=== PATIENT | female | born 1950 | race Caucasian/White ===

== ENCOUNTER 2017-09-27 03:58 | Inpatient (IN) | payer MEDICARE ==
[~2017-09-27] VITALS: Ht 166.4 cm; Wt 78.2 kg
[2017-09-27] VITALS (14 sets, daily range): BP systolic 96–164; BP diastolic 51–70; PULSE 58–81; RESP 14–24; TEMP 96.6–100.4; O2SAT 94–100
[2017-09-27] MEDS ORDERED: LORazepam 2 MG/ML VIAL IV PUSH ONE (04:15)
[2017-09-27] MEDS ORDERED: ONDANSETRON HCL 4 MG/2 ML VIAL IV PUSH ONE (04:15)
[2017-09-27] MEDS ORDERED: MORPHINE SULFATE 2 MG/ML INJ IV PUSH ONE (04:15)
--- NOTE | 2017-09-27 04:18 | PD ---
HPI . Trauma alert Chief Complaint: Trauma (Alert) Time Seen by Provider: 04:09 Travel History International Travel<30 days: No Contact w/Intl Traveler<30days: No Traveled to known affect area: No History of Present Illness HPI Kyara Sarkar approximately 70 years old with a history of spinal stenosis, status post syncope and fall with unknown mechanism of fall. Patient has abrasions to both knees, and as per EMS report, patient has weakness in upper extremities and strange feeling in both hands. Patient also had incontinence en route as well as blood pressure of 80/40 and bradycardia 54 bpm which is improved to a blood pressure of 95/50 at presentation and heart rate of 65. Patient denies having headache but does note some neck pain is on a backboard in a c-collar with strict spinal precautions, patient has full feeling and no apparent weakness of her lower extremities. Patient denies having chest pain or palpitations and does not recall any prodromal symptoms antecedent to her syncope/fall. PFSH Past Medical History Narrative Medical Spinal stenosis Social History Alcohol Use: No Tobacco Use: No Substance Use: No Allergies-Medications (Allergen,Severity, Reaction): Coded Allergies: No Known Allergies (Verified Allergy, Unknown, 09/27/17) Narrative Medication Allergies reviewed. Medication list pending Review of Systems Except as stated in HPI: all other systems reviewed are Neg General / Constitutional: No: Fever Eyes: No: Visual changes HENT: Positive: Neck Pain, No: Headaches Cardiovascular: No: Chest Pain or Discomfort Respiratory: No: Shortness of Breath Gastrointestinal: No: Abdominal Pain Genitourinary: No: Dysuria Musculoskeletal: No: Pain Skin: No Rash Neurologic: Positive: Weakness, Syncope, Paresthesia, Incontinence, Sensory Disturbance Psychiatric: No: Depression Endocrine: No: Polydipsia Hematologic/Lymphatic: No: Easy Bruising Physical Exam Narrative GENERAL: Awake and alert, oriented 3, in no obvious acute distress currently. Blood pressure 100/60, heart rate 65. Afebrile SKIN: Warm and dry. Color is normal deficit cyanosis or pallor HEAD: Atraumatic. Normocephalic. EYES: Pupils equal and round. No scleral icterus. No injection or drainage. ENT: No nasal bleeding or discharge. Mucous membranes pink and moist. NECK: Trachea midline. No JVD. Tender midline, c-collar intact. Strict spinal precautions and immobilization with c-collar and bolsters CARDIOVASCULAR: Regular rate and rhythm. S1-S2 no murmurs rubs or gallops RESPIRATORY: No accessory muscle use. Clear to auscultation. Breath sounds equal bilaterally. GASTROINTESTINAL: Abdomen soft, non-tender, nondistended. Hepatic and splenic margins not palpable. MUSCULOSKELETAL: Extremities without clubbing, cyanosis, or edema. No obvious deformities. NEUROLOGICAL: Awake and alert. Bilateral upper extremity 2/5 weakness, decreased sensation, some hyperesthesia/paresthesia noted. Bilateral lower extremities positive strength 4+/5. Incontinence noted rectally with poor tone PSYCHIATRIC: Appropriate mood and affect; insight and judgment normal. Data Data Last Documented VS Vital Signs Date Time Temp Pulse Resp B/P (MAP) Pulse Ox O2 Delivery O2 Flow Rate FiO2 09/27/17 04:24 58 16 100/51 (67) 100 Room Air 09/27/17 03:59 21 Orders Orders I-Stat Profile (09/27/17 04:02) Complete Blood Count With Diff (09/27/17 04:02) Prothrombin Time / Inr (Pt) (09/27/17 04:02) Act Partial Throm Time (Ptt) (09/27/17 04:02) Type And Screen (09/27/17 04:02) Chest, Single Ap (09/27/17 04:02) Ct Brain W/O Iv Contrast(Rout) (09/27/17 04:02) Ct Cerv Spine W/O Contrast (09/27/17 04:02) Iv Access Insert/Monitor (09/27/17 04:02) Ecg Monitoring (09/27/17 04:02) Oximetry (09/27/17 04:02) Oxygen Administration (09/27/17 04:02) Pelvis, Ap Only (Routine) (09/27/17 ) Mri C Spine W/O Contrast (09/27/17 ) Mri L Spine W/O Contrast (09/27/17 ) Mri T Spine W/O Contrast (09/27/17 ) Ondansetron Inj (Zofran Inj) (09/27/17 04:15) Morphine Inj (Morphine Inj) (09/27/17 04:15) Lorazepam Inj (Ativan Inj) (09/27/17 04:15) Dexamethasone Inj (Decadron Inj) (09/27/17 04:45) Admit Order (Ed Use Only) (09/27/17 04:37) Labs Laboratory Tests Test 09/27/17 04:03 White Blood Count 3.6 TH/MM3 Red Blood Count 3.32 MIL/MM3 Hemoglobin 11.0 GM/DL Bedside Hemoglobin 9.9 G/DL Hematocrit 31.2 % Bedside Hematocrit 29.0 % Mean Corpuscular Volume 93.9 FL Mean Corpuscular Hemoglobin 33.2 PG Mean Corpuscular Hemoglobin Concent 35.3 % Red Cell Distribution Width 12.1 % Platelet Count 204 TH/MM3 Mean Platelet Volume 6.9 FL Neutrophils (%) (Auto) 30.8 % Lymphocytes (%) (Auto) 50.2 % Monocytes (%) (Auto) 16.1 % Eosinophils (%) (Auto) 2.7 % Basophils (%) (Auto) 0.2 % Neutrophils # (Auto) 1.1 TH/MM3 Lymphocytes # (Auto) 1.8 TH/MM3 Monocytes # (Auto) 0.6 TH/MM3 Eosinophils # (Auto) 0.1 TH/MM3 Basophils # (Auto) 0.0 TH/MM3 CBC Comment DIFF FINAL Differential Comment Prothrombin Time 11.2 SEC Prothromb Time International Ratio 1.1 RATIO Activated Partial Thromboplast Time 24.7 SEC Bedside Sodium 136 MMOL/L Bedside Potassium 3.9 MMOL/L Bedside Chloride 101 MMOL/L Bedside Blood Urea Nitrogen 9 MG/DL Bedside Creatinine 0.8 MG/DL Bedside Glucose 115 MG/DL [facility] Medical Decision Making Medical Screen Exam Complete: Yes Emergency Medical Condition: Yes Medical Record Reviewed: Yes Differential Diagnosis Central cord syndrome, spinal injury, spinal shock, abrasion left knee, syncope , mechanical fall Narrative Course MRI notified and en route for stent spinal MRI. Considering patient's upper extremity neurological findings consistent with central cord injury, however will also with having incontinence and poor rectal tone, patient notes mild lower back pain, MRI of the entire spine cervical, thoracic, lumbar ordered CT cervical spine preliminary ED wet read, significant bone spurs posteriorly on the anterior aspect of the spinal canal with significant spinal stenosis and narrowing from C3 through C5 region. This would predispose towards patient's central cord mechanism as noted on presentation and exam. Neurosurgery paged, electrical tech/project manager en route Discussed with Dr Blanchard from neurosurgery, on consult, agree with management. As per Dr. Blanchard, Decadron 10 mg IV ordered, patient admitted to the ICU, case discussed with Dr. Turner technical solutions engineer. Diagnosis Primary Impression: Cervical spinal cord injury Qualified Codes: S14.109A - Unspecified injury at unspecified level of cervical spinal cord, initial encounter Additional Impressions: Central cord syndrome Qualified Codes: S14.129A - Central cord syndrome at unspecified level of cervical spinal cord, initial encounter Syncope and collapse Admitting Information Admitting Physician Requests: Admit Lavelle Salinas MD Sep 27, 2017 04:18
[2017-09-27 04:23] LABS: AUTOMATED NEUTROPHIL # 1.1 TH/MM3 (1.8-7.7); BASOPHIL % 0.2 % (0.0-2.0); EOSINOPHIL # 0.1 TH/MM3 (0-0.4); EOSINOPHIL % 2.7 % (0.0-4.0); HEMATOCRIT 31.2 % (35.0-46.0); LYMPH % 50.2 % (9.0-44.0); LYMPHOCYTE # 1.8 TH/MM3 (1.0-4.8); MEAN CELL VOLUME 93.9 FL (80.0-100.0); MEAN CORPUSCULAR HEMOGLOBIN 33.2 PG (27.0-34.0); MEAN CORPUSCULAR HGB CONC 35.3 % (32.0-36.0); MEAN PLATELET VOLUME 6.9 FL (7.0-11.0); MONO % 16.1 % (0.0-8.0); MONOCYTE # 0.6 TH/MM3 (0-0.9); NEUT % 30.8 % (16.0-70.0); PLATELET COUNT 204 TH/MM3 (150-450); RED BLOOD COUNT 3.32 MIL/MM3 (4.00-5.30); RED CELL DISTRIBUTION WIDTH 12.1 % (11.6-17.2); WHITE BLOOD COUNT 3.6 TH/MM3 (4.0-11.0)
[2017-09-27 04:35] LABS: INTERNATIONAL NORMALIZED RATIO 1.1 RATIO; PROTHROMBIN TIME - PATIENT 11.2 SEC (9.8-11.6)
[2017-09-27] MEDS ORDERED: DEXAMETHASONE SOD PHOS 20 MG/5 ML VIAL IV PUSH ONE (04:45)
--- NOTE | 2017-09-27 05:03 | RADRPT ---
EXAM DATE/TIME: 09/27/2017 04:00 [facility] COMPARISON: No previous studies available for comparison. INDICATIONS : Trauma, fall. MEDICAL HISTORY : Unobtainable. SURGICAL HISTORY : Unobtainable. ENCOUNTER: Initial ACUITY: 1 day PAIN SCORE: Non-responsive. LOCATION: Bilateral pelvis FINDINGS: A single frontal view of the pelvis demonstrates no evidence of fracture. The bony pelvic ring is in tact. Bony mineralization is normal. The soft tissues are intact. CONCLUSION: 1. No acute fracture or dislocation. Keith Gutierres MD on September 27, 2017 at 5:01 Board Certified Radiologist. This report was verified electronically.
--- NOTE | 2017-09-27 05:03 | RADRPT ---
EXAM DATE/TIME: 09/27/2017 04:00 [facility] COMPARISON: No previous studies available for comparison. INDICATIONS : Trauma, fall. MEDICAL HISTORY : Unobtainable. SURGICAL HISTORY : Unobtainable ENCOUNTER: Initial ACUITY: 1 day PAIN SCORE: Non-responsive. LOCATION: Bilateral chest FINDINGS: A single view of the chest demonstrates the lungs to be symmetrically aerated without evidence of mas s, infiltrate or effusion. The cardiomediastinal contours are unremarkable. Osseous structures are intact. CONCLUSION: 1. Negative portable chest status post trauma. Keith Gutierres MD on September 27, 2017 at 5:02 Board Certified Radiologist. This report was verified electronically.
--- NOTE | 2017-09-27 05:05 | RADRPT ---
EXAM DATE/TIME: 09/27/2017 04:13 [facility] COMPARISON: No previous studies available for comparison. INDICATIONS : Trauma alert; fall, neck injury. RADIATION DOSE: 66.34 CTDIvol (mGy) MEDICAL HISTORY : Non-responsive. SURGICAL HISTORY : Non-responsive. ENCOUNTER: Initial ACUITY: 1 day PAIN SCALE: 6/10 LOCATION: cranial TECHNIQUE: Multiple contiguous axial images were obtained of the head. Using automated exposure control and adj ustment of the mA and/or kV according to patient size, radiation dose was kept as low as reasonably a chievable to obtain optimal diagnostic quality images. DICOM format image data is available electro nically for review and comparison. FINDINGS: CEREBRUM: The ventricles are normal for age. No evidence of midline shift, mass lesion, hemorrhage or acute in farction. No extra-axial fluid collections are seen. POSTERIOR FOSSA: The cerebellum and brainstem are intact. The 4th ventricle is midline. The cerebellopontine angle i s unremarkable. EXTRACRANIAL: The visualized portion of the orbits is intact. SKULL: The calvaria is intact. No evidence of skull fracture. CONCLUSION: 1. No acute intracranial abnormality. Keith Gutierres MD on September 27, 2017 at 5:03 Board Certified Radiologist. This report was verified electronically.
--- NOTE | 2017-09-27 05:11 | RADRPT ---
EXAM DATE/TIME: 09/27/2017 04:13 [facility] COMPARISON: No previous studies available for comparison. INDICATIONS : Trauma alert; fall, neck injury. RADIATION DOSE: 21.06 CTDIvol (mGy) MEDICAL HISTORY : Non-responsive. SURGICAL HISTORY : Non-responsive. ENCOUNTER: Initial ACUITY: 1 day PAIN SCALE: 6/10 LOCATION: Bilateral neck TECHNIQUE: Volumetric scanning of the cervical spine was performed. Multiplanar reconstructions i n the sagittal, coronal and oblique axial planes were performed. Using automated exposure control a nd adjustment of the mA and/or kV according to patient size, radiation dose was kept as low as reason ably achievable to obtain optimal diagnostic quality images. DICOM format image data is available e lectronically for review and comparison. 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 Vertebral body heigh ts are maintained. Osseous structures are intact without evidence for acute bony fracture. Dens is in tact. Sagittal alignment is maintained. There is a normal C1-2 relationship. Facets are normally alig cathy. There is no significant prevertebral soft tissue hematoma. Degenerative spondylosis of the lower cervical spine most prominently at C5-6. Moderate central canal bony central canal stenosis at C4 le brendan do to prominent ossification of the posterior longitudinal ligament. No significant cervical salomón opathy or gross mass. Subcentimeter left thyroid nodule. Visualized lung apices are clear without pne umothorax. CONCLUSION: 1. No acute fracture or subluxation. 2. 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 Keith Gutierres MD on September 27, 2017 at 5:04 Board Certified Radiologist. This report was verified electronically.
[2017-09-27] MEDS ORDERED: BISACODYL 10 MG SUPP RECTAL PRN (05:30)
[2017-09-27] MEDS ORDERED: SODIUM CHLORIDE 0.9% FLUSH 10 ML FLUSH IV FLUSH PRN (05:30)
[2017-09-27] MEDS ORDERED: MISCELLANEOUS NURSING INFORMATION XX SCH (05:30)
[2017-09-27] MEDS ORDERED: RESP: ALBUTEROL 2.5 MG/IPRATROPIUM 0.5 MG NEB (PRN) INH (05:30)
[2017-09-27] MEDS ORDERED: MAGNESIUM HYDROXIDE SUSP 30 ML CUP PO PRN (05:30)
[2017-09-27] MEDS ORDERED: SODIUM CHLOR 0.9% 1000 ML INJ 1,000 ML IV SCH (05:30)
[2017-09-27] MEDS ORDERED: TEMAZEPAM 15 MG CAP PO PRN (05:30)
[2017-09-27] MEDS ORDERED: SENNOSIDES 8.6 MG TAB PO PRN (05:30)
[2017-09-27] MEDS ORDERED: CHLORHEXIDINE GLUCONATE 2 % 1 PACK (2 CLOTHS) TOP PRN (05:30)
[2017-09-27] MEDS ORDERED: ONDANSETRON HCL 4 MG/2 ML VIAL IV PUSH PRN (05:30)
[2017-09-27] MEDS ORDERED: LACTULOSE SYRUP 20 GM/30 ML CUP PO PRN (05:30)
--- NOTE | 2017-09-27 05:35 | HHI.HP ---
HPI Service Critical Care Medicine Primary Care Physician Jaylon Pope Jr, MD Admission Diagnosis Cervical Spinal Cord Injury (Central Cord Syndrome) Diagnosis: Travel History International Travel<30 Days: No Contact w/Intl Traveler <30 Da: No Traveled to Known Affected Are: No History of Present Illness 70 years old female with a history of spinal stenosis, had an episode of syncope and fall with unknown mechanism of fall. Patient has abrasions to both knees. The patient has weakness in upper extremities and strange feeling in both hands. Patient also had incontinence en route as well as blood pressure of 80/40 and bradycardia 54 bpm which is improved to a blood pressure of 95/50 at presentation and heart rate of 65. Patient denies having headache but does note some neck pain is on a backboard in a c-collar with strict spinal precautions, patient has full feeling and no apparent weakness of her lower extremities. The CT of the C-spine shows prominent ossification of the posterior longitudinal ligament at C3-5 and C7-T2 with moderate bony central canal narrowing at C4 level. MRI of C and thoracic spine pending Review of Systems Constitutional: DENIES: Diaphoretic episodes, Fatigue, Fever, Weight gain, Weight loss, Chills, Dizziness, Change in appetite, Night Sweats Endocrine: DENIES: Abnorml menstrual pattern, Heat/cold intolerance, Polydipsia , Polyuria, Polyphagia Eyes: COMPLAINS OF: Blurred vision, DENIES: Diplopia, Eye inflammation, Eye pain, Vision loss, Photosensitivity, Double Vision Ears, nose, mouth, throat: DENIES: Tinnitus, Hearing loss, Vertigo, Nasal discharge, Oral lesions, Throat pain, Hoarseness, Ear Pain, Running Nose, Epistaxis, Sinus Pain, Toothache, Odynophagia Respiratory: DENIES: Apneas, Cough, Snoring, Wheezing, Hemoptysis, Sputum production, Shortness of breath Cardiovascular: DENIES: Chest pain, Palpitations, Syncope, Dyspnea on Exertion , PND, Lower Extremity Edema, Orthopnea, Claudication Gastrointestinal: DENIES: Abdominal pain, Black stools, Bloody stools, Constipation, Diarrhea, Nausea, Vomiting, Difficulty Swallowing, Anorexia Genitourinary: DENIES: Abnormal vaginal bleeding, Dysmenorrhea, Dyspareunia, Sexual dysfunction, Urinary frequency, Urinary incontinence, Urgency, Hematuria , Dysuria, Nocturia, Vaginal discharge Musculoskeletal: DENIES: Joint pain, Muscle aches, Stiffness, Joint Swelling, Back pain, Neck pain Integumentary: DENIES: Abnormal pigmentation, Pruritus, Rash, Nail changes, Breast masses, Breast skin changes, Nipple discharge Hematologic/lymphatic: DENIES: Bruising, Lymphadenopathy Immunologic/allergic: DENIES: Eczema, Urticaria Neurologic: COMPLAINS OF: Abnormal gait, Paresthesias, Poor Balance, DENIES: Headache, Localized weakness, Seizures, Speech Problems, Tremor Psychiatric: DENIES: Anxiety, Confusion, Mood changes, Depression, Hallucinations, Agitation, Suicidal Ideation, Homicidal Ideation, Delusions Past Family Social History Allergies: Coded Allergies: No Known Allergies (Verified Allergy, Unknown, 09/27/17) Past Medical History Spinal stenosis Past Surgical History No past surgical history Family History No family history of cancer Social History Alcohol Use: No Tobacco Use: No Substance Use: No Physical Exam Vital Signs Vital Signs Date Time Temp Pulse Resp B/P (MAP) Pulse Ox O2 Delivery O2 Flow Rate FiO2 09/27/17 05:09 14 96/51 (66) 96 Room Air 09/27/17 04:24 58 16 100/51 (67) 100 Room Air 09/27/17 03:59 100 09/27/17 03:59 100 21 Physical Exam GENERAL: Well-nourished, well-developed patient. SKIN: Warm and dry. HEAD: Normocephalic. EYES: No scleral icterus. No injection or drainage. NECK: Supple, trachea midline. No JVD or lymphadenopathy. CARDIOVASCULAR: Regular rate and rhythm without murmurs, gallops, or rubs. RESPIRATORY: Breath sounds equal bilaterally. No accessory muscle use. GASTROINTESTINAL: Abdomen soft, non-tender, nondistended. MUSCULOSKELETAL: No cyanosis, or edema. BACK: Nontender without obvious deformity. NEURO EXAM: Awake and alert. Bilateral upper extremity 2/5 weakness, decreased sensation, some hyperesthesia/paresthesia noted. Bilateral lower extremities positive strength 4+/5. Laboratory Laboratory Tests Test 09/27/17 04:03 White Blood Count 3.6 Red Blood Count 3.32 Hemoglobin 11.0 Bedside Hemoglobin 9.9 Hematocrit 31.2 Bedside Hematocrit 29.0 Mean Corpuscular Volume 93.9 Mean Corpuscular Hemoglobin 33.2 Mean Corpuscular Hemoglobin Concent 35.3 Red Cell Distribution Width 12.1 Platelet Count 204 Mean Platelet Volume 6.9 Neutrophils (%) (Auto) 30.8 Lymphocytes (%) (Auto) 50.2 Monocytes (%) (Auto) 16.1 Eosinophils (%) (Auto) 2.7 Basophils (%) (Auto) 0.2 Neutrophils # (Auto) 1.1 Lymphocytes # (Auto) 1.8 Monocytes # (Auto) 0.6 Eosinophils # (Auto) 0.1 Basophils # (Auto) 0.0 CBC Comment DIFF FINAL Differential Comment Prothrombin Time 11.2 Prothromb Time International Ratio 1.1 Activated Partial Thromboplast Time 24.7 Bedside Sodium 136 Bedside Potassium 3.9 Bedside Chloride 101 Bedside Blood Urea Nitrogen 9 Bedside Creatinine 0.8 Bedside Glucose 115 Result Diagram: 09/27/17 0403 Septic Shock Reassessment Septic shock perfusion: reassessment completed Caprini VTE Risk Assessment Caprini VTE Risk Assessment: Mod/High Risk (score >= 2) Caprini Risk Assessment Model Point Value = 1 Point Value = 2 Point Value = 3 Point Value = 5 Age 41-60 Minor surgery BMI > 25 kg/m2 Swollen legs Varicose veins or History of unexplained or recurrent spontaneous Oral contraceptives or hormone replacement Sepsis (< 1 month) Serious lung disease, including pneumonia (< 1 month) Abnormal pulmonary function Acute myocardial infarction Congestive heart failure (< 1 month) History of inflammatory bowel disease Medical patient at bed rest Age 61-74 Arthroscopic surgery Major open surgery (> 45 min) Laparoscopic surgery (> 45 min) Malignancy Confined to bed (> 72 hours) Immobilizing plaster cast Central venous access Age >= 75 History of VTE Family history of VTE Factor V Leiden Prothrombin 30038L Lupus anticoagulant Anticardiolipin antibodies Elevated serum homocysteine Heparin-induced thrombocytopenia Other congenital or acquired thrombophilia Stroke (< 1 month) Elective arthroplasty Hip, pelvis, or leg fracture Acute spinal cord injury (< 1 month) Prophylaxis Regimen Total Risk Factor Score Risk Level Prophylaxis Regimen 0-1 Low Early ambulation 2 Moderate Order ONE of the following: *Sequential Compression Device (SCD) *Heparin 5000 units SQ BID 3-4 Higher Order ONE of the following medications: *Heparin 5000 units SQ TID *Enoxaparin/Lovenox 40 mg SQ daily (WT < 150 kg, CrCl > 30 mL/min) *Enoxaparin/Lovenox 30 mg SQ daily (WT < 150 kg, CrCl > 10-29 mL/min) *Enoxaparin/Lovenox 30 mg SQ BID (WT < 150 kg, CrCl > 30 mL/min) AND/OR *Sequential Compression Device (SCD) 5 or more Highest Order ONE of the following medications: *Heparin 5000 units SQ TID (Preferred with Epidurals) *Enoxaparin/Lovenox 40 mg SQ daily (WT < 150 kg, CrCl > 30 mL/min) *Enoxaparin/Lovenox 30 mg SQ daily (WT < 150 kg, CrCl > 10-29 mL/min) *Enoxaparin/Lovenox 30 mg SQ BID (WT < 150 kg, CrCl > 30 mL/min) AND *Sequential Compression Device (SCD) Assessment and Plan Assessment and Plan Spinal cord injury - Severe C-spine stenosis as a underlying condition - Hyperextension injury - Decadron per neurosurgery request - C collar - MRI pending - MAP goal above 85 - PT and OT eval and treat as tolerated - Neurosurgical evaluation pending Hypotension - Leukopenia - Blood cultures/urine cultures - Antibiotics if indicated - Aggressive IV fluid hydration Syncope - Series of troponins - Telemetry - 2-D echo - Ultrasound carotids DVT GI prophylaxis - Teds SCDs - Lovenox - Pepcid Critical Care: The total critical care time was 35 minutes. Time to perform other separately billable procedures was not included in the critical care time. Joe Turner MD Sep 27, 2017 5:35 am
[2017-09-27] MEDS ORDERED: TERBUTALINE INJ 1 MG/ML AMP SQ PRN ×2 (05:45→06:15)
[2017-09-27] MEDS ORDERED: PHENYLEPHRINE INJ 40 MG in DEXTROSE 5% IN WATE 500 ML INJ 496 ML IV PRN ×4 (05:45→15:00)
[2017-09-27] MEDS ORDERED: ENOXAPARIN SODIUM 40 MG/0.4 ML SYRINGE SQ SCH (06:00)
[2017-09-27] MEDS ORDERED: SODIUM CHLOR 0.9% 1000 ML INJ 1,000 ML IV ONE ×3 (06:00)
[2017-09-27] MEDS ORDERED: PHENYLEPHRINE HCL 10 MG/ML VIAL ONE ×2 (06:04→06:11)
--- NOTE | 2017-09-27 06:06 | RADRPT ---
EXAM DATE/TIME: 09/27/2017 05:00 [facility] COMPARISON: No previous studies available for comparison. INDICATIONS : Trauma. Fell from standing, Upper extremity numbness, loss of bowel control. MEDICAL HISTORY : Hypertension. Diabetes mellitus type 2. SURGICAL HISTORY : Hysterectomy. Discectomy, lumbar. Cholecystectomy. ENCOUNTER: Initial ACUITY: 1 day PAIN SCORE: 4/10 LOCATION: [facility] TECHNIQUE: Multiplanar, multisequence MRI examination of the cervical spine was performed. FINDINGS: VERTEBRAE: Normal vertebral body height. Homogeneous marrow signal. ALIGNMENT: Size alignment is maintained. CORD: Flattening of the cervical cord at C3-6 without significant cord signal abnormality. POST FOSSA: The cerebellar tonsils are normal in position. C2-C3: The thecal sac has a normal configuration. There is no evidence of disc herniation or spinal canal s tenosis. The neural foramina are patent bilaterally. C3-C4: Mild diffuse disc bulge. Prominent posterior longitudinal ligament calcifications with resultant sev ere central canal narrowing at to approximately 5 mm. There is flattening of the cervical cord withou t significant cord signal abnormality. Neuroforamina are patent bilaterally. C4-C5: Mild diffuse disc bulge. Prominent posterior longitudinal ligament calcifications with resultant sev ere central canal narrowing at to approximately 5 mm. There is flattening of the cervical cord with v jaja subtle increased central cord signal. Neuroforamina are patent bilaterally. Mild bilateral facet arthropathy. C5-C6: Mild diffuse disc bulge. Prominent posterior longitudinal ligament calcifications with resultant sev ere central canal narrowing at to approximately 6 mm. There is flattening of the cervical cord withou t significant cord signal abnormality. Neuroforamina are patent bilaterally. Mild bilateral facet art hropathy. C6-C7: The thecal sac has a normal configuration. There is no evidence of disc herniation or spinal canal s tenosis. The neural foramina are patent bilaterally. C7-T1: Right eccentric posterior disc osteophyte complex with less prominent opacity ossification of the pos terior longitudinal ligament. Central canal measures 9 mm. No significant neural foraminal narrowing. CONCLUSION: 1. No acute fracture or subluxation. 2. Prominent posterior longitudinal ligament calcifications with resultant severe central canal narro wing at C3-6. There is flattening of cervical cord at these levels with very subtle cord signal abnor mality at C4-5. Keith Gutierres MD on September 27, 2017 at 5:58 Board Certified Radiologist. This report was verified electronically.
--- NOTE | 2017-09-27 06:14 | RADRPT ---
EXAM DATE/TIME: 09/27/2017 05:00 [facility] COMPARISON: MRI CERVICAL SPINE W/O CONTRAST, September 27, 2017, 5:00. INDICATIONS : Trauma. Fell from standing, Upper extremity numbness, loss of bowel control. MEDICAL HISTORY : Hypertension. Diabetes mellitus type 2. SURGICAL HISTORY : Discectomy, lumbar. Cholecystectomy. Hysterectomy. ENCOUNTER: Initial ACUITY: 1 day PAIN SCORE: 4/10 LOCATION: Paraspinal TECHNIQUE: Multiplanar multisequence MRI of the thoracic spine was performed. FINDINGS: VERTEBRA: Normal vertebral body height. Homogeneous marrow signal. ALIGNMENT: Sagittal alignment is maintained. CORD: Normal position and configuration. T1-T2: Normal. T2-T3: The thecal sac has a normal diameter. No evidence of disc bulge or protrusion. T3-T4: The thecal sac has a normal diameter. No evidence of disc bulge or protrusion. T4-T5: Disc space narrowing with posterior disc osteophyte complex resulting in mild effacement of the anter ior thecal sac. No significant neural foraminal stenosis. T5-T6: Disc space narrowing. Minimal diffuse disc bulge without significant central canal or neural foramina l stenosis. T6-T7: Disc space narrowing. Left paracentral disc protrusion effacing the left anterior lateral recess. No significant neural foraminal stenosis. T7-T8: Disc space narrowing. Posterior disc osteophyte complex with mild effacement of the anterior thecal s ac. No significant neural foraminal stenosis. T8-T9: Disc space narrowing. The thecal sac has a normal diameter. No evidence of disc bulge or protrusion T9-T10: Disc space narrowing with minimal posterior disc osteophytes and bilateral facet arthropathy without significant central canal stenosis. T10-T11: The thecal sac has a normal diameter. No evidence of disc bulge or protrusion. T11-T12: The thecal sac has a normal diameter. No evidence of disc bulge or protrusion. T12-L1: The thecal sac has a normal diameter. No evidence of disc bulge or protrusion. CONCLUSION: 1. Degenerative spondylosis of the mid thoracic spine most prominently at T6-9. There is effacement o f the left anterior lateral recess at T6-7. Otherwise, no significant central canal stenosis or cord signal abnormality. 1. Keith Gutierres MD on September 27, 2017 at 6:05 Board Certified Radiologist. This report was verified electronically.
[2017-09-27] MEDS ORDERED: PHENYLEPHRINE 40 MG in D5W 500 ML IV PRN (06:15)
--- NOTE | 2017-09-27 06:22 | RADRPT ---
EXAM DATE/TIME: 09/27/2017 05:00 [facility] COMPARISON: PELVIS AP ONLY, September 27, 2017, 4:00. INDICATIONS : Trauma. Fell from standing, Upper extremity numbness, loss of bowel control. MEDICAL HISTORY : Hypertension. Diabetes mellitus type 2. SURGICAL HISTORY : Discectomy, lumbar. Hysterectomy. Cholecystectomy. ENCOUNTER: Initial ACUITY: 1 day PAIN SCORE: 5/10 LOCATION: Paraspinal TECHNIQUE: Multiplanar multisequence MRI of the lumbar spine was performed without contrast. FINDINGS: The most caudal appearing lumbar vertebra is numbered as L5. Apparent sacralization of L5. VERTEBRAE: Slightly heterogeneous degenerative signal. Mild dextroscoliosis of the lumbar spine. Sagittal alignm ent is maintained. CONUS: Normal level and configuration. T12-L1: Bilateral facet arthropathy. No significant central canal or neural foraminal stenosis. L1-L2: Mild right eccentric disc bulge without central canal or neural foraminal stenosis. L2-L3: Diffuse disc bulge, prominent ligamentum flavum hypertrophy and mild bilateral facet arthropathy. Feli tral canal narrowing to 9 mm. Caudal mild bilateral neural foraminal narrowing. L3-L4: Disc space narrowing with diffuse disc bulge and posterior disc protrusion, ligamentum flavum hypertr ophy and bilateral moderate facet arthropathy. Central canal narrowing to approximately 6 mm. Mild ca udal bilateral neural foraminal narrowing. L4-L5: Disc space narrowing with diffuse disc bulge, posterior osteophytes and central disc protrusion. Mild bilateral facet arthropathy. Central canal narrowing to approximately 9 mm. Mild left and mild to mo derate right caudal neural foraminal narrowing. L5-S1: The thecal sac has a normal diameter. No evidence of disc bulge or protrusion. The neural foramina are patent bilaterally. CONCLUSION: 1. Multilevel degenerative spondylosis of the lumbar spine most prominently at L3-4 with moderate to severe central canal narrowing to 6 mm. 2. Please see above for detailed description of each level. Keith Gutierres MD on September 27, 2017 at 6:14 Board Certified Radiologist. This report was verified electronically.
[2017-09-27] MEDS: SODIUM CHLORIDE 0.9% FLUSH 10 ML FLUSH IV FLUSH SCH ×2 (07:56→20:37)
[2017-09-27] MEDS: DOCUSATE SODIUM 50 MG/SENNA 8.6 MG TAB PO SCH ×2 (08:48→20:38)
[2017-09-27] MEDS: FAMOTIDINE 20 MG/2 ML VIAL IV PUSH SCH ×2 (08:50→20:37)
--- NOTE | 2017-09-27 09:26 | RADRPT ---
EXAM DATE/TIME: 09/27/2017 08:41 [facility] COMPARISON: No previous studies available for comparison. INDICATIONS : Syncope. MEDICAL HISTORY : Hypercholesterolemia. Gastroesophageal reflux disease. Blurred vision. Arthritis. Paresthesia. Diab etes. SURGICAL HISTORY : Cholecystectomy. Hysterectomy. Laminectomy. ENCOUNTER: Initial ACUITY: 1 day PAIN SCORE: 0/10 LOCATION: Bilateral neck PEAK SYSTOLIC VELOCITIES (cm/sec): ICA/CCA RATIO: Right: 0.8 Left: 0.8 ICA: Right: 110 Left: 127 CCA: Right: 145 Left: 155 ECA: Right: 96.3 Left: 85 VERTEBRAL: Right: 58 antegrade Left: 54 antegrade Elevated flow velocities and ICA/CCA ratios have been found to correlate with increased degrees of vessel stenosis, calculated as percentage of diameter relative to a normal segment of distal ICA/CCA FINDINGS: RIGHT CAROTID: No significant stenosis is visualized. The waveforms are within normal limits. LEFT CAROTID: No significant stenosis is visualized. The waveforms are within normal limits. VERTEBRAL ARTERIES: Antegrade flow is seen in both vertebral arteries. MISCELLANEOUS: None. CONCLUSION: No evidence of flow-limiting carotid stenosis. Quique Goodson MD on September 27, 2017 at 9:25 Board Certified Radiologist. This report was verified electronically.
[2017-09-27] MEDS ORDERED: DEXTROSE 50% IN WATER 50 ML VIAL(D50) IV PUSH PRN (10:15)
[2017-09-27] MEDS ORDERED: GLUCAGON 1 MG/ML VIAL OTHER PRN (10:15)
[2017-09-27] MEDS: NS + KCL 20 MEQ INJ 1,000 ML IV SCH ×2 (10:15→17:52)
[2017-09-27 10:28] LABS: AUTOMATED NEUTROPHIL # 7.6 TH/MM3 (1.8-7.7); BASOPHIL % 0.2 % (0.0-2.0); EOSINOPHIL % 0.1 % (0.0-4.0); HEMOGLOBIN 11.3 GM/DL (11.6-15.3); LYMPH % 7.5 % (9.0-44.0); LYMPHOCYTE # 0.6 TH/MM3 (1.0-4.8); MEAN CELL VOLUME 94.7 FL (80.0-100.0); MEAN CORPUSCULAR HEMOGLOBIN 33.4 PG (27.0-34.0); MEAN CORPUSCULAR HGB CONC 35.3 % (32.0-36.0); MEAN PLATELET VOLUME 6.9 FL (7.0-11.0); MONO % 2.6 % (0.0-8.0); MONOCYTE # 0.2 TH/MM3 (0-0.9); NEUT % 89.6 % (16.0-70.0); PLATELET COUNT 214 TH/MM3 (150-450); RED BLOOD COUNT 3.38 MIL/MM3 (4.00-5.30); RED CELL DISTRIBUTION WIDTH 12.3 % (11.6-17.2); WHITE BLOOD COUNT 8.5 TH/MM3 (4.0-11.0)
[2017-09-27 10:57] LABS: ALBUMIN 3.2 GM/DL (3.4-5.0); ALKALINE PHOSPHATASE 60 U/L (45-117); ALT (GPT) 107 U/L (10-53); AST (GOT) 91 U/L (15-37); BICARBONATE 23.3 MEQ/L (21.0-32.0); BLOOD UREA NITROGEN 9 MG/DL (7-18); CALCIUM 7.2 MG/DL (8.5-10.1); CHLORIDE 105 MEQ/L (98-107); CREATININE 0.75 MG/DL (0.50-1.00); GLOMERULAR FILTRATION RATE 77 ML/MIN (>89); GLUCOSE,RANDOM 160 MG/DL (74-106); MAGNESIUM 1.7 MG/DL (1.5-2.5); PHOSPHORUS 2.4 MG/DL (2.5-4.9); SODIUM (NA) 135 MEQ/L (136-145); TOTAL BILIRUBIN ADULT 0.3 MG/DL (0.2-1.0); TOTAL PROTEIN 6.7 GM/DL (6.4-8.2); TROPONIN I LESS THAN 0.02 NG/ML (0.02-0.05)
[2017-09-27 11:00] LABS: CALCIUM-PROTEIN CORRECTED 7.4 MG/DL (8.5-10.1)
[2017-09-27] MEDS: DEXAMETHASONE SOD PHOS 4 MG/ML VIAL IV PUSH SCH ×2 (11:26→17:52)
[2017-09-27] MEDS: HYDROmorphone HCL PF 2 MG/ML VIAL IV PRN ×3 (11:26→21:47)
--- NOTE | 2017-09-27 11:50 | MB ---
cc: Emil Chinchilla MD, Alfonsa MD DATE OF CONSULT: 09/27/2017 REASON FOR CONSULTATION: Cervical spinal cord injury HISTORY OF PRESENT ILLNESS: This is a 66 year-old female who this morning had a syncopal episode while she was in the bathroom urinating. She felt light-headed and dizzy prior to this and fell and lost consciousness. The next thing she remembers waking up with her screaming at her and slapping her face and she was unable to move her arms or legs with loss of complete sensation in the whole body. She also relates that she was having a difficult time exchanging air and the relates that she was very pale. Subsequently, her sensation started to improve more so in the legs than arms along with movement, although she still has numbness in her upper extremities and inability to move her upper extremities, but the lower extremity strength is improving. She was bradycardic and hypotensive en route which has improved since her admission, but she has also been placed on phenylephrine IV drip to provide hemodynamic support. She relates that she has had two syncopal episodes, one a couple years ago and one as a child, although does not relate having had any workup for this. She denies any chest pain or shortness of breath. She had a lumbar laminectomy by Dr. 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 She relate the history of cervical stenosis in the past, but this was treated conservatively. Trauma workup on presentation this morning as a trauma alert included a CT scan of the head which was negative for any intracranial abnormality. CT of the cervical spine reveals significant ossification of the posterior longitudinal ligament extending from the C3-C5 levels along with some C7-T2 ossification. Also, there is significant stenosis in the cervical spine from this. No fractures are noted. She subsequently has also had an MRI scan of the cervical and thoracic spine which reveals severe stenosis from C3-C7 levels with cord compression and cord contusion injury at the C4-5 level. Pelvis x-rays are negative. She has been admitted to the intensive care unit for close neurologic monitoring and hemodynamic support with IV fluids and vasopressors on board. She also initially received Decadron. PAST MEDICAL HISTORY: 1. Cervical spinal stenosis. 2. Lumbar laminectomy with chronic right foot and leg weakness. 3. Cholecystectomy. 4. Diet controlled diabetes mellitus. MEDICATIONS: None. ALLERGIES: NO KNOWN DRUG ALLERGIES. SOCIAL HISTORY: She denies any alcohol or tobacco use. She is and her is here with her. FAMILY HISTORY: Coronary artery disease and diabetes in mother and father. REVIEW OF SYSTEMS: Complains of neck pain. Complains of dizziness and light headedness, although denies any headaches. She complains of some blurred vision. Initially complains of dyspnea, but this has resolved. Denies any chest pain or palpitations. Complains of numbness in the upper extremities. Complains of inability to move the upper extremities. Relates that she has weakness in the lower extremities, but this is improving. No history of incontinence prior to this, although she has been unable to void since the syncopal episode and the fall this morning. No fevers or chills. No history of easy bleeding or bruising. No recent weight gain or weight loss. Otherwise review of systems is negative for her other systems. LABORATORY STUDIES: White blood cell count 3.6, hemoglobin 11, platelet count 204, PT 11.2, INR 1.1, PTT 24.7. Sodium 137, potassium 3.9, BUN 9, creatinine 0.8, glucose 115. Toxicology screen is negative. PHYSICAL EXAM: VITALS: Temperature 98.6, pulse at this point is 80, blood pressure 97/53 on vasopressors, respiratory rate 17, oxygen saturation is 94% on room air. HEAD: Normocephalic. No Mederos's or raccoon sign. NECK: Immobilized in a hard collar. CHEST: Clear to auscultation bilaterally. HEART: Regular rate and rhythm. Normal S1 and S2. No murmurs. ABDOMEN: Soft, nontender. No hepatosplenomegaly. EXTREMITIES: No cyanosis, edema or deformity. SKIN: Warm and dry with no rashes, pustules or abrasions noted. GENERAL CONDITION: This is an elderly obese female in no acute distress. EYES: No icterus, injection or drainage. Pupils are equal and reactive. EARS, NOSE AND THROAT: No nasal bleeding or hemotympanum. Mucous membranes are pink and moist. NEUROLOGIC: She is awake and alert. She is oriented x 3. Pupils are equal and reactive. Extraocular muscles are intact. Face is symmetric. Tongue is midline. Motor strength in the upper extremities, she is 0/5 in the deltoids, biceps she is 1/5, triceps 0/5, hand intrinsics 0/5. In the lower extremities, she has iliopsoas and quadriceps which is 3/5, right dorsiflexion and plantar flexion 3/5, left is 4-/5. The patient has light touch sensation in the lower extremity which she relates is fairly normal, although complains of numbness to light touch sensation in the upper extremities with hyperesthesias. She is incontinent and has a catheter in place. Negative Babinski. IMPRESSION: 1. 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 She has multi-level cervical stenosis in particular from C3-C6 level predominantly from osteophyte posterior longitudinal ligament along with disk osteophyte complexes with spinal cord compression and contusion. 2. Spinal shock with associated hypotension and bradycardia on vasopressor support. 3. Diabetes mellitus. PLAN: The patient will be monitored closely in the surgical intensive care unit with hemodynamic and vasopressor support for the spinal shock. We will put her on a short course of steroids for the cord contusion and swelling. Once she is hemodynamically more stable, I would recommend posterior C3-C6 cervical decompression with lateral mass fixation. The risks and benefits have been discussed with the patient and her along with the option of nonsurgical management. They want to proceed with surgery when she is stable to do so. In the meantime, we will continue with supportive care and DVT and gastrointestinal stress ulcer prophylaxis along with insulin sliding scale coverage. She will need extensive physical and occupational therapy and rehabilitation subsequently. It may take her a year to improve from her spinal cord injury, but despite aggressive measures, she may still have significant deficits and they understand that. MD VINOD Viramontes/EITAN/ , 10:06 AM , 11:25 AM
[2017-09-27] MEDS: INSULIN NovoLIN REGULAR SUPPLEMENTAL SCALE SQ SCH ×3 (12:00→20:46)
[2017-09-27 14:03] LABS: AUTOMATED NEUTROPHIL # 6.9 TH/MM3 (1.8-7.7); BASOPHIL % 0.3 % (0.0-2.0); HEMATOCRIT 32.6 % (35.0-46.0); HEMOGLOBIN 11.2 GM/DL (11.6-15.3); LYMPH % 7.2 % (9.0-44.0); LYMPHOCYTE # 0.5 TH/MM3 (1.0-4.8); MEAN CELL VOLUME 94.7 FL (80.0-100.0); MEAN CORPUSCULAR HEMOGLOBIN 32.6 PG (27.0-34.0); MEAN CORPUSCULAR HGB CONC 34.5 % (32.0-36.0); MEAN PLATELET VOLUME 6.8 FL (7.0-11.0); MONO % 1.7 % (0.0-8.0); MONOCYTE # 0.1 TH/MM3 (0-0.9); NEUT % 90.8 % (16.0-70.0); PLATELET COUNT 226 TH/MM3 (150-450); RED BLOOD COUNT 3.44 MIL/MM3 (4.00-5.30); RED CELL DISTRIBUTION WIDTH 12.5 % (11.6-17.2); WHITE BLOOD COUNT 7.6 TH/MM3 (4.0-11.0)
[2017-09-27] MEDS: PHENYLEPHRINE INJ 40 MG in DEXTROSE 5% IN WATE 500 ML INJ 496 ML IV PRN ×2 (16:40)
[2017-09-27] MEDS ORDERED: PAXI10TA8 PO (20:21)
[2017-09-28] VITALS (13 sets, daily range): BP systolic 112–150; BP diastolic 17–66; PULSE 66–81; RESP 9–18; TEMP 98.8–99.9; O2SAT 96–99
[2017-09-28] MEDS: CHLORHEXIDINE GLUCONATE 2 % 1 PACK (2 CLOTHS) TOP SCH (00:53)
[2017-09-28] MEDS: DEXAMETHASONE SOD PHOS 4 MG/ML VIAL IV PUSH SCH ×5 (00:53→23:15)
[2017-09-28] MEDS: NS + KCL 20 MEQ INJ 1,000 ML IV SCH ×3 (02:32→18:15)
[2017-09-28] MEDS: HYDROmorphone HCL PF 2 MG/ML VIAL IV PRN ×2 (02:37→23:15)
[2017-09-28 04:05] LABS: AUTOMATED NEUTROPHIL # 6.4 TH/MM3 (1.8-7.7); BASOPHIL % 0.2 % (0.0-2.0); HEMATOCRIT 31.4 % (35.0-46.0); HEMOGLOBIN 11.1 GM/DL (11.6-15.3); LYMPH % 12.7 % (9.0-44.0); MEAN CELL VOLUME 94.5 FL (80.0-100.0); MEAN CORPUSCULAR HEMOGLOBIN 33.4 PG (27.0-34.0); MEAN CORPUSCULAR HGB CONC 35.3 % (32.0-36.0); MEAN PLATELET VOLUME 6.8 FL (7.0-11.0); MONO % 5.6 % (0.0-8.0); MONOCYTE # 0.4 TH/MM3 (0-0.9); NEUT % 81.5 % (16.0-70.0); PLATELET COUNT 222 TH/MM3 (150-450); RED BLOOD COUNT 3.32 MIL/MM3 (4.00-5.30); RED CELL DISTRIBUTION WIDTH 12.2 % (11.6-17.2); WHITE BLOOD COUNT 7.8 TH/MM3 (4.0-11.0)
[2017-09-28 04:18] LABS: INTERNATIONAL NORMALIZED RATIO 1.1 RATIO; PROTHROMBIN TIME - PATIENT 10.8 SEC (9.8-11.6)
[2017-09-28 04:38] LABS: ALBUMIN 3.1 GM/DL (3.4-5.0); CALCIUM 7.2 MG/DL (8.5-10.1); CREATININE 0.57 MG/DL (0.50-1.00); MAGNESIUM 1.9 MG/DL (1.5-2.5); PHOSPHORUS 2.9 MG/DL (2.5-4.9); TOTAL BILIRUBIN ADULT 0.2 MG/DL (0.2-1.0); TOTAL PROTEIN 6.7 GM/DL (6.4-8.2)
[2017-09-28 04:43] LABS: CALCIUM-PROTEIN CORRECTED 7.4 MG/DL (8.5-10.1)
[2017-09-28] MEDS ORDERED: SUFentanil INJ 250 MCG/5 ML AMP ONE (07:31)
[2017-09-28] MEDS ORDERED: ACETAMINOPHEN 1000 MG/100 ML 100 ML IV ONE (07:31)
[2017-09-28] MEDS ORDERED: PROPOFOL 500 MG/50 ML INJ 150 ML ONE (07:32)
[2017-09-28] MEDS ORDERED: ARTIFICIAL TEARS OPTH OINT 3.5 APPLIC/3.5 GM TUBO ONE (07:32)
[2017-09-28] MEDS ORDERED: VANCOMYCIN HCL 1000 MG VIAL ONE ×3 (07:40→08:37)
[2017-09-28] MEDS ORDERED: THROMBIN (TOPICAL) 5,000 UNIT VIAL ONE ×2 (07:40→12:38)
[2017-09-28] MEDS ORDERED: GELFOAM SIZE 100 ONE (07:41)
[2017-09-28] MEDS ORDERED: BUPIVACAINE/EPINEPHRINE 0.5% PF 30 ML VIAL ONE (07:41)
[2017-09-28] MEDS: INSULIN NovoLIN REGULAR SUPPLEMENTAL SCALE SQ SCH ×4 (08:00→22:02)
[2017-09-28] MEDS ORDERED: APREPITANT 40 MG CAP ONE (08:27)
[2017-09-28] MEDS ORDERED: FAMOTIDINE 20 MG/2 ML VIAL ONE (08:28)
[2017-09-28] MEDS ORDERED: SODIUM CHLOR 0.9% 250 ML INJ 250 ML ONE (08:38)
[2017-09-28] MEDS: FAMOTIDINE 20 MG/2 ML VIAL IV PUSH SCH ×2 (09:00→21:08)
--- NOTE | 2017-09-28 09:42 | EKG ---
Date Performed: 09/27/2017 Time Performed: 06:48:24 PTAGE: 66 years EKG: Sinus rhythm . Inferior T wave changes are nonspecific Borderline ECG NO PREVIOUS TRACING DOCTOR: Alex Hendrix Interpretating Date/Time 09/28/2017 09:39:03
--- NOTE | 2017-09-28 09:59 | HHI.CCPN ---
Subjective Remarks/Hospital Course 70 years old female with a history of spinal stenosis, had an episode of syncope and fall with unknown mechanism of fall. Patient has abrasions to both knees. The patient has weakness in upper extremities and strange feeling in both hands. Patient also had incontinence en route as well as blood pressure of 80/40 and bradycardia 54 bpm which is improved to a blood pressure of 95/50 at presentation and heart rate of 65. Patient denies having headache but does note some neck pain is on a backboard in a c-collar with strict spinal precautions, patient has full feeling and no apparent weakness of her lower extremities. The CT of the C-spine shows prominent ossification of the posterior longitudinal ligament at C3-5 and C7-T2 with moderate bony central canal narrowing at C4 level. MRI of C and thoracic spine pending 09/28: Ready for OR today. Airway widely patent, breathing comfortably. Objective Vital Signs Date Time Temp Pulse Resp B/P (MAP) Pulse Ox O2 Delivery O2 Flow Rate FiO2 09/28/17 08:45 69 16 142/66 (91) 98 09/28/17 08:20 Nasal Cannula 3 09/28/17 08:20 97.9 09/27/17 03:59 21 Intake and Output 09/28/17 09/28/17 09/29/17 08:00 16:00 00:00 Intake Total 480 ml Output Total 1950 ml 400 ml Balance -1470 ml -400 ml Result Diagram: 09/28/17 0325 09/28/17 0325 Objective Remarks GENERAL: Well-nourished, well-developed patient. SKIN: Warm and dry. HEAD: Normocephalic. EYES: No scleral icterus. No injection or drainage. NECK: Supple, trachea midline. No JVD or lymphadenopathy. CARDIOVASCULAR: Regular rate and rhythm without murmurs, gallops, or rubs. RESPIRATORY: Breath sounds equal bilaterally. No accessory muscle use. GASTROINTESTINAL: Abdomen soft, non-tender, nondistended. MUSCULOSKELETAL: No cyanosis, or edema. BACK: Nontender without obvious deformity. NEURO EXAM: Awake and alert. Bilateral upper extremity 2/5 weakness, decreased sensation, some hyperesthesia/paresthesia noted. Bilateral lower extremities positive strength 4+/5. A/P Assessment and Plan Spinal cord injury - Severe C-spine stenosis as a underlying condition - Hyperextension injury - Decadron per neurosurgery request - C collar - MRI pending - MAP goal above 85 - PT and OT eval and treat as tolerated - Neurosurgical planning cervical decompression and reconstruction Hypotension - Leukopenia - Blood cultures/urine cultures - Antibiotics if indicated - Aggressive IV fluid hydration Syncope - Series of troponins - Telemetry - 2-D echo - Ultrasound carotids DVT GI prophylaxis - Teds SCDs - Lovenox - Pepcid Overall impression: Central cord syndrome following injury. Respiratory and hemodynamic function normal. Jim Barriga MD Sep 28, 2017 09:59
[2017-09-28] MEDS ORDERED: NEOSTIGMINE 5 MG/5 ML SYRINGE IV PUSH ONE (12:00)
[2017-09-28] MEDS ORDERED: PHENYLEPHRINE HCL 10 MG/ML VIAL IV ONE (12:00)
[2017-09-28] MEDS ORDERED: PROPOFOL 200 MG/20 ML AMP IV ONE (12:00)
[2017-09-28] MEDS ORDERED: ePHEDrine/NS 25 MG/5 ML SYRINGE IV ONE (12:00)
[2017-09-28] MEDS ORDERED: LACTATED RINGER'S 1000 ML INJ 2,000 ML IV ONE (12:00)
[2017-09-28] MEDS ORDERED: ROCURONIUM INJ 50 MG/5 ML SYRINGE IV PUSH ONE (12:00)
[2017-09-28] MEDS ORDERED: PHENYLEPH/NS 1000 MCG/10 ML SYR IV ONE (12:00)
[2017-09-28] MEDS ORDERED: DEXAMETHASONE SOD PHOS 4 MG/ML VIAL IV ONE (12:00)
[2017-09-28] MEDS ORDERED: GLYCOPYRROLATE 1 MG/5 ML SYRINGE IV PUSH ONE (12:00)
[2017-09-28] MEDS ORDERED: ONDANSETRON HCL 4 MG/2 ML VIAL IV ONE (12:00)
[2017-09-28] MEDS ORDERED: LIDOCAINE HCL 1% PF 5 ML SYRINGE OTHER ONE (12:00)
[2017-09-28] MEDS ORDERED: NS 500 ML (EXCEL BAG) INJ 500 ML IV ONE (12:00)
[2017-09-28] MEDS ORDERED: SUGAMMADEX SODIUM 200 MG/2 ML VIAL IV PUSH ONE (13:43)
[2017-09-28] MEDS ORDERED: DO NOT ADM ANY ANTICOAGULANT DRUGS PRN (13:51)
[2017-09-28] MEDS ORDERED: BISACODYL 10 MG SUPP RECTAL PRN (14:00)
[2017-09-28] MEDS ORDERED: RESP: ALBUTEROL 2.5 MG/3 ML NEB (PRN) NEB (14:00)
[2017-09-28] MEDS ORDERED: MENTHOL LOZENGE BUCCAL PRN (14:00)
[2017-09-28] MEDS ORDERED: LABETALOL HCL 100 MG/20 ML VIAL IV PUSH PRN (14:00)
[2017-09-28] MEDS ORDERED: SENNOSIDES 8.6 MG TAB PO PRN (14:00)
[2017-09-28] MEDS ORDERED: cloNIDine HCL 0.1 MG TAB PO PRN (14:00)
[2017-09-28] MEDS ORDERED: ALUMINUM/MAGNESIUM/SIMETH 30 ML CUP PO PRN (14:00)
[2017-09-28] MEDS ORDERED: ACETAMINOPHEN/HYDROcodone 325 MG/10 MG TAB PO PRN ×2 (14:00)
[2017-09-28] MEDS ORDERED: HYDROmorphone HCL PF 2 MG/ML VIAL IV PRN (14:00)
[2017-09-28] MEDS ORDERED: MAGNESIUM HYDROXIDE SUSP 30 ML CUP PO PRN (14:00)
[2017-09-28] MEDS ORDERED: PROMETHAZINE INJ 25 MG/ML VIAL IM PRN (14:00)
[2017-09-28] MEDS ORDERED: SODIUM CHLORIDE 0.9% FLUSH 10 ML FLUSH IV FLUSH PRN (14:00)
--- NOTE | 2017-09-28 14:02 | RADRPT ---
EXAM DATE/TIME: 09/28/2017 09:11 [facility] COMPARISON: No previous studies available for comparison. INDICATIONS : Post-op C3-C4, C4-C5, C5-C6 posterior cervical fusion. MEDICAL HISTORY : None. SURGICAL HISTORY : None. ENCOUNTER: Subsequent ACUITY: 2 days PAIN SCORE: Non-responsive. LOCATION: neck FINDINGS: There is posterior fusion from C3-C6 with multilevel laminectomy. The vertebral bodies are normal in alignment on the lateral view. CONCLUSION: 1. Postsurgical changes as above. Alex Donis MD on September 28, 2017 at 13:51 Board Certified Radiologist. This report was verified electronically.
--- NOTE | 2017-09-28 14:03 | RADRPT ---
EXAM DATE/TIME: 09/28/2017 09:11 [facility] COMPARISON: No previous studies available for comparison. INDICATIONS : C3-C4, C4-C5, C5-C6 posterior cervical fusion. Level localization. MEDICAL HISTORY : None. SURGICAL HISTORY : None. ENCOUNTER: Subsequent ACUITY: 2 days PAIN SCORE: Non-responsive. LOCATION: neck FINDINGS: FINDINGS: Single lateral view of the spine demonstrates the spine to be in anatomic alignment. A probe is in pl griselda at the C3 level. CONCLUSION: 1. Postsurgical changes as above. Alex Donis MD on September 28, 2017 at 14:02 Board Certified Radiologist. This report was verified electronically.
[2017-09-28] MEDS ORDERED: MIDAZOLAM HCL 2 MG/2 ML VIAL ONE (14:07)
--- NOTE | 2017-09-28 15:49 | PD.OP ---
Niko Iyer MD Operative Report Date of Surgery: Sep 28, 2017 Preoperative Diagnosis: Cervical central spinal cord injury with C3-6 stenosis with spinal cord compression and contusion Postoperative Diagnosis: Same Procedure: Posterior cervical C3-6 autograft fusion; C3, C4, C5 and C6 decompressive laminectomies; posterior C3-6 lateral mass fixation; microsurgical technique Anesthesia: Gen. endotracheal by Christine desai Surgeon: Emil Chinchilla M.D. Wool Sacker(s): Madeleine Olivo Operation and Findings: Following administration of general endotracheal anesthesia with the neck maintained in neutral position in a Linn J collar, patient had a Goldman catheter placed with sequential compression devices. A gram of vancomycin was administered intravenously. She was then turned on a prone position on a Tyrell table and the head secured in a horseshoe headrest and all pressure points adequately padded. Posterior cervical region was then shaved and prepped with Betadine solution and ChloraPrep. Sterile draping undertaken along with Ioban and a midline incision extending from the C3 to the C6 was then made after infiltrating the skin was 0.5% Marcaine with epinephrine solution. Intraoperative fluoroscopy used for level confirmation. Retractors were used for exposure after the fascia incised and the muscular attachments to the spinous process and lamina along with the facets detached from C3 to C6 levels bilaterally. Further dissection was undertaken using microtechnique with microscope magnification. I drilled out the lamina at the junction of the facets from C3 to C6 levels bilaterally and an en bloc laminectomy undertaken for decompression the spinal canal. The inferior portion of C2 and superior portion of the C7 lamina were also undercut to decompress the spinal canal circumferentially. The ligamentum flavum were also resected with Kerrisons. The facets on both sides decorticated with a curette. Subsequently lateral mass fixation undertaken with the [employer] screws with entry point of the midportion of the facet bilaterally from C3 to C6 levels. The screw trajectory was lateral and superiorly guided with fluoroscopy also. Screws were then connected with a marisol and locked in place with caps. The construct appeared to be secure this point in AP and lateral fossae confirmed good placement and alignment. The good decorticated facets were then packed from C3 to C6 levels with the local autograft morselized bone for posterolateral fusion. The area was then copiously irrigated with antibody solution laminectomy edges and hemostasis achieved with bone wax along with Gelfoam and thrombin. Retractors removed and the muscle and fascia using 2-0 Vicryl interrupted sutures and 3-0 Vicryl subcuticular stitch also placed in an interrupted fashion and final skin closure was with jamie. A sterile dressing was applied and the neck immobilized in a Linn J collar. He was then turned in supine position and extubated and taken to recovery room. There were no intraoperative complications and all sponge and needle count was correct at the end the procedure. Estimated blood loss about 100 cc. Patient did undergo intraoperative neurologic monitoring which remained stable throughout surgery. Emil Chinchilla MD Sep 28, 2017 15:49
[2017-09-28] MEDS ORDERED: NALOXONE HCL 0.4 MG/ML AMP ONE (15:53)
--- NOTE | 2017-09-28 17:38 | ECHRPT ---
Indication: cva/tia CONCLUSIONS Normal left ventricular size. The left ventricular systolic function is low normal with an estimated ejection fraction in the rang e of 50- 55%. [id number] mitral valve regurgitation. There is trace tricuspid valve regurgitation. The pulmonary valve is not well visualized. technically difficult study BP: / HR: Rhythm: MEASUREMENTS (Male / Female) Normal Values Technical Quality:Technically difficult study 2D ECHO LV Diastolic Diameter PLAX 3.9 cm 4.2 - 5.9 / 3.9 - 5.3 cm LV Systolic Diameter PLAX 3.1 cm IVS Diastolic Thickness 1.1 cm 0.6 - 1.0 / 0.6 - 0.9 cm LVPW Diastolic Thickness 1.2 cm 0.6 - 1.0 / 0.6 - 0.9 cm LV Relative Wall Thickness 0.6 RV Internal Dim ED PLAX 2.3 cm M-MODE Aortic Root Diameter MM 2.7 cm LA Systolic Diameter MM 3.6 cm LA Ao Ratio MM 1.3 AV Cusp Separation MM 2.0 cm DOPPLER Mitral E Point Velocity 67.1 cm/s Mitral A Point Velocity 61.2 cm/s Mitral E to A Ratio 1.1 LV E' Lateral Velocity 7.4 cm/s Mitral E to LV E' Lateral Ratio 9.1 LV E' Septal Velocity 9.2 cm/s Mitral E to LV E' Septal Ratio 7.3 FINDINGS LEFT VENTRICLE Normal left ventricular size. The left ventricular systolic function is low normal with an estimated ejection fraction in the rang e of 50- 55%. RIGHT VENTRICLE Normal right ventricular size and systolic function. LEFT ATRIUM The left atrial size is normal. RIGHT ATRIUM The right atrial size is normal. ATRIAL SEPTUM Normal atrial septal thickness without atrial level shunting by limited color doppler interrogation. AORTA The aortic root and proximal ascending aorta are normal in size on limited imaging. MITRAL VALVE Structurally normal mitral valve. [id number] mitral valve regurgitation. AORTIC VALVE Trileaflet aortic valve. No aortic valve stenosis or regurgitation. TRICUSPID VALVE Structurally normal tricuspid valve. There is trace tricuspid valve regurgitation. PULMONARY VALVE The pulmonary valve is not well visualized. VESSELS The inferior vena cava is normal in size. PERICARDIUM No pericardial effusion. Dixon Byrd MD, [facility], [facility] [place] (Electronically Signed) Final Date:28 September 2017 17:37
[2017-09-28] MEDS: SODIUM CHLORIDE 0.9% FLUSH 10 ML FLUSH IV FLUSH SCH (21:08)
[2017-09-28] MEDS: ACETAMINOPHEN 325MG/HYDROcodone 7.5MG/15ML UDC PO PRN (21:09)
[2017-09-28] MEDS: DOCUSATE SODIUM 50 MG/SENNA 8.6 MG TAB PO SCH (21:14)
[2017-09-29] VITALS (13 sets, daily range): BP systolic 109–168; BP diastolic 48–66; PULSE 57–74; RESP 9–14; TEMP 99.7–101.1; O2SAT 92–100
[2017-09-29] MEDS: CHLORHEXIDINE GLUCONATE 2 % 1 PACK (2 CLOTHS) TOP SCH (00:47)
[2017-09-29] MEDS: NS + KCL 20 MEQ INJ 1,000 ML IV SCH ×2 (02:25→08:04)
[2017-09-29] MEDS: ACETAMINOPHEN 325MG/HYDROcodone 7.5MG/15ML UDC PO PRN ×3 (03:57→17:23)
[2017-09-29 04:17] LABS: AUTOMATED NEUTROPHIL # 13.4 TH/MM3 (1.8-7.7); BASOPHIL % 0.1 % (0.0-2.0); HEMATOCRIT 29.7 % (35.0-46.0); HEMOGLOBIN 10.7 GM/DL (11.6-15.3); LYMPH % 6.5 % (9.0-44.0); MEAN CELL VOLUME 93.8 FL (80.0-100.0); MEAN CORPUSCULAR HEMOGLOBIN 33.8 PG (27.0-34.0); MONO % 5.6 % (0.0-8.0); MONOCYTE # 0.9 TH/MM3 (0-0.9); NEUT % 87.8 % (16.0-70.0); PLATELET COUNT 220 TH/MM3 (150-450); RED BLOOD COUNT 3.17 MIL/MM3 (4.00-5.30); RED CELL DISTRIBUTION WIDTH 12.1 % (11.6-17.2); WHITE BLOOD COUNT 15.3 TH/MM3 (4.0-11.0)
[2017-09-29 04:45] LABS: BICARBONATE 27.3 MEQ/L (21.0-32.0); CALCIUM 7.8 MG/DL (8.5-10.1); CREATININE 0.69 MG/DL (0.50-1.00); MAGNESIUM 2.2 MG/DL (1.5-2.5)
[2017-09-29] MEDS: DEXAMETHASONE SOD PHOS 4 MG/ML VIAL IV PUSH SCH (06:14)
[2017-09-29] MEDS: PHENYLEPHRINE INJ 40 MG in DEXTROSE 5% IN WATE 500 ML INJ 496 ML IV PRN ×2 (06:16)
[2017-09-29] MEDS: CYCLOBENZAPRINE HCL 10 MG TAB PO PRN (06:47)
[2017-09-29] MEDS: HYDROmorphone HCL PF 2 MG/ML VIAL IV PRN ×2 (06:52→13:36)
[2017-09-29 07:36] LABS: BANDS 18 % (0-6); LYMPHOCYTES 9 % (9-44); MONOCYTES 1 % (0-8); NEUTROPHIL # MANUAL DIFF 13.8 TH/MM3 (1.8-7.7); POLYS (SEG NEUTROPHILS) 72 % (16-70)
--- NOTE | 2017-09-29 07:55 | HHI.CCPN ---
Subjective Remarks/Hospital Course 70 years old female with a history of spinal stenosis, had an episode of syncope and fall with unknown mechanism of fall. Patient has abrasions to both knees. The patient has weakness in upper extremities and strange feeling in both hands. Patient also had incontinence en route as well as blood pressure of 80/40 and bradycardia 54 bpm which is improved to a blood pressure of 95/50 at presentation and heart rate of 65. Patient denies having headache but does note some neck pain is on a backboard in a c-collar with strict spinal precautions, patient has full feeling and no apparent weakness of her lower extremities. The CT of the C-spine shows prominent ossification of the posterior longitudinal ligament at C3-5 and C7-T2 with moderate bony central canal narrowing at C4 level. MRI of C and thoracic spine pending 09/28: Ready for OR today. Airway widely patent, breathing comfortably. 09/29: S/P cervical spine decompression and reconstruction. Airway widely patent. Glucose moderately elevated 160s, will resolve after steroids tapered off. Will reduce MAP support to 75 mm Hg - beneficial effect largely during first 48 hours after injury only. Objective Vital Signs Date Time Temp Pulse Resp B/P (MAP) Pulse Ox O2 Delivery O2 Flow Rate FiO2 09/29/17 06:16 62 144/55 09/29/17 04:00 99.7 10 95 09/28/17 19:00 Room Air 09/28/17 15:47 2.00 09/27/17 03:59 21 Intake and Output 09/29/17 09/29/17 09/30/17 08:00 16:00 00:00 Intake Total 480 ml Output Total 2350 ml Balance -1870 ml Result Diagram: 09/29/17 0340 09/29/17 0340 Objective Remarks GENERAL: Well-nourished, well-developed patient. SKIN: Warm and dry. HEAD: Normocephalic. EYES: No scleral icterus. No injection or drainage. NECK: Supple, trachea midline. Airway widely patent. CARDIOVASCULAR: Regular rate and rhythm without murmurs, gallops, or rubs. No JVD. RESPIRATORY: Breath sounds equal bilaterally. No accessory muscle use. GASTROINTESTINAL: Abdomen soft, non-tender, nondistended. BS active. MUSCULOSKELETAL: No cyanosis, or edema. Well perfused. NEURO EXAM: Awake and alert. Bilateral upper extremity 2-3/5 weakness, decreased sensation, some hyperesthesia/paresthesia noted. Bilateral lower extremities positive strength 4+/5. A/P Assessment and Plan Spinal cord injury - Severe C-spine stenosis as a underlying condition - Hyperextension injury - Decadron per neurosurgery request - C collar - MRI pending - MAP goal above 85 - PT and OT eval and treat as tolerated - Neurosurgical completed cervical decompression and reconstruction 09/28/ Hypotension - Leukopenia - Blood cultures/urine cultures - Antibiotics if indicated - Aggressive IV fluid hydration - Resolved Syncope - Series of troponins - Telemetry - 2-D echo - Ultrasound carotids Hyperglycemia - Start low SSI DVT GI prophylaxis - Teds SCDs - Lovenox - Pepcid Overall impression: Central cord syndrome following injury. Respiratory and hemodynamic function normal. Breathing comfortably following spine surgery. Jim Barriga MD Sep 29, 2017 07:55
[2017-09-29] MEDS ORDERED: GLUCAGON 1 MG/ML VIAL OTHER PRN (08:00)
[2017-09-29] MEDS: INSULIN ASPART SUPPLEMENTAL SCALE SQ SCH ×4 (08:00→21:00)
[2017-09-29] MEDS ORDERED: PHENYLEPHRINE INJ 40 MG in DEXTROSE 5% IN WATE 500 ML INJ 496 ML IV PRN ×2 (08:00)
[2017-09-29] MEDS ORDERED: DEXTROSE 50% IN WATER 50 ML VIAL(D50) IV PUSH PRN (08:00)
[2017-09-29] MEDS: SODIUM CHLORIDE 0.9% FLUSH 10 ML FLUSH IV FLUSH SCH ×2 (08:03→19:54)
[2017-09-29] MEDS: INSULIN NovoLIN REGULAR SUPPLEMENTAL SCALE SQ SCH (08:14)
[2017-09-29] MEDS: DOCUSATE SODIUM 50 MG/SENNA 8.6 MG TAB PO SCH ×2 (08:14→19:53)
[2017-09-29] MEDS: FAMOTIDINE 20 MG/2 ML VIAL IV PUSH SCH ×2 (08:14→19:54)
--- NOTE | 2017-09-29 09:23 | HHI.NSPN ---
(Simone Zavaleta) History Chief Complaint: Severe weakness/paralysis s/p SCI. (Simone Zavaleta) Interval History This is a 66 year-old female who this morning had a syncopal episode while she was in the bathroom urinating. She felt light-headed and dizzy prior to this and fell and lost consciousness. The next thing she remembers waking up with her screaming at her and slapping her face and she was unable to move her arms or legs with loss of complete sensation in the whole body. She also relates that she was having a difficult time exchanging air and the relates that she was very pale. Subsequently, her sensation started to improve more so in the legs than arms along with movement, although she still has numbness in her upper extremities and inability to move her upper extremities, but the lower extremity strength is improving. She was bradycardic and hypotensive en route which has improved since her admission, but she has also been placed on phenylephrine IV drip to provide hemodynamic support. She relates that she has had two syncopal episodes, one a couple years ago and one as a child, although does not relate having had any workup for this. She denies any chest pain or shortness of breath. She had a lumbar laminectomy by Dr. 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 She relate the history of cervical stenosis in the past, but this was treated conservatively. Trauma workup on presentation this morning as a trauma alert included a CT scan of the head which was negative for any intracranial abnormality. CT of the cervical spine reveals significant ossification of the posterior longitudinal ligament extending from the C3-C5 levels along with some C7-T2 ossification. Also, there is significant stenosis in the cervical spine from this. No fractures are noted. She subsequently has also had an MRI scan of the cervical and thoracic spine which reveals severe stenosis from C3-C7 levels with cord compression and cord contusion injury at the C4-5 level. Pelvis x-rays are negative. She has been admitted to the intensive care unit for close neurologic monitoring and hemodynamic support with IV fluids and vasopressors on board. She also initially received Decadron. 09/29/17: Pt underwent a posterior cervical C3-6 autograft fusion; C3, C4, C5 and C6 decompressive laminectomies; posterior C3-6 lateral mass fixation on . She complains of neck pain but doing well. She states some pain in shoulders. She denies radiculopathy in UEs. weakness in UEs more than LEs consistent with central spinal cord injury. (Simone Zavaleta) Review of Systems General: Negative for: fever, chills, insomnia Respiratory: Negative for: shortness of breath, cough, sputum Cardiovascular: Negative for: chest pain Gastrointestinal: Negative for: nausea, vomitting, diarrhea, constipation ( Simone Zavaleta) Exam Results Vital Signs Date Time Temp Pulse Resp B/P (MAP) Pulse Ox O2 Delivery O2 Flow Rate FiO2 09/29/17 08:00 64 09/29/17 08:00 99.7 9 137/55 (82) 94 09/29/17 07:00 Room Air 09/28/17 15:47 2.00 09/27/17 03:59 21 Intake and Output 09/29/17 09/29/17 09/30/17 08:00 16:00 00:00 Intake Total 480 ml 100 ml Output Total 2350 ml Balance -1870 ml 100 ml (Simone Zavaleta) Physical Examination General: Pt awake and alert in bed in NAD with stable vital signs. Eyes: Pupils equal. Sclera anicteric. Resp: CTA bilaterally. Heart: NSR no murmurs Abd: soft positive bs Skin: Pt log rolled by nurses when I was present. Incision clean and dry with jamie in place. Muscle: Moves LUE more than RUE. RUE deltoid, biceps, triceps, and HI 0/5. LUE deltoid 1/5, Biceps and triceps 2/5, HI 1/5. Iliopsoas weakness 4/5, knee extension 4-/5, plantar and dorsiflexion 4-/5. [place] cervical collar intact. Neuro: Pt awake and alert. Follows commands well. Speech clear and appropriate. Pt reports sensation intact to light touch in UEs although appears diminished on exam. (Simone Zavaleta) Lab, Micro, Other Results Last Impressions Cervical Spine X-Ray 09/28/17 0000 Signed Impressions: Service Date/Time: September 09:11 - CONCLUSION: 1. Postsurgical changes as above. Alex Donis MD Head CT [id number]/27/17401 Signed Impressions: Service Date/Time: Wednesday, September 27, 2017 04:13 - CONCLUSION: 1. No acute intracranial abnormality. Keith Gutierres MD Chest X-Ray [id number]/27/17401 Signed Impressions: Service Date/Time: Wednesday, September 27, 2017 04:00 - CONCLUSION: 1. Negative portable chest status post trauma. Keith Gutierres MD Cervical Spine CT [id number]/27/17401 Signed Impressions: Service Date/Time: Wednesday, September 27, 2017 04:13 - CONCLUSION: 1. No acute fracture or subluxation. 2. 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 Keith Gutierres MD Thoracic Spine MRI 09/27/17 Signed Impressions: Service Date/Time: Wednesday, September 27, 2017 05:00 - CONCLUSION: 1. Degenerative spondylosis of the mid thoracic spine most prominently at T6-9. There is effacement of the left anterior lateral recess at T6-7. Otherwise, no significant central canal stenosis or cord signal abnormality. 1. Keith Gutierres MD Pelvis X-Ray 09/27/17 0000 Signed Impressions: Service Date/Time: Wednesday, September 27, 2017 04:00 - CONCLUSION: 1. No acute fracture or dislocation. Keith Gutierres MD Lumbar Spine MRI 09/27/17 0000 Signed Impressions: Service Date/Time: Wednesday, September 27, 2017 05:00 - CONCLUSION: 1. Multilevel degenerative spondylosis of the lumbar spine most prominently at L3- 4 with moderate to severe central canal narrowing to 6 mm. 2. Please see above for detailed description of each level. Keith Gutierres MD Cervical Spine MRI 09/27/17 0000 Signed Impressions: Service Date/Time: Wednesday, September 27, 2017 05:00 - CONCLUSION: 1. No acute fracture or subluxation. 2. Prominent posterior longitudinal ligament calcifications with resultant severe central canal narrowing at C3-6. There is flattening of cervical cord at these levels with very subtle cord signal abnormality at C4-5. Keith Gutierres MD Carotid Artery Ultrasound 09/27/17 0000 Signed Impressions: Service Date/Time: Wednesday, September 27, 2017 08:41 - CONCLUSION: No evidence of flow-limiting carotid stenosis. Quique Goodson MD Laboratory Tests Test 09/29/17 03:40 White Blood Count 15.3 TH/MM3 Red Blood Count 3.17 MIL/MM3 Hemoglobin 10.7 GM/DL Hematocrit 29.7 % Mean Corpuscular Volume 93.8 FL Mean Corpuscular Hemoglobin 33.8 PG Mean Corpuscular Hemoglobin Concent 36.0 % Red Cell Distribution Width 12.1 % Platelet Count 220 TH/MM3 Mean Platelet Volume 7.0 FL Neutrophils (%) (Auto) 87.8 % Lymphocytes (%) (Auto) 6.5 % Monocytes (%) (Auto) 5.6 % Eosinophils (%) (Auto) 0.0 % Basophils (%) (Auto) 0.1 % Neutrophils # (Auto) 13.4 TH/MM3 Lymphocytes # (Auto) 1.0 TH/MM3 Monocytes # (Auto) 0.9 TH/MM3 Eosinophils # (Auto) 0.0 TH/MM3 Basophils # (Auto) 0.0 TH/MM3 CBC Comment AUTO DIFF Differential Total Cells Counted 100 Neutrophils % (Manual) 72 % Band Neutrophils % 18 % Lymphocytes % 9 % Monocytes % 1 % Neutrophils # (Manual) 13.8 TH/MM3 Differential Comment FINAL DIFF MANUAL Platelet Estimate NORMAL Platelet Morphology Comment NORMAL Blood Urea Nitrogen 12 MG/DL Creatinine 0.69 MG/DL Random Glucose 163 MG/DL Calcium Level 7.8 MG/DL Magnesium Level 2.2 MG/DL Sodium Level 137 MEQ/L Potassium Level 4.6 MEQ/L Chloride Level 105 MEQ/L Carbon Dioxide Level 27.3 MEQ/L Anion Gap 5 MEQ/L Estimat Glomerular Filtration Rate 85 ML/MIN 09/29/17 09/29/17 09/30/17 15:00 23:00 07:00 Intake Total 100 ml Balance 100 ml IV Total 100 ml (Simone Zavaleta) Medical Decision Making Impression and Plan A: 1. 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 She has multi-level cervical stenosis in particular from C3-C6 level predominantly from osteophyte posterior longitudinal ligament along with disk osteophyte complexes with spinal cord compression and contusion. 2. Spinal shock with associated hypotension and bradycardia on vasopressor support. 3. Diabetes mellitus. PLAN: Continue with cervical collar Continue with Incision care jamie need to be removed 12 days post op. Continue with Decadron Continue with PT and OT. Pt will need extensive rehab. (Simone Zavaleta) Attending Statement The exam, history, and the medical decision-making described in the above note were completed with the assistance of the mid-level provider. I reviewed and agree with the findings presented. I attest that I had a [id number] encounter with the patient on the same day, and personally performed and documented my assessment and findings in the medical record. (Emil Chinchilla MD) Simone Zavaleta Sep 29, 2017 09:23 Emil Chinchilla MD Sep 29, 2017 18:49
[2017-09-29] MEDS: ACETAMINOPHEN 325 MG TAB PO PRN (18:18)
[2017-09-30] VITALS (14 sets, daily range): BP systolic 107–127; BP diastolic 53–60; PULSE 58–72; RESP 10–16; TEMP 99.5–100.4; O2SAT 94–97
[2017-09-30] MEDS: NS + KCL 20 MEQ INJ 1,000 ML IV SCH ×2 (01:32→14:27)
[2017-09-30] MEDS: ACETAMINOPHEN 325MG/HYDROcodone 7.5MG/15ML UDC PO PRN ×4 (01:36→22:14)
[2017-09-30] MEDS: CHLORHEXIDINE GLUCONATE 2 % 1 PACK (2 CLOTHS) TOP SCH (04:00)
[2017-09-30] MEDS: INSULIN ASPART SUPPLEMENTAL SCALE SQ SCH ×4 (08:00→20:53)
[2017-09-30] MEDS: HYDROmorphone HCL PF 2 MG/ML VIAL IV PRN ×4 (08:48→23:24)
[2017-09-30] MEDS: DOCUSATE SODIUM 50 MG/SENNA 8.6 MG TAB PO SCH ×2 (08:48→19:58)
[2017-09-30] MEDS: SODIUM CHLORIDE 0.9% FLUSH 10 ML FLUSH IV FLUSH SCH ×2 (08:49→19:58)
[2017-09-30] MEDS: FAMOTIDINE 20 MG/2 ML VIAL IV PUSH SCH ×2 (08:49→19:58)
--- NOTE | 2017-09-30 10:02 | HHI.NSPN ---
(Tiffanie Cruz) Note Status Status: Progress Note (Tiffanie Cruz) Interval History Interval History This is a 66 year-old female who this morning had a syncopal episode while she was in the bathroom urinating. She felt light-headed and dizzy prior to this and fell and lost consciousness. The next thing she remembers waking up with her screaming at her and slapping her face and she was unable to move her arms or legs with loss of complete sensation in the whole body. She also relates that she was having a difficult time exchanging air and the relates that she was very pale. Subsequently, her sensation started to improve more so in the legs than arms along with movement, although she still has numbness in her upper extremities and inability to move her upper extremities, but the lower extremity strength is improving. She was bradycardic and hypotensive en route which has improved since her admission, but she has also been placed on phenylephrine IV drip to provide hemodynamic support. She relates that she has had two syncopal episodes, one a couple years ago and one as a child, although does not relate having had any workup for this. She denies any chest pain or shortness of breath. She had a lumbar laminectomy by Dr. 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 She relate the history of cervical stenosis in the past, but this was treated conservatively. Trauma workup on presentation this morning as a trauma alert included a CT scan of the head which was negative for any intracranial abnormality. CT of the cervical spine reveals significant ossification of the posterior longitudinal ligament extending from the C3-C5 levels along with some C7-T2 ossification. Also, there is significant stenosis in the cervical spine from this. No fractures are noted. She subsequently has also had an MRI scan of the cervical and thoracic spine which reveals severe stenosis from C3-C7 levels with cord compression and cord contusion injury at the C4-5 level. Pelvis x-rays are negative. She has been admitted to the intensive care unit for close neurologic monitoring and hemodynamic support with IV fluids and vasopressors on board. She also initially received Decadron. 3/2/18: Pt underwent a posterior cervical C3-6 autograft fusion; C3, C4, C5 and C6 decompressive laminectomies; posterior C3-6 lateral mass fixation on . She complains of neck pain but doing well. She states some pain in shoulders. She denies radiculopathy in UEs. weakness in UEs more than LEs consistent with central spinal cord injury. 09/30/17: doing well, no acute events overnight, stable weakness in extremities. (Tiffanie Cruz) Labs, Micro, & Vital Signs Results Date Time Temp Pulse Resp B/P (MAP) Pulse Ox O2 Delivery O2 Flow Rate FiO2 09/30/17 09:46 96 Nasal Cannula 2.00 09/30/17 09:34 7 09/30/17 08:35 13 09/30/17 06:00 58 09/30/17 04:00 58 09/30/17 04:00 100.0 58 12 113/57 (75) 96 09/30/17 02:00 62 09/30/17 00:00 99.5 63 11 109/53 (71) 97 09/30/17 00:00 63 09/29/17 22:00 68 09/29/17 21:19 96 Nasal Cannula 2.00 09/29/17 20:00 59 09/29/17 20:00 100.4 59 14 112/56 (74) 100 09/29/17 19:00 98 Room Air 09/29/17 18:00 74 09/29/17 18:00 101.1 64 11 109/55 (73) 100 09/29/17 16:00 71 09/29/17 14:00 57 09/29/17 12:00 60 09/29/17 12:00 100.2 58 10 112/55 (74) 98 09/29/17 10:00 71 Constitutional Vital Signs Date Time Temp Pulse Resp B/P (MAP) Pulse Ox O2 Delivery O2 Flow Rate FiO2 09/30/17 09:46 96 Nasal Cannula 2.00 09/30/17 09:34 7 09/30/17 08:35 13 09/30/17 06:00 58 09/30/17 04:00 58 09/30/17 04:00 100.0 58 12 113/57 (75) 96 09/30/17 02:00 62 09/30/17 00:00 99.5 63 11 109/53 (71) 97 09/30/17 00:00 63 09/29/17 22:00 68 09/29/17 21:19 96 Nasal Cannula 2.00 09/29/17 20:00 59 09/29/17 20:00 100.4 59 14 112/56 (74) 100 09/29/17 19:00 98 Room Air 09/29/17 18:00 74 09/29/17 18:00 101.1 64 11 109/55 (73) 100 09/29/17 16:00 71 09/29/17 14:00 57 09/29/17 12:00 60 09/29/17 12:00 100.2 58 10 112/55 (74) 98 09/29/17 10:00 71 (Tiffanie Cruz) Review of Systems Constitutional: DENIES: Fever Neurologic: COMPLAINS OF: Localized weakness, Paresthesias (Tiffanie Cruz) Physical Exam General: Pt awake and alert in bed in NAD with stable vital signs. appears comfortable in bed. Eyes: Pupils equal. Sclera anicteric. Abd: soft positive bs Skin: Wound with clean and dry [place] in place. Muscle: Dense paraparesis in upper extremities, gross movements left upper extremity. Moves bilateral lower extremities 3-4/5 Neck: [place] cervical collar intact. Neuro: Pt awake and alert. Follows commands well. Speech clear and appropriate. (Tiffanie Cruz) Medications Current Medications Current Medications Medications (Trade) Dose Ordered Sig/Elmer Route PRN Reason Start Time Stop Time Status Last Admin Dose Admin Acetaminophen (Tylenol) 650 mg Q6H PRN PO FEVER >101F 09/27/17 05:30 09/29/17 18:18 Famotidine (Pepcid Inj) 20 mg Q12HR IV PUSH 09/27/17 09:00 09/30/17 08:49 Ondansetron HCl (Zofran Inj) 4 mg Q6H PRN IV PUSH NAUSEA OR VOMITING 09/27/17 05:30 Temazepam (Restoril) 15 mg HS PRN PO INSOMNIA 09/27/17 05:30 Albuterol/ Ipratropium (Duoneb Neb) 1 ampule Q2HR NEB PRN INH WHEEZING 09/27/17 05:30 09/29/17 21:14 Miscellaneous Information 1 [id number] XX 09/27/17 05:30 Chlorhexidine Gluconate (Chlorhexidine 2% Cloth) 3 pack Taper DAILY@04 TOP 09/28/17 04:00 09/24/18 03:59 Chlorhexidine Gluconate (Chlorhexidine 2% Cloth) 3 pack UNSCH PRN TOP HYGIENIC CARE 09/27/17 05:30 Lactulose (Lactulose Liq) 30 ml DAILY PRN PO SEVERE CONSITIPATION 09/27/17 05:30 Terbutaline Sulfate (Brethine Inj) 1 mg UNSCH PRN SQ For Extravasation 09/27/17 05:45 Potassium Chloride/Sodium Chloride 1,000 ml @ 75 mls/hr [id number] IV 09/27/17 10:15 09/30/17 01:32 Enoxaparin Sodium (Lovenox Inj) 40 mg Q24H SQ 10/01/17 09:00 Sodium Chloride (NS Flush) 2 ml UNSCH PRN IV FLUSH FLUSH AFTER USING IV ACCESS 09/28/17 14:00 Sodium Chloride (NS Flush) 2 ml BID IV FLUSH 09/28/17 21:00 09/30/17 08:49 Al Hydrox/Mg Hydrox/Simethicone (Mag-Al Plus Susp Liq) 30 ml Q6H PRN PO DYSPEPSIA 09/28/17 14:00 Promethazine HCl (Phenergan Inj) 25 mg Q4H PRN IM NAUSEA OR VOMITING 09/28/17 14:00 Cyclobenzaprine HCl (Flexeril) 10 mg Q8H PRN PO MUSCLE SPASM 09/28/17 14:00 09/29/17 06:47 Labetalol HCl (Trandate Inj) 10 mg Q1H PRN IV PUSH SYS BP GREATER THAN 170 MMHG 09/28/17 14:00 Clonidine (Catapres) 0.1 mg Q6H PRN PO SYS BP GREATER THAN 170 MMHG 09/28/17 14:00 Menthol (Muddy Akshat) 1 lozenge UNSCH PRN BUCCAL SORE THROAT 09/28/17 14:00 Zolpidem Tartrate (Ambien) 5 mg HS PRN PO INSOMNIA 09/28/17 14:00 Senna/Docusate Sodium (Mally-Colace) 1 tab BID PO 09/28/17 21:00 09/30/17 08:48 Magnesium Hydroxide (Milk Of Magnesia Liq) 30 ml Q12H PRN PO Mild constipation 09/28/17 14:00 Sennosides (Senokot) 17.2 mg Q12H PRN PO Moderate constipation 09/28/17 14:00 Bisacodyl (Dulcolax Supp) 10 mg DAILY PRN RECTAL SEVERE CONSITIPATION 09/28/17 14:00 Hydromorphone HCl (Dilaudid Pf Inj) 0.5 mg Q2H PRN IV breakthrough PAIN 6-10 09/28/17 18:00 09/30/17 08:48 Acetaminophen/ Hydrocodone Bitart (Hycet 325-7.5 Mg Liq) 15 ml Q6H PRN PO pain 5-10 09/28/17 17:15 09/30/17 07:03 Dextrose (D50w (Vial) Inj) 50 ml UNSCH PRN IV PUSH HYPOGLYCEMIA-SEE COMMENTS 09/29/17 08:00 Glucagon (Glucagon Inj) 1 mg UNSCH PRN OTHER HYPOGLYCEMIA-SEE COMMENTS 09/29/17 08:00 Insulin Aspart (NovoLOG SUPPLEMENTAL SCALE) 1 ACHS SLIDING SCALE SQ 09/29/17 08:00 09/29/17 12:43 Phenylephrine HCl 40 mg/Dextrose 500 ml @ 30 mls/hr TITRATE PRN IV Blood Pressure Management 09/29/17 08:00 (Tiffanie Cruz) Medical Decision Making MDM Remarks 66 y/o female 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 She has multi-level cervical stenosis in particular from C3-C6 level predominantly from osteophyte posterior longitudinal ligament along with disk osteophyte complexes with spinal cord compression and contusion. s/p posterior cervical C3-6 autograft fusion; C3, C4, C5 and C6 decompressive laminectomies; posterior C3-6 lateral mass fixation on 09/28/17 (Tiffanie Cruz) Plan Plan Remarks continue with cervical collar continue with incision care jamie need to be removed 12 days post op. continue with Decadron continue with PT and OT rehab efforts dw patient and family in room (Tiffanie Cruz) Attending Statement The exam, history, and the medical decision-making described in the above note were completed with the assistance of the mid-level provider. I reviewed and agree with the findings presented. I attest that I had a [id number] encounter with the patient on the same day, and personally performed and documented my assessment and findings in the medical record. (Ariel James MD) Tiffanie Cruz Sep 30, 2017 10:02 Ariel James MD Oct 02, 2017 12:33
--- NOTE | 2017-09-30 12:25 | RADRPT ---
EXAM DATE/TIME: 09/30/2017 11:38 [facility] COMPARISON: CHEST SINGLE AP, September 27, 2017, 4:00. INDICATIONS : Fever. MEDICAL HISTORY : None. SURGICAL HISTORY : None. ENCOUNTER: Subsequent ACUITY: 1 day PAIN SCORE: 0/10 LOCATION: Bilateral chest FINDINGS: A single view of the chest demonstrates the lungs to be symmetrically aerated without evidence of mas s, infiltrate or effusion. The cardiomediastinal contours are unremarkable. Osseous structures are intact. CONCLUSION: Normal examination. Guy Funes MD on September 30, 2017 at 12:24 Board Certified Radiologist. This report was verified electronically.
[2017-09-30 13:31] LABS: BILIRUBIN, URINE NEG (NEG); BLOOD, URINE NEG (NEG); GLUCOSE,URINE NEG (NEG); KETONE, URINE NEG (NEG); MUCUS URINE FEW /lpf (OCC); NITRITE,URINE NEG (NEG); PH, URINE 6.5 (5.0-8.5); URINE COLOR YELLOW (YELLW/STRAW); URINE LEUKOCYTE ESTERASE NEG (NEG)
[2017-09-30 15:32] LABS: AUTOMATED NEUTROPHIL # 5.2 TH/MM3 (1.8-7.7); BASOPHIL % 0.1 % (0.0-2.0); EOSINOPHIL % 0.1 % (0.0-4.0); HEMATOCRIT 26.8 % (35.0-46.0); HEMOGLOBIN 9.6 GM/DL (11.6-15.3); LYMPHOCYTE # 2.2 TH/MM3 (1.0-4.8); MEAN CELL VOLUME 94.4 FL (80.0-100.0); MEAN CORPUSCULAR HEMOGLOBIN 33.9 PG (27.0-34.0); MEAN CORPUSCULAR HGB CONC 35.9 % (32.0-36.0); MEAN PLATELET VOLUME 6.9 FL (7.0-11.0); MONO % 11.4 % (0.0-8.0); MONOCYTE # 0.9 TH/MM3 (0-0.9); NEUT % 62.4 % (16.0-70.0); PLATELET COUNT 161 TH/MM3 (150-450); RED BLOOD COUNT 2.84 MIL/MM3 (4.00-5.30); RED CELL DISTRIBUTION WIDTH 11.8 % (11.6-17.2); WHITE BLOOD COUNT 8.3 TH/MM3 (4.0-11.0)
[2017-09-30 15:56] LABS: BICARBONATE 28.5 MEQ/L (21.0-32.0); CALCIUM 7.8 MG/DL (8.5-10.1); CREATININE 0.58 MG/DL (0.50-1.00); MAGNESIUM 1.8 MG/DL (1.5-2.5)
--- NOTE | 2017-09-30 17:25 | HHI.PR ---
Subjective Remarks Per ICU documentation: This is a 70 years old female patient with a history of spinal stenosis who had an episode of syncope and fall with unknown mechanism of fall. Patient has abrasions to both knees. The patient has weakness in upper extremities and strange feeling in both hands. Patient also had incontinence in route as well as blood pressure of 80/40 and bradycardia 54 bpm which is improved to a blood pressure of 95/50 at presentation and heart rate of 65. Patient denies having headache but does note some neck pain is on a backboard in a c-collar with strict spinal precautions. The CT of the C-spine shows prominent ossification of the posterior longitudinal ligament at C3-5 and C7-T2 with moderate bony central canal narrowing at C4 level. Patient is S/P posterior cervical C3-6 autograft fusion; C3, C4, C5 and C6 decompressive laminectomies; posterior C3-6 lateral mass fixation on 09/28/[address] Chinchilla. Initially patient was admitted to ICU and ion vasopressors. Patient now more stable and we have been consult to assume care. Patient has paralysis BUE and 4 /5 strength in BLE. Offers no complaints at this time. Reports post-op pain tolerable with current medications. Objective Vitals Vital Signs Date Time Temp Pulse Resp B/P (MAP) Pulse Ox O2 Delivery O2 Flow Rate FiO2 09/30/17 16:37 11 09/30/17 16:00 99.7 60 10 127/59 (81) 95 09/30/17 16:00 60 09/30/17 14:59 10 09/30/17 14:00 66 09/30/17 12:00 100.0 60 16 122/59 (80) 96 09/30/17 12:00 60 09/30/17 10:00 60 09/30/17 09:46 96 Nasal Cannula 2.00 09/30/17 08:00 100.0 60 11 119/60 (79) 96 09/30/17 08:00 60 09/30/17 07:00 96 Room Air 09/30/17 06:00 58 09/30/17 04:00 58 09/30/17 04:00 100.0 58 12 113/57 (75) 96 09/30/17 02:00 62 09/30/17 00:00 99.5 63 11 109/53 (71) 97 09/30/17 00:00 63 09/29/17 22:00 68 09/29/17 21:19 96 Nasal Cannula 2.00 09/29/17 20:00 59 09/29/17 20:00 100.4 59 14 112/56 (74) 100 09/29/17 19:00 98 Room Air 09/29/17 18:00 74 09/29/17 18:00 101.1 64 11 109/55 (73) 100 Result Diagram: 09/30/17 1455 09/30/17 1455 Other Results Laboratory Tests Test 09/28/17 03:25 09/29/17 03:40 09/30/17 13:00 09/30/17 14:55 White Blood Count 7.8 TH/MM3 15.3 TH/MM3 8.3 TH/MM3 Red Blood Count 3.32 MIL/MM3 3.17 MIL/MM3 2.84 MIL/MM3 Hemoglobin 11.1 GM/DL 10.7 GM/DL 9.6 GM/DL Hematocrit 31.4 % 29.7 % 26.8 % Mean Corpuscular Volume 94.5 FL 93.8 FL 94.4 FL Mean Corpuscular Hemoglobin 33.4 PG 33.8 PG 33.9 PG Mean Corpuscular Hemoglobin Concent 35.3 % 36.0 % 35.9 % Red Cell Distribution Width 12.2 % 12.1 % 11.8 % Platelet Count 222 TH/MM3 220 TH/MM3 161 TH/MM3 Mean Platelet Volume 6.8 FL 7.0 FL 6.9 FL Neutrophils (%) (Auto) 81.5 % 87.8 % 62.4 % Lymphocytes (%) (Auto) 12.7 % 6.5 % 26.0 % Monocytes (%) (Auto) 5.6 % 5.6 % 11.4 % Eosinophils (%) (Auto) 0.0 % 0.0 % 0.1 % Basophils (%) (Auto) 0.2 % 0.1 % 0.1 % Neutrophils # (Auto) 6.4 TH/MM3 13.4 TH/MM3 5.2 TH/MM3 Lymphocytes # (Auto) 1.0 TH/MM3 1.0 TH/MM3 2.2 TH/MM3 Monocytes # (Auto) 0.4 TH/MM3 0.9 TH/MM3 0.9 TH/MM3 Eosinophils # (Auto) 0.0 TH/MM3 0.0 TH/MM3 0.0 TH/MM3 Basophils # (Auto) 0.0 TH/MM3 0.0 TH/MM3 0.0 TH/MM3 CBC Comment DIFF FINAL AUTO DIFF DIFF FINAL Differential Comment FINAL DIFF MANUAL Prothrombin Time 10.8 SEC Prothromb Time International Ratio 1.1 RATIO Activated Partial Thromboplast Time 26.4 SEC Blood Urea Nitrogen 10 MG/DL 12 MG/DL 17 MG/DL Creatinine 0.57 MG/DL 0.69 MG/DL 0.58 MG/DL Random Glucose 139 MG/DL 163 MG/DL 102 MG/DL Total Protein 6.7 GM/DL Albumin 3.1 GM/DL Calcium Level 7.2 MG/DL 7.8 MG/DL 7.8 MG/DL Phosphorus Level 2.9 MG/DL Magnesium Level 1.9 MG/DL 2.2 MG/DL 1.8 MG/DL Alkaline Phosphatase 49 U/L Aspartate Amino Transf (AST/SGOT) 55 U/L Alanine Aminotransferase (ALT/SGPT) 88 U/L Total Bilirubin 0.2 MG/DL Sodium Level 134 MEQ/L 137 MEQ/L 131 MEQ/L Potassium Level 4.4 MEQ/L 4.6 MEQ/L 4.1 MEQ/L Chloride Level 103 MEQ/L 105 MEQ/L 96 MEQ/L Carbon Dioxide Level 25.0 MEQ/L 27.3 MEQ/L 28.5 MEQ/L Anion Gap 6 MEQ/L 5 MEQ/L 7 MEQ/L Estimat Glomerular Filtration Rate 106 ML/MIN 85 ML/MIN 104 ML/MIN Protein Corrected Calcium 7.4 MG/DL Differential Total Cells Counted 100 Neutrophils % (Manual) 72 % Band Neutrophils % 18 % Lymphocytes % 9 % Monocytes % 1 % Neutrophils # (Manual) 13.8 TH/MM3 Platelet Estimate NORMAL Platelet Morphology Comment NORMAL Urine Color YELLOW Urine Turbidity CLEAR Urine pH 6.5 Urine Specific [place] 1.015 Urine Protein NEG mg/dL Urine Glucose (UA) NEG mg/dL Urine Ketones NEG mg/dL Urine Occult Blood NEG Urine Nitrite NEG Urine Bilirubin NEG Urine Urobilinogen LESS THAN 2.0 MG/DL Urine Leukocyte Esterase NEG Urine RBC 1 /hpf Urine WBC 1 /hpf Urine Mucus FEW /lpf Microscopic Urinalysis Comment CATH-CULT NOT IND Imaging Last Impressions Chest X-Ray 09/30/17 0000 Signed Impressions: Service Date/Time: Saturday, September 30, 2017 11:38 - CONCLUSION: Normal examination. Guy A. Sevigny, MD Cervical Spine X-Ray 09/28/17 0000 Signed Impressions: Service Date/Time: September 09:11 - CONCLUSION: 1. Postsurgical changes as above. Alex Donis MD Head CT [id number] Signed Impressions: Service Date/Time: Wednesday, September 27, 2017 04:13 - CONCLUSION: 1. No acute intracranial abnormality. Keith Gutierres MD Cervical Spine CT [id number] Signed Impressions: Service Date/Time: Wednesday, September 27, 2017 04:13 - CONCLUSION: 1. No acute fracture or subluxation. 2. 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 Keith Gutierres MD Thoracic Spine MRI 09/27/17 0000 Signed Impressions: Service Date/Time: Wednesday, September 27, 2017 05:00 - CONCLUSION: 1. Degenerative spondylosis of the mid thoracic spine most prominently at T6-9. There is effacement of the left anterior lateral recess at T6-7. Otherwise, no significant central canal stenosis or cord signal abnormality. 1. Keith Gutierres MD Pelvis X-Ray 09/27/17 0000 Signed Impressions: Service Date/Time: Wednesday, September 27, 2017 04:00 - CONCLUSION: 1. No acute fracture or dislocation. Keith Gutierres MD Lumbar Spine MRI 09/27/17 0000 Signed Impressions: Service Date/Time: Wednesday, September 27, 2017 05:00 - CONCLUSION: 1. Multilevel degenerative spondylosis of the lumbar spine most prominently at L3- 4 with moderate to severe central canal narrowing to 6 mm. 2. Please see above for detailed description of each level. Keith Gutierres MD Cervical Spine MRI 09/27/17 0000 Signed Impressions: Service Date/Time: Wednesday, September 27, 2017 05:00 - CONCLUSION: 1. No acute fracture or subluxation. 2. Prominent posterior longitudinal ligament calcifications with resultant severe central canal narrowing at C3-6. There is flattening of cervical cord at these levels with very subtle cord signal abnormality at C4-5. Keith Gutierres MD Carotid Artery Ultrasound 09/27/17 0000 Signed Impressions: Service Date/Time: Wednesday, September 27, 2017 08:41 - CONCLUSION: No evidence of flow-limiting carotid stenosis. Quique Goodson MD Objective Remarks GENERAL: Well-nourished, well-developed patient. CARDIOVASCULAR: Regular rate and rhythm RESPIRATORY: Breath sounds equal bilaterally. No accessory muscle use. GASTROINTESTINAL: Abdomen soft, non-tender, nondistended. BS active. MUSCULOSKELETAL: No cyanosis, or edema. Well perfused. NEURO EXAM: Awake and alert. paralysis BUE and 4/5 strength in BLE A/P Problem List: (1) Cervical spinal cord injury ICD Codes: S14.109A - Unspecified injury at unspecified level of cervical spinal cord, initial encounter Status: Acute Plan: Spinal cord injury with both upper and lower extremity weakness - Severe C-spine stenosis as a underlying condition - Hyperextension injury - Decadron per neurosurgery request given (09/27) - MRI Lumbar spine (09/27) revealed Multilevel degenerative spondylosis of the lumbar spine most prominently at L3-4 with moderate to severe central canal narrowing to 6 mm. - MRI cervical spine (09/27) revealed No acute fracture or subluxation. Prominent posterior longitudinal ligament calcifications with resultant severe central canal narrowing at C3-6. There is flattening of cervical cord at these levels with very subtle cord signal abnormality at C4-5. - MRI thoracic spine (09/27) degenerative spondylosis of the mid theracic spine most prominently at T6-9. There is effacement of the left anterior lateral recess T6-7. Otherwise, no significant central canal stenosis or cord signal abnormality. - Patient is S/P posterior cervical C3-6 autograft fusion; C3, C4, C5 and C6 decompressive laminectomies; posterior C3-6 lateral mass fixation on 09/28/[address] Chinchilla. - PT and OT eval and treat as tolerated Hypotension- Resolved Spinal shock with associated hypotension and bradycardia resolved - Initially patient was admitted to ICU and given IV fluid hydration and vasopressors. Patient now more stable and we have been consult to assume care. - Blood cultures NGTD - urine cultures no growth x 48 hours Syncope - troponin < 0.02 - Telemetry - 2-D echo 09/28/17 The left ventricular systolic function is low normal with an estimated ejection fraction in the range of 50-55%. [id number] mitral valve regurgitation. There is trace tricuspid valve regurgitation. The pulmonary valve is not well visualized. technically difficult study - Ultrasound carotids (09/27) No evidence of flow-limiting carotid stenosis Hyperglycemia - Start low SSI Fever Tmax overnight 101.1 WBC 15.3 (3/2) -> 8.3 (3/) CXR 09/30 normal exam UA 09/30 no culture indicated IS Q1H while awake DVT GI prophylaxis - Teds SCDs - Lovenox - Pepcid (2) Syncope and collapse ICD Codes: R55 - Syncope and collapse Status: Acute Plan: Syncope - troponin < 0.02 - Telemetry - 2-D echo 09/28/17 The left ventricular systolic function is low normal with an estimated ejection fraction in the range of 50-55%. [id number] mitral valve regurgitation. There is trace tricuspid valve regurgitation. The pulmonary valve is not well visualized. technically difficult study - Ultrasound carotids (09/27) No evidence of flow-limiting carotid stenosis Assessment and Plan Patient examined. Assessment and plan formulated with Yi Mckeon PA-C. I agree with the above. Problem Qualifiers (1) Cervical spinal cord injury: Qualified Codes: S14.109A - Unspecified injury at unspecified level of cervical spinal cord, initial encounter Yi Mckeon Sep 30, 2017 17:25 Roberto Gonzalez DO Oct 02, 2017 12:38
[2017-09-30] MEDS: CYCLOBENZAPRINE HCL 10 MG TAB PO PRN (17:41)
[2017-10-01] VITALS (14 sets, daily range): BP systolic 109–121; BP diastolic 52–59; PULSE 64–74; RESP 9–15; TEMP 100.1–100.8; O2SAT 94–97
[2017-10-01] MEDS: NS + KCL 20 MEQ INJ 1,000 ML IV SCH ×2 (03:55→16:58)
[2017-10-01] MEDS: CHLORHEXIDINE GLUCONATE 2 % 1 PACK (2 CLOTHS) TOP SCH (04:00)
[2017-10-01] MEDS: CYCLOBENZAPRINE HCL 10 MG TAB PO PRN (05:08)
[2017-10-01] MEDS: HYDROmorphone HCL PF 2 MG/ML VIAL IV PRN ×2 (05:20→14:18)
[2017-10-01] MEDS: INSULIN ASPART SUPPLEMENTAL SCALE SQ SCH ×2 (08:00→12:00)
[2017-10-01] MEDS: ACETAMINOPHEN 325 MG TAB PO PRN ×2 (09:08→10:27)
[2017-10-01] MEDS: DOCUSATE SODIUM 50 MG/SENNA 8.6 MG TAB PO SCH ×2 (09:08→20:02)
[2017-10-01] MEDS: ENOXAPARIN SODIUM 40 MG/0.4 ML SYRINGE SQ SCH (09:08)
[2017-10-01] MEDS: FAMOTIDINE 20 MG/2 ML VIAL IV PUSH SCH ×2 (09:08→20:02)
[2017-10-01] MEDS: SODIUM CHLORIDE 0.9% FLUSH 10 ML FLUSH IV FLUSH SCH ×2 (09:09→20:02)
[2017-10-01] MEDS: ACETAMINOPHEN 325MG/HYDROcodone 7.5MG/15ML UDC PO PRN (11:15)
--- NOTE | 2017-10-01 12:18 | HHI.NSPN ---
(Tiffanie Cruz) Note Status Status: Progress Note (Tiffanie Cruz) Interval History Interval History This is a 66 year-old female who this morning had a syncopal episode while she was in the bathroom urinating. She felt light-headed and dizzy prior to this and fell and lost consciousness. The next thing she remembers waking up with her screaming at her and slapping her face and she was unable to move her arms or legs with loss of complete sensation in the whole body. She also relates that she was having a difficult time exchanging air and the relates that she was very pale. Subsequently, her sensation started to improve more so in the legs than arms along with movement, although she still has numbness in her upper extremities and inability to move her upper extremities, but the lower extremity strength is improving. She was bradycardic and hypotensive en route which has improved since her admission, but she has also been placed on phenylephrine IV drip to provide hemodynamic support. She relates that she has had two syncopal episodes, one a couple years ago and one as a child, although does not relate having had any workup for this. She denies any chest pain or shortness of breath. She had a lumbar laminectomy by Dr. 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 She relate the history of cervical stenosis in the past, but this was treated conservatively. Trauma workup on presentation this morning as a trauma alert included a CT scan of the head which was negative for any intracranial abnormality. CT of the cervical spine reveals significant ossification of the posterior longitudinal ligament extending from the C3-C5 levels along with some C7-T2 ossification. Also, there is significant stenosis in the cervical spine from this. No fractures are noted. She subsequently has also had an MRI scan of the cervical and thoracic spine which reveals severe stenosis from C3-C7 levels with cord compression and cord contusion injury at the C4-5 level. Pelvis x-rays are negative. She has been admitted to the intensive care unit for close neurologic monitoring and hemodynamic support with IV fluids and vasopressors on board. She also initially received Decadron. 3/2/18: Pt underwent a posterior cervical C3-6 autograft fusion; C3, C4, C5 and C6 decompressive laminectomies; posterior C3-6 lateral mass fixation on . She complains of neck pain but doing well. She states some pain in shoulders. She denies radiculopathy in UEs. weakness in UEs more than LEs consistent with central spinal cord injury. 09/30/17: doing well, no acute events overnight, stable weakness in extremities. 10/01: no new neuro changes, nrs reports pt very anxious when trying to mobilize. she reportedly takes Paxil at home and would like this to be restarted (Tiffanie Crzu) Labs, Micro, & Vital Signs Results Date Time Temp Pulse Resp B/P (MAP) Pulse Ox O2 Delivery O2 Flow Rate FiO2 10/01/17 11:16 10 10/01/17 10:14 96 Nasal Cannula 3.00 10/01/17 06:00 67 10/01/17 05:50 10 10/01/17 04:00 66 10/01/17 04:00 100.5 66 10 121/59 (79) 97 10/01/17 02:00 64 10/01/17 00:00 100.8 64 15 109/52 (71) 97 10/01/17 00:00 64 09/30/17 23:14 16 09/30/17 22:00 69 09/30/17 21:30 94 Nasal Cannula 3.00 09/30/17 20:00 72 09/30/17 20:00 100.4 72 15 107/57 (74) 97 09/30/17 19:00 97 Room Air 09/30/17 18:00 70 09/30/17 16:00 99.7 60 10 127/59 (81) 95 09/30/17 16:00 60 09/30/17 14:00 66 Constitutional Vital Signs Date Time Temp Pulse Resp B/P (MAP) Pulse Ox O2 Delivery O2 Flow Rate FiO2 10/01/17 11:16 10 10/01/17 10:14 96 Nasal Cannula 3.00 10/01/17 06:00 67 10/01/17 05:50 10 10/01/17 04:00 66 10/01/17 04:00 100.5 66 10 121/59 (79) 97 10/01/17 02:00 64 10/01/17 00:00 100.8 64 15 109/52 (71) 97 10/01/17 00:00 64 09/30/17 23:14 16 09/30/17 22:00 69 09/30/17 21:30 94 Nasal Cannula 3.00 09/30/17 20:00 72 09/30/17 20:00 100.4 72 15 107/57 (74) 97 09/30/17 19:00 97 Room Air 09/30/17 18:00 70 09/30/17 16:00 99.7 60 10 127/59 (81) 95 09/30/17 16:00 60 09/30/17 14:00 66 (Tiffanie Cruz) Physical Exam General: Pt awake and alert in bed in NAD with stable vital signs. appears comfortable in bed. Eyes: Pupils equal. Sclera anicteric. Abd: soft positive bs Skin: Wound with clean and dry [place] in place. Muscle: Dense paraparesis in upper extremities, gross movements left upper extremity. Moves bilateral lower extremities 3-4/5 Neck: [place] cervical collar intact. Neuro: Pt awake and alert. Follows commands well. Speech clear and appropriate. (Tiffanie Cruz) Medications Current Medications Current Medications Medications (Trade) Dose Ordered Sig/Elmer Route PRN Reason Start Time Stop Time Status Last Admin Dose Admin Acetaminophen (Tylenol) 650 mg Q6H PRN PO FEVER >101F 09/27/17 05:30 10/01/17 10:27 Famotidine (Pepcid Inj) 20 mg Q12HR IV PUSH 09/27/17 09:00 10/01/17 09:08 Ondansetron HCl (Zofran Inj) 4 mg Q6H PRN IV PUSH NAUSEA OR VOMITING 09/27/17 05:30 Temazepam (Restoril) 15 mg HS PRN PO INSOMNIA 09/27/17 05:30 Albuterol/ Ipratropium (Duoneb Neb) 1 ampule Q2HR NEB PRN INH WHEEZING 09/27/17 05:30 09/29/17 21:14 Miscellaneous Information 1 [id number] XX 09/27/17 05:30 Chlorhexidine Gluconate (Chlorhexidine 2% Cloth) 3 pack Taper DAILY@04 TOP 09/28/17 04:00 09/24/18 03:59 Chlorhexidine Gluconate (Chlorhexidine 2% Cloth) 3 pack UNSCH PRN TOP HYGIENIC CARE 09/27/17 05:30 Lactulose (Lactulose Liq) 30 ml DAILY PRN PO SEVERE CONSITIPATION 09/27/17 05:30 Terbutaline Sulfate (Brethine Inj) 1 mg UNSCH PRN SQ For Extravasation 09/27/17 05:45 Potassium Chloride/Sodium Chloride 1,000 ml @ 75 mls/hr [id number] IV 09/27/17 10:15 10/01/17 03:55 Enoxaparin Sodium (Lovenox Inj) 40 mg Q24H SQ 10/01/17 09:00 10/01/17 09:08 Sodium Chloride (NS Flush) 2 ml UNSCH PRN IV FLUSH FLUSH AFTER USING IV ACCESS 09/28/17 14:00 Sodium Chloride (NS Flush) 2 ml BID IV FLUSH 09/28/17 21:00 10/01/17 09:09 Al Hydrox/Mg Hydrox/Simethicone (Mag-Al Plus Susp Liq) 30 ml Q6H PRN PO DYSPEPSIA 09/28/17 14:00 Promethazine HCl (Phenergan Inj) 25 mg Q4H PRN IM NAUSEA OR VOMITING 09/28/17 14:00 Cyclobenzaprine HCl (Flexeril) 10 mg Q8H PRN PO MUSCLE SPASM 09/28/17 14:00 10/01/17 05:08 Labetalol HCl (Trandate Inj) 10 mg Q1H PRN IV PUSH SYS BP GREATER THAN 170 MMHG 09/28/17 14:00 Clonidine (Catapres) 0.1 mg Q6H PRN PO SYS BP GREATER THAN 170 MMHG 09/28/17 14:00 Menthol ([place] Akshat) 1 lozenge UNSCH PRN BUCCAL SORE THROAT 09/28/17 14:00 Zolpidem Tartrate (Ambien) 5 mg HS PRN PO INSOMNIA 09/28/17 14:00 Senna/Docusate Sodium (Mally-Colace) 1 tab BID PO 09/28/17 21:00 10/01/17 09:08 Magnesium Hydroxide (Milk Of Magnesia Liq) 30 ml Q12H PRN PO Mild constipation 09/28/17 14:00 Sennosides (Senokot) 17.2 mg Q12H PRN PO Moderate constipation 09/28/17 14:00 Bisacodyl (Dulcolax Supp) 10 mg DAILY PRN RECTAL SEVERE CONSITIPATION 09/28/17 14:00 Hydromorphone HCl (Dilaudid Pf Inj) 0.5 mg Q2H PRN IV breakthrough PAIN 6-10 09/28/17 18:00 10/01/17 05:20 Acetaminophen/ Hydrocodone Bitart (Hycet 325-7.5 Mg Liq) 15 ml Q6H PRN PO pain 5-10 09/28/17 17:15 10/01/17 11:15 Dextrose (D50w (Vial) Inj) 50 ml UNSCH PRN IV PUSH HYPOGLYCEMIA-SEE COMMENTS 09/29/17 08:00 Glucagon (Glucagon Inj) 1 mg UNSCH PRN OTHER HYPOGLYCEMIA-SEE COMMENTS 09/29/17 08:00 Insulin Aspart (NovoLOG SUPPLEMENTAL SCALE) 1 ACHS SLIDING SCALE SQ 09/29/17 08:00 09/29/17 12:43 Phenylephrine HCl 40 mg/Dextrose 500 ml @ 30 mls/hr TITRATE PRN IV Blood Pressure Management 09/29/17 08:00 (Tiffanie Cruz) Medical Decision Making MDM Remarks 66 y/o female 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 She has multi-level cervical stenosis in particular from C3-C6 level predominantly from osteophyte posterior longitudinal ligament along with disk osteophyte complexes with spinal cord compression and contusion. s/p posterior cervical C3-6 autograft fusion; C3, C4, C5 and C6 decompressive laminectomies; posterior C3-6 lateral mass fixation on 09/28/17 (Tiffanie Cruz) Plan Plan Remarks ok to restart joan from Dr. James Continue with cervical collar Continue with incision care jamie need to be removed 12 days post op. Continue with Decadron Continue with PT and OT rehab efforts dw patient and family in room (Tiffanie Cruz) Attending Statement The exam, history, and the medical decision-making described in the above note were completed with the assistance of the mid-level provider. I reviewed and agree with the findings presented. I attest that I had a [id number] encounter with the patient on the same day, and personally performed and documented my assessment and findings in the medical record. (Ariel James MD) Tiffanie Cruz Oct 01, 2017 12:18 Ariel James MD Oct 02, 2017 13:01
[2017-10-01] MEDS ORDERED: PILL SPLITTER OTHER PRN (12:30)
[2017-10-01 13:40] LABS: AUTOMATED NEUTROPHIL # 5.5 TH/MM3 (1.8-7.7); BASOPHIL % 0.4 % (0.0-2.0); EOSINOPHIL % 0.1 % (0.0-4.0); HEMATOCRIT 29.4 % (35.0-46.0); HEMOGLOBIN 10.6 GM/DL (11.6-15.3); MEAN CELL VOLUME 93.4 FL (80.0-100.0); MEAN CORPUSCULAR HEMOGLOBIN 33.8 PG (27.0-34.0); MEAN PLATELET VOLUME 6.8 FL (7.0-11.0); MONO % 12.4 % (0.0-8.0); MONOCYTE # 1.1 TH/MM3 (0-0.9); NEUT % 64.1 % (16.0-70.0); PLATELET COUNT 190 TH/MM3 (150-450); RED BLOOD COUNT 3.15 MIL/MM3 (4.00-5.30); RED CELL DISTRIBUTION WIDTH 11.7 % (11.6-17.2); WHITE BLOOD COUNT 8.6 TH/MM3 (4.0-11.0)
[2017-10-01 13:47] LABS: MEAN CORPUSCULAR HGB CONC 36.2 % (32.0-36.0)
[2017-10-01 14:04] LABS: BICARBONATE 31.5 MEQ/L (21.0-32.0); CALCIUM 8.2 MG/DL (8.5-10.1); CREATININE 0.64 MG/DL (0.50-1.00)
[2017-10-01] MEDS: PARoxetine HCL 20 MG TAB PO SCH (14:10)
--- NOTE | 2017-10-01 16:10 | HHI.PR ---
Subjective Remarks Patient offers no complaints able to move left upper extremity slightly and able to move bilateral shoulders BLE remain 3-11/02 Objective Vitals Vital Signs Date Time Temp Pulse Resp B/P (MAP) Pulse Ox O2 Delivery O2 Flow Rate FiO2 10/01/17 15:25 17 10/01/17 12:15 11 10/01/17 11:16 10 10/01/17 10:14 96 Nasal Cannula 3.00 10/01/17 06:00 67 10/01/17 04:00 66 10/01/17 04:00 100.5 66 10 121/59 (79) 97 10/01/17 02:00 64 10/01/17 00:00 100.8 64 15 109/52 (71) 97 10/01/17 00:00 64 09/30/17 22:00 69 09/30/17 21:30 94 Nasal Cannula 3.00 09/30/17 20:00 72 09/30/17 20:00 100.4 72 15 107/57 (74) 97 09/30/17 19:00 97 Room Air 09/30/17 18:00 70 Result Diagram: 10/01/17 1324 10/01/17 1324 Other Results Laboratory Tests Test 09/29/17 03:40 09/30/17 13:00 09/30/17 14:55 10/01/17 13:24 White Blood Count 15.3 TH/MM3 8.3 TH/MM3 8.6 TH/MM3 Red Blood Count 3.17 MIL/MM3 2.84 MIL/MM3 3.15 MIL/MM3 Hemoglobin 10.7 GM/DL 9.6 GM/DL 10.6 GM/DL Hematocrit 29.7 % 26.8 % 29.4 % Mean Corpuscular Volume 93.8 FL 94.4 FL 93.4 FL Mean Corpuscular Hemoglobin 33.8 PG 33.9 PG 33.8 PG Mean Corpuscular Hemoglobin Concent 36.0 % 35.9 % 36.2 % Red Cell Distribution Width 12.1 % 11.8 % 11.7 % Platelet Count 220 TH/MM3 161 TH/MM3 190 TH/MM3 Mean Platelet Volume 7.0 FL 6.9 FL 6.8 FL Neutrophils (%) (Auto) 87.8 % 62.4 % 64.1 % Lymphocytes (%) (Auto) 6.5 % 26.0 % 23.0 % Monocytes (%) (Auto) 5.6 % 11.4 % 12.4 % Eosinophils (%) (Auto) 0.0 % 0.1 % 0.1 % Basophils (%) (Auto) 0.1 % 0.1 % 0.4 % Neutrophils # (Auto) 13.4 TH/MM3 5.2 TH/MM3 5.5 TH/MM3 Lymphocytes # (Auto) 1.0 TH/MM3 2.2 TH/MM3 2.0 TH/MM3 Monocytes # (Auto) 0.9 TH/MM3 0.9 TH/MM3 1.1 TH/MM3 Eosinophils # (Auto) 0.0 TH/MM3 0.0 TH/MM3 0.0 TH/MM3 Basophils # (Auto) 0.0 TH/MM3 0.0 TH/MM3 0.0 TH/MM3 CBC Comment AUTO DIFF DIFF FINAL AUTO DIFF Differential Total Cells Counted 100 Neutrophils % (Manual) 72 % Band Neutrophils % 18 % Lymphocytes % 9 % Monocytes % 1 % Neutrophils # (Manual) 13.8 TH/MM3 Differential Comment FINAL DIFF MANUAL AUTO DIFF CONFIRMED Platelet Estimate NORMAL Platelet Morphology Comment NORMAL Blood Urea Nitrogen 12 MG/DL 17 MG/DL 11 MG/DL Creatinine 0.69 MG/DL 0.58 MG/DL 0.64 MG/DL Random Glucose 163 MG/DL 102 MG/DL 118 MG/DL Calcium Level 7.8 MG/DL 7.8 MG/DL 8.2 MG/DL Magnesium Level 2.2 MG/DL 1.8 MG/DL Sodium Level 137 MEQ/L 131 MEQ/L 134 MEQ/L Potassium Level 4.6 MEQ/L 4.1 MEQ/L 4.0 MEQ/L Chloride Level 105 MEQ/L 96 MEQ/L 98 MEQ/L Carbon Dioxide Level 27.3 MEQ/L 28.5 MEQ/L 31.5 MEQ/L Anion Gap 5 MEQ/L 7 MEQ/L 5 MEQ/L Estimat Glomerular Filtration Rate 85 ML/MIN 104 ML/MIN 93 ML/MIN Urine Color YELLOW Urine Turbidity CLEAR Urine pH 6.5 Urine Specific [place] 1.015 Urine Protein NEG mg/dL Urine Glucose (UA) NEG mg/dL Urine Ketones NEG mg/dL Urine Occult Blood NEG Urine Nitrite NEG Urine Bilirubin NEG Urine Urobilinogen LESS THAN 2.0 MG/DL Urine Leukocyte Esterase NEG Urine RBC 1 /hpf Urine WBC 1 /hpf Urine Mucus FEW /lpf Microscopic Urinalysis Comment CATH-CULT NOT IND Imaging Last Impressions Chest X-Ray 09/30/17 0000 Signed Impressions: Service Date/Time: Saturday, September 30, 2017 11:38 - CONCLUSION: Normal examination. Guy Funes MD Cervical Spine X-Ray 09/28/17 0000 Signed Impressions: Service Date/Time: September 09:11 - CONCLUSION: 1. Postsurgical changes as above. Alex Donis MD Head CT [id number]/[id number] Signed Impressions: Service Date/Time: Wednesday, September 27, 2017 04:13 - CONCLUSION: 1. No acute intracranial abnormality. Keith Gutierres MD Cervical Spine CT [id number] Signed Impressions: Service Date/Time: Wednesday, September 27, 2017 04:13 - CONCLUSION: 1. No acute fracture or subluxation. 2. 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 Keith Gutierres MD Thoracic Spine MRI 09/27/17 Signed Impressions: Service Date/Time: Wednesday, September 27, 2017 05:00 - CONCLUSION: 1. Degenerative spondylosis of the mid thoracic spine most prominently at T6-9. There is effacement of the left anterior lateral recess at T6-7. Otherwise, no significant central canal stenosis or cord signal abnormality. 1. Keith Gutierres MD Pelvis X-Ray 09/27/17 Signed Impressions: Service Date/Time: Wednesday, September 27, 2017 04:00 - CONCLUSION: 1. No acute fracture or dislocation. Keith Gutierres MD Lumbar Spine MRI 09/27/17 0000 Signed Impressions: Service Date/Time: Wednesday, September 27, 2017 05:00 - CONCLUSION: 1. Multilevel degenerative spondylosis of the lumbar spine most prominently at L3- 4 with moderate to severe central canal narrowing to 6 mm. 2. Please see above for detailed description of each level. Keith Gutierres MD Cervical Spine MRI 09/27/17 0000 Signed Impressions: Service Date/Time: Wednesday, September 27, 2017 05:00 - CONCLUSION: 1. No acute fracture or subluxation. 2. Prominent posterior longitudinal ligament calcifications with resultant severe central canal narrowing at C3-6. There is flattening of cervical cord at these levels with very subtle cord signal abnormality at C4-5. Keith Gutierres MD Carotid Artery Ultrasound 09/27/17 0000 Signed Impressions: Service Date/Time: Wednesday, September 27, 2017 08:41 - CONCLUSION: No evidence of flow-limiting carotid stenosis. Quique Goodson MD Objective Remarks GENERAL: Well-nourished, well-developed patient. CARDIOVASCULAR: Regular rate and rhythm RESPIRATORY: Breath sounds equal bilaterally. No accessory muscle use. GASTROINTESTINAL: Abdomen soft, non-tender, nondistended. BS active. MUSCULOSKELETAL: No cyanosis, or edema. Well perfused. NEURO EXAM: Awake and alert. near paralysis BUE patient able to move left upper extremity slightly and able to move bilateral shoulders BLE remain 3-11/02 Procedures S/P posterior cervical C3-6 autograft fusion; C3, C4, C5 and C6 decompressive laminectomies; posterior C3-6 lateral mass fixation on 09/28/[address] Chinchilla. 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 - MRI cervical spine (09/27) revealed No acute fracture or subluxation. Prominent posterior longitudinal ligament calcifications with resultant severe central canal narrowing at C3-6. There is flattening of cervical cord at these levels with very subtle cord signal abnormality at C4-5. - MRI thoracic spine (09/27) degenerative spondylosis of the mid thoracic spine most prominently at T6-9. There is effacement of the left anterior lateral recess T6-7. Otherwise, no significant central canal stenosis or cord signal abnormality. - Patient is S/P posterior cervical C3-6 autograft fusion; C3, C4, C5 and C6 decompressive laminectomies; posterior C3-6 lateral mass fixation on 09/28/[address] Chinchilla. - PT and OT eval and treat as tolerated Hypotension- Resolved Spinal shock with associated hypotension and bradycardia resolved - Initially patient was admitted to ICU and given IV fluid hydration and vasopressors. Patient now more stable and we have been consult to assume care. - Blood cultures NGTD - urine cultures no growth x 48 hours Syncope - troponin < 0.02 - Telemetry - 2-D echo 09/28/17 The left ventricular systolic function is low normal with an estimated ejection fraction in the range of 50-55%. [id number] mitral valve regurgitation. There is trace tricuspid valve regurgitation. The pulmonary valve is not well visualized. technically difficult study - Ultrasound carotids (09/27) No evidence of flow-limiting carotid stenosis Hyperglycemia - Start low SSI Fever Tmax overnight 101.1 WBC 15.3 (09/29) -> 8.3 (09/30) -> 8.6 (10/01) CXR 09/30 normal exam UA 09/30 no culture indicated IS Q1H while awake recheck CBC in AM surgical dressing dry and intact Anxiety Paxil restarted Ativan IV as needed DVT GI prophylaxis - Teds SCDs - Lovenox - Pepcid (2) Syncope and collapse ICD Codes: R55 - Syncope and collapse Status: Acute Plan: Syncope - troponin < 0.02 - Telemetry - 2-D echo 09/28/17 The left ventricular systolic function is low normal with an estimated ejection fraction in the range of 50-55%. [id number] mitral valve regurgitation. There is trace tricuspid valve regurgitation. The pulmonary valve is not well visualized. technically difficult study - Ultrasound carotids (09/27) No evidence of flow-limiting carotid stenosis Assessment and Plan Patient examined. Assessment and plan formulated with Yi Mckeon PA-C. I agree with the above. Problem Qualifiers (1) Cervical spinal cord injury: Qualified Codes: S14.109A - Unspecified injury at unspecified level of cervical spinal cord, initial encounter Yi Mckeon Oct 01, 2017 16:10 Roberto Gonzalez DO Oct 02, 2017 12:39
[2017-10-01] MEDS: ZOLPIDEM TARTRATE 5 MG TAB PO PRN (20:02)
[2017-10-01] MEDS: LORazepam 2 MG/ML VIAL IV PUSH PRN (20:02)
[2017-10-01] MEDS ORDERED: CYCLOBENZAPRINE HCL 10 MG TAB PO PRN (21:00)
[2017-10-02] VITALS (11 sets, daily range): BP systolic 105–141; BP diastolic 53–63; PULSE 60–75; RESP 9–18; TEMP 98.4–101.1; O2SAT 94–98
[2017-10-02] MEDS: CHLORHEXIDINE GLUCONATE 2 % 1 PACK (2 CLOTHS) TOP SCH (00:15)
[2017-10-02] MEDS: ACETAMINOPHEN 325 MG TAB PO PRN (00:20)
[2017-10-02 04:31] LABS: AUTOMATED NEUTROPHIL # 5.8 TH/MM3 (1.8-7.7); BASOPHIL % 0.1 % (0.0-2.0); EOSINOPHIL % 0.4 % (0.0-4.0); HEMATOCRIT 27.6 % (35.0-46.0); HEMOGLOBIN 10.3 GM/DL (11.6-15.3); LYMPH % 20.1 % (9.0-44.0); LYMPHOCYTE # 1.7 TH/MM3 (1.0-4.8); MEAN CELL VOLUME 92.6 FL (80.0-100.0); MEAN CORPUSCULAR HEMOGLOBIN 34.4 PG (27.0-34.0); MEAN PLATELET VOLUME 7.3 FL (7.0-11.0); MONO % 12.2 % (0.0-8.0); MONOCYTE # 1.1 TH/MM3 (0-0.9); NEUT % 67.2 % (16.0-70.0); PLATELET COUNT 185 TH/MM3 (150-450); RED BLOOD COUNT 2.99 MIL/MM3 (4.00-5.30); RED CELL DISTRIBUTION WIDTH 11.9 % (11.6-17.2); WHITE BLOOD COUNT 8.6 TH/MM3 (4.0-11.0)
[2017-10-02 04:35] LABS: MEAN CORPUSCULAR HGB CONC 37.2 % (32.0-36.0)
[2017-10-02 05:01] LABS: BICARBONATE 28.8 MEQ/L (21.0-32.0); CALCIUM 8.4 MG/DL (8.5-10.1); CREATININE 0.48 MG/DL (0.50-1.00)
[2017-10-02] MEDS: HYDROmorphone HCL PF 2 MG/ML VIAL IV PRN ×2 (05:45→12:56)
[2017-10-02] MEDS: SODIUM CHLORIDE 0.9% FLUSH 10 ML FLUSH IV FLUSH SCH ×2 (08:53→20:26)
[2017-10-02] MEDS: DOCUSATE SODIUM 50 MG/SENNA 8.6 MG TAB PO SCH ×2 (08:56→20:25)
[2017-10-02] MEDS: PARoxetine HCL 20 MG TAB PO SCH (08:56)
[2017-10-02] MEDS: FAMOTIDINE 20 MG/2 ML VIAL IV PUSH SCH ×2 (08:56→20:25)
[2017-10-02] MEDS: ENOXAPARIN SODIUM 40 MG/0.4 ML SYRINGE SQ SCH (08:56)
--- NOTE | 2017-10-02 11:12 | HHI.PR ---
Subjective Remarks no complaints. thinks her left hand is stronger. no n/v/d denies abd pain. no cough has benitez. Objective Vitals nad heart reg lung cta abd s/nt ext no edema benitez. Vital Signs Date Time Temp Pulse Resp B/P (MAP) Pulse Ox O2 Delivery O2 Flow Rate FiO2 10/02/17 10:00 75 10/02/17 08:00 64 10/02/17 08:00 100.0 64 14 125/62 (83) 95 10/02/17 07:00 99 Room Air 10/02/17 06:15 14 10/02/17 06:00 68 10/02/17 04:00 64 10/02/17 04:00 99.3 64 18 105/54 (71) 94 10/02/17 02:00 66 10/02/17 01:20 12 10/02/17 00:00 68 10/02/17 00:00 101.1 68 12 141/63 (89) 96 10/01/17 22:00 72 10/01/17 20:40 96 21 10/01/17 20:00 68 10/01/17 20:00 100.4 68 14 118/59 (78) 96 10/01/17 19:00 98 Room Air 10/01/17 18:00 72 10/01/17 16:00 64 10/01/17 16:00 100.2 64 9 121/59 (79) 94 10/01/17 14:00 74 10/01/17 12:15 11 10/01/17 12:00 68 10/01/17 12:00 100.4 68 12 121/59 (79) 94 Result Diagram: 10/02/17 0307 10/02/17 0307 Imaging Last Impressions Chest X-Ray 09/30/17 0000 Signed Impressions: Service Date/Time: Saturday, September 30, 2017 11:38 - CONCLUSION: Normal examination. Guy Funes MD Cervical Spine X-Ray 09/28/17 0000 Signed Impressions: Service Date/Time: September 09:11 - CONCLUSION: 1. Postsurgical changes as above. Alex Donis MD Head CT 09/27/17 0402 Signed Impressions: Service Date/Time: Wednesday, September 27, 2017 04:13 - CONCLUSION: 1. No acute intracranial abnormality. Keith Gutierres MD Cervical Spine CT 09/27/17 0402 Signed Impressions: Service Date/Time: Wednesday, September 27, 2017 04:13 - CONCLUSION: 1. No acute fracture or subluxation. 2. 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 Keith Gutierres MD Thoracic Spine MRI 09/27/17 0000 Signed Impressions: Service Date/Time: Wednesday, September 27, 2017 05:00 - CONCLUSION: 1. Degenerative spondylosis of the mid thoracic spine most prominently at T6-9. There is effacement of the left anterior lateral recess at T6-7. Otherwise, no significant central canal stenosis or cord signal abnormality. 1. Keith Gutierres MD Pelvis X-Ray 09/27/17 0000 Signed Impressions: Service Date/Time: Wednesday, September 27, 2017 04:00 - CONCLUSION: 1. No acute fracture or dislocation. Keith Gutierres MD Lumbar Spine MRI 09/27/17 0000 Signed Impressions: Service Date/Time: Wednesday, September 27, 2017 05:00 - CONCLUSION: 1. Multilevel degenerative spondylosis of the lumbar spine most prominently at L3- 4 with moderate to severe central canal narrowing to 6 mm. 2. Please see above for detailed description of each level. Keith Gutierres MD Cervical Spine MRI 09/27/17 0000 Signed Impressions: Service Date/Time: Wednesday, September 27, 2017 05:00 - CONCLUSION: 1. No acute fracture or subluxation. 2. Prominent posterior longitudinal ligament calcifications with resultant severe central canal narrowing at C3-6. There is flattening of cervical cord at these levels with very subtle cord signal abnormality at C4-5. Keith Gutierres MD Carotid Artery Ultrasound 09/27/17 0000 Signed Impressions: Service Date/Time: Wednesday, September 27, 2017 08:41 - CONCLUSION: No evidence of flow-limiting carotid stenosis. Quique Goodson MD Procedures S/P posterior cervical C3-6 autograft fusion; C3, C4, C5 and C6 decompressive laminectomies; posterior C3-6 lateral mass fixation on 09/28/[address] Chinchilla. 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 - MRI cervical spine (09/27) revealed No acute fracture or subluxation. Prominent posterior longitudinal ligament calcifications with resultant severe central canal narrowing at C3-6. There is flattening of cervical cord at these levels with very subtle cord signal abnormality at C4-5. - MRI thoracic spine (09/27) degenerative spondylosis of the mid thoracic spine most prominently at T6-9. There is effacement of the left anterior lateral recess T6-7. Otherwise, no significant central canal stenosis or cord signal abnormality. - Patient is S/P posterior cervical C3-6 autograft fusion; C3, C4, C5 and C6 decompressive laminectomies; posterior C3-6 lateral mass fixation on 09/28/[address] Chinchilla. - PT and OT eval and treat as tolerated Hypotension- Resolved Spinal shock with associated hypotension and bradycardia resolved - Initially patient was admitted to ICU and given IV fluid hydration and vasopressors. Patient now more stable and we have been consult to assume care. - Blood cultures NGTD - urine cultures no growth x 48 hours Syncope - troponin < 0.02 - Telemetry - 2-D echo 09/28/17 The left ventricular systolic function is low normal with an estimated ejection fraction in the range of 50-55%. [id number] mitral valve regurgitation. There is trace tricuspid valve regurgitation. The pulmonary valve is not well visualized. technically difficult study - Ultrasound carotids (09/27) No evidence of flow-limiting carotid stenosis Hyperglycemia - Start low SSI Fever unclear etiology. ?surgical site inflammation. blood cx ngtd WBC 15.3 (3/2) -> 8.3 (3/3) -> 8.6 (3/4) CXR 3/ normal exam UA / no culture indicated IS Q1H while awake surgical dressing dry and intact ID was consulted d/c benitez cath today. Anxiety Paxil restarted Ativan IV as needed DVT GI prophylaxis - Teds SCDs - Lovenox - Pepcid (2) Syncope and collapse ICD Codes: R55 - Syncope and collapse Status: Acute Plan: Syncope - troponin < 0.02 - Telemetry - 2-D echo 09/28/17 The left ventricular systolic function is low normal with an estimated ejection fraction in the range of 50-55%. [id number] mitral valve regurgitation. There is trace tricuspid valve regurgitation. The pulmonary valve is not well visualized. technically difficult study - Ultrasound carotids (09/27) No evidence of flow-limiting carotid stenosis Problem Qualifiers (1) Cervical spinal cord injury: Qualified Codes: S14.109A - Unspecified injury at unspecified level of cervical spinal cord, initial encounter Zay Contreras MD Oct 02, 2017 11:11
--- NOTE | 2017-10-02 11:35 | RADRPT ---
EXAM DATE/TIME: 10/02/2017 11:17 [facility] COMPARISON: CHEST SINGLE AP, September 30, 2017, 11:38. INDICATIONS : Pneumonia. MEDICAL HISTORY : Hypertension. Diabetes mellitus type II. SURGICAL HISTORY : Hysterectomy. Cholecystectomy. ENCOUNTER: Initial ACUITY: 4 - 6 days PAIN SCORE: 0/10 LOCATION: Bilateral chest FINDINGS: A single view of the chest demonstrates the lungs to be symmetrically aerated without evidence of mas s, infiltrate or effusion. The cardiomediastinal contours are unremarkable. Osseous structures are intact. CONCLUSION: Improved, lungs are clear Jovanny Pedraza MD FACR on October 02, 2017 at 11:33 Board Certified Radiologist. This report was verified electronically.
[2017-10-02] MEDS: ACETAMINOPHEN 325MG/HYDROcodone 7.5MG/15ML UDC PO PRN ×2 (11:40→23:53)
--- NOTE | 2017-10-02 11:46 | PD.ID.CON ---
History of Present Illness Service ID Consult Requested By Reason for Consult Evaluation and Mment of fever in a patient with spinal cord injury. Primary Care Physician Jaylon Pope Jr, MD Diagnoses: History of Present Illness is a 66 y/o CF with PMHx of Cervical spinal stenosis, Lumbar laminectomy with chronic right foot and leg weakness. With this background patient presented to the hospital with a history of syncopal episode while she was in the bathroom urinating. She reports she felt lightheaded and dizzy prior to this episode and fell and lost consciousness. She goes on to report that the next thing she remembers is waking up with her screaming at her bedside and slapping her face to wake her up. She reports feeling of inability to move her arms and legs with complete loss of sensation in the whole body. She also reports that she may have had difficulty breathing at that time. Shortly thereafter his sensation started to improve more so in the legs than the arms. Upon arrival in the emergency department patient was bradycardic and hypotensive and without. She was started on the phenylephrine IV drip to provide hemodynamic support. Patient reports she has had 2 syncopal episodes of this nature in the past one a couple years ago and one as a child. Patient reports she has never had a workup for this. She denies any cardiopulmonary or abdominal patient reports having a lumbar laminectomy but reports she had no hardware placed as it would not be necessary. The surgery was by Dr. Bradley and it was a couple years ago. Patient reports she has had a right sided foot drop around the time of that surgery difficult to tease out if it was before after surgery. Patient reports that she had been told that she had cervical spinal stenosis but this was managed conservatively. 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 No fractures were noted but significant stenosis noted at these levels. Patient subsequently had an MRI of the cervical and thoracic spine which revealed severe stenosis from C3-C7 level with cord compression and cord contusion injury at C4-C5 level. Patient was admitted in the intensive surgical care unit was given IV fluids, vasopressors and also received IV Decadron. On September 28, 2017 patient underwent Posterior cervical C3-6 autograft fusion; C3 , C4, C5 and C6 decompressive laminectomies; posterior C3-6 lateral mass fixation; microsurgical technique. Patient has had fevers ID is consulted for evaluation and Mment. Patient has had cultures since admission with no growth. At the time of my evaluation patient remains in intensive surgical care unit is now sitting in a chair has a neck brace in place. Hemodynamically stable with no cardiorespiratory symptoms. Urine output is good. No rash no diarrhea Apparent further questioning patient reports that she had no fevers chills night sweats. She denies any genitourinary, gastro-intestinal or cardiopulmonary symptoms prior to admission. She has not been hospitalized in the last several years since the last surgery she had. No history of recurrent UTIs needing antibiotics. No history of sick contacts. Review of Systems Constitutional: DENIES: Diaphoretic episodes, Fatigue, Fever, Weight gain, Weight loss, Chills, Dizziness, Change in appetite, Night Sweats Endocrine: DENIES: Abnorml menstrual pattern, Heat/cold intolerance, Polydipsia , Polyuria, Polyphagia Eyes: DENIES: Blurred vision, Diplopia, Eye inflammation, Eye pain, Vision loss , Photosensitivity, Double Vision Ears, nose, mouth, throat: DENIES: Tinnitus, Hearing loss, Vertigo, Nasal discharge, Oral lesions, Throat pain, Hoarseness, Ear Pain, Running Nose, Epistaxis, Sinus Pain, Toothache, Odynophagia Respiratory: DENIES: Apneas, Cough, Snoring, Wheezing, Hemoptysis, Sputum production, Shortness of breath Cardiovascular: DENIES: Chest pain, Palpitations, Syncope, Dyspnea on Exertion , PND, Lower Extremity Edema, Orthopnea, Claudication Gastrointestinal: DENIES: Abdominal pain, Black stools, Bloody stools, Constipation, Diarrhea, Nausea, Vomiting, Difficulty Swallowing, Anorexia Genitourinary: DENIES: Abnormal vaginal bleeding, Dysmenorrhea, Dyspareunia, Sexual dysfunction, Urinary frequency, Urinary incontinence, Urgency, Hematuria , Dysuria, Nocturia, Vaginal discharge Musculoskeletal: DENIES: Joint pain, Muscle aches, Stiffness, Joint Swelling, Back pain, Neck pain Integumentary: DENIES: Abnormal pigmentation, Pruritus, Rash, Nail changes, Breast masses, Breast skin changes, Nipple discharge Hematologic/lymphatic: DENIES: Bruising, Lymphadenopathy Immunologic/allergic: DENIES: Eczema, Urticaria Neurologic: COMPLAINS OF: Localized weakness, Paresthesias, Poor Balance (h/o falls and syncopal episodes prior to admission.) Psychiatric: DENIES: Anxiety, Confusion, Mood changes, Depression, Hallucinations, Agitation, Suicidal Ideation, Homicidal Ideation, Delusions Except as stated in HPI: all other systems reviewed are Neg Past Family Social History Allergies: Coded Allergies: No Known Allergies (Verified Allergy, Unknown, 09/27/17) Past Medical History Cervical spinal stenosis. Lumbar laminectomy with chronic right foot and leg weakness. Cholecystectomy. Diet controlled diabetes mellitus. Past Surgical History None prior to this admission Reported Medications Reported Meds & Active Scripts Active Reported Paxil (Paroxetine HCl) 10 Mg Tab 10 Mg PO DAILY Active Ordered Medications Current Medications Medications (Trade) Dose Ordered Sig/Elmer Route Start Time Stop Time Status Last Admin (Tylenol) 650 mg Q6H PRN PO 09/27/17 05:30 10/02/17 00:20 (Pepcid Inj) 20 mg Q12HR IV PUSH 09/27/17 09:00 10/02/17 08:56 (Zofran Inj) 4 mg Q6H PRN IV PUSH 09/27/17 05:30 (Restoril) 15 mg HS PRN PO 09/27/17 05:30 (Duoneb Neb) 1 ampule Q2HR NEB PRN INH 09/27/17 05:30 09/29/17 21:14 Miscellaneous Information 1 Q361D XX 09/27/17 05:30 (Chlorhexidine 2% Cloth) 3 pack Taper DAILY@04 TOP 09/28/17 04:00 09/24/18 03:59 (Chlorhexidine 2% Cloth) 3 pack UNSCH PRN TOP 09/27/17 05:30 (Lactulose Liq) 30 ml DAILY PRN PO 09/27/17 05:30 (Brethine Inj) 1 mg UNSCH PRN SQ 09/27/17 05:45 (Lovenox Inj) 40 mg Q24H SQ 10/01/17 09:00 10/02/17 08:56 (NS Flush) 2 ml UNSCH PRN IV FLUSH 09/28/17 14:00 (NS Flush) 2 ml BID IV FLUSH 09/28/17 21:00 10/02/17 08:53 (Mag-Al Plus Susp Liq) 30 ml Q6H PRN PO 09/28/17 14:00 (Phenergan Inj) 25 mg Q4H PRN IM 09/28/17 14:00 (Trandate Inj) 10 mg Q1H PRN IV PUSH 09/28/17 14:00 (Catapres) 0.1 mg Q6H PRN PO 09/28/17 14:00 (Morgan Akshat) 1 lozenge UNSCH PRN BUCCAL 09/28/17 14:00 (Ambien) 5 mg HS PRN PO 09/28/17 14:00 10/01/17 20:02 (Mally-Colace) 1 tab BID PO 09/28/17 21:00 10/02/17 08:56 (Milk Of Magnesia Liq) 30 ml Q12H PRN PO 09/28/17 14:00 (Senokot) 17.2 mg Q12H PRN PO 09/28/17 14:00 (Dulcolax Supp) 10 mg DAILY PRN RECTAL 09/28/17 14:00 (Dilaudid Pf Inj) 0.5 mg Q2H PRN IV 09/28/17 18:00 10/02/17 12:56 (Hycet 325-7.5 Mg Liq) 15 ml Q6H PRN PO 09/28/17 17:15 10/02/17 11:40 Phenylephrine HCl 40 mg/Dextrose 500 ml @ 30 mls/hr TITRATE PRN IV 09/29/17 08:00 (Paxil) 10 mg DAILY PO 10/01/17 12:15 10/02/17 08:56 (Pill Splitter) 1 ea UNSCH PRN OTHER 10/01/17 12:30 (Flexeril) 10 mg HS PRN PO 10/01/17 21:00 10/01/17 20:02 (Ativan Inj) 0.5 mg Q6HR PRN IV PUSH 10/01/17 18:00 10/01/17 20:02 Family History reviewed Social History She denies any alcohol or tobacco use. She is and her is here with her. Physical Exam Vital Signs Vital Signs Date Time Temp Pulse Resp B/P (MAP) Pulse Ox O2 Delivery O2 Flow Rate FiO2 10/02/17 10:00 75 10/02/17 08:00 64 10/02/17 08:00 100.0 64 14 125/62 (83) 95 10/02/17 07:00 99 Room Air 10/02/17 06:15 14 10/02/17 06:00 68 10/02/17 04:00 64 10/02/17 04:00 99.3 64 18 105/54 (71) 94 10/02/17 02:00 66 10/02/17 01:20 12 10/02/17 00:00 68 10/02/17 00:00 101.1 68 12 141/63 (89) 96 10/01/17 22:00 72 10/01/17 20:40 96 21 10/01/17 20:00 68 10/01/17 20:00 100.4 68 14 118/59 (78) 96 10/01/17 19:00 98 Room Air 10/01/17 18:00 72 10/01/17 16:00 64 10/01/17 16:00 100.2 64 9 121/59 (79) 94 10/01/17 14:00 74 10/01/17 12:15 11 10/01/17 12:00 68 10/01/17 12:00 100.4 68 12 121/59 (79) 94 Physical Exam GENERAL: This is a well-nourished, well-developed patient, in no apparent distress. SKIN: No rashes, ecchymoses or lesions. Cool and dry. HEAD: Atraumatic. Normocephalic. No temporal or scalp tenderness. EYES: Pupils equal round and reactive. Extraocular motions intact. No scleral icterus. No injection or drainage. ENT: Nose without bleeding, purulent drainage or septal hematoma. Throat without erythema, tonsillar hypertrophy or exudate. Uvula midline. Airway patent. NECK: Brace in place. CARDIOVASCULAR: Regular rate and rhythm without murmurs, gallops, or rubs. RESPIRATORY: Clear to auscultation. Breath sounds equal bilaterally. No wheezes , rales, or rhonchi. GASTROINTESTINAL: Abdomen soft, non-tender, nondistended. MUSCULOSKELETAL: Extremities without clubbing, cyanosis, or edema. NEUROLOGICAL: Awake and alert. AAOx3. Moves upper extremities to some extent: wiggles fingers, some forearm muscle flickers. Cannot flex elbows. LE wiggles toes, bends at knee appears to have better power in LE than UE. Psych cooperative IV line sites with no e.o infection. Laboratory Laboratory Tests Test 10/01/17 13:24 10/02/17 03:07 White Blood Count 8.6 8.6 Red Blood Count 3.15 2.99 Hemoglobin 10.6 10.3 Hematocrit 29.4 27.6 Mean Corpuscular Volume 93.4 92.6 Mean Corpuscular Hemoglobin 33.8 34.4 Mean Corpuscular Hemoglobin Concent 36.2 37.2 Red Cell Distribution Width 11.7 11.9 Platelet Count 190 185 Mean Platelet Volume 6.8 7.3 Neutrophils (%) (Auto) 64.1 67.2 Lymphocytes (%) (Auto) 23.0 20.1 Monocytes (%) (Auto) 12.4 12.2 Eosinophils (%) (Auto) 0.1 0.4 Basophils (%) (Auto) 0.4 0.1 Neutrophils # (Auto) 5.5 5.8 Lymphocytes # (Auto) 2.0 1.7 Monocytes # (Auto) 1.1 1.1 Eosinophils # (Auto) 0.0 0.0 Basophils # (Auto) 0.0 0.0 CBC Comment AUTO DIFF AUTO DIFF Differential Comment AUTO DIFF CONFIRMED AUTO DIFF CONFIRMED Blood Urea Nitrogen 11 11 Creatinine 0.64 0.48 Random Glucose 118 100 Calcium Level 8.2 8.4 Sodium Level 134 135 Potassium Level 4.0 3.8 Chloride Level 98 98 Carbon Dioxide Level 31.5 28.8 Anion Gap 5 8 Estimat Glomerular Filtration Rate 93 129 Platelet Estimate NORMAL Platelet Morphology Comment NORMAL Red Cell Morphology Comment NORMAL Date/Time Source Procedure Growth Status 09/30/17 14:55 Blood Peripheral Aerobic Blood Culture - Preliminary NO GROWTH IN 2 DAYS Resulted 09/30/17 14:55 Blood Peripheral Anaerobic Blood Culture - Preliminary NO GROWTH IN 2 DAYS Resulted 09/27/17 06:42 Urine Random Urine Urine Culture - Final NO GROWTH IN 48 HOURS. Complete Result Diagram: 10/02/17 0307 10/02/17 030 Imaging Last Impressions Upper Extremity Ultrasound 10/02/17 0000 Signed Impressions: Service Date/Time: Monday, October 02, 2017 16:01 - CONCLUSION: Normal examination. Nolberto Morales Jr., MD Chest X-Ray 10/02/17 0000 Signed Impressions: Service Date/Time: Monday, October 02, 2017 11:17 - CONCLUSION: Improved, lungs are clear Jovanny Pedraza MD FACR Cervical Spine X-Ray 09/28/17 0000 Signed Impressions: Service Date/Time: September 09:11 - CONCLUSION: 1. Postsurgical changes as above. Alex Donis MD Head CT 09/27/172 Signed Impressions: Service Date/Time: Wednesday, September 27, 2017 04:13 - CONCLUSION: 1. No acute intracranial abnormality. Keith Gutierres MD Cervical Spine CT [id number]/27/17401 Signed Impressions: Service Date/Time: Wednesday, September 27, 2017 04:13 - CONCLUSION: 1. No acute fracture or subluxation. 2. 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 Keith Gutierres MD Thoracic Spine MRI 09/27/17 0000 Signed Impressions: Service Date/Time: Wednesday, September 27, 2017 05:00 - CONCLUSION: 1. Degenerative spondylosis of the mid thoracic spine most prominently at T6-9. There is effacement of the left anterior lateral recess at T6-7. Otherwise, no significant central canal stenosis or cord signal abnormality. 1. Keith Gutierres MD Pelvis X-Ray 09/27/17 0000 Signed Impressions: Service Date/Time: Wednesday, September 27, 2017 04:00 - CONCLUSION: 1. No acute fracture or dislocation. Keith Gutierres MD Lumbar Spine MRI 09/27/17 0000 Signed Impressions: Service Date/Time: Wednesday, September 27, 2017 05:00 - CONCLUSION: 1. Multilevel degenerative spondylosis of the lumbar spine most prominently at L3- 4 with moderate to severe central canal narrowing to 6 mm. 2. Please see above for detailed description of each level. Keith Gutierres MD Cervical Spine MRI 09/27/17 0000 Signed Impressions: Service Date/Time: Wednesday, September 27, 2017 05:00 - CONCLUSION: 1. No acute fracture or subluxation. 2. Prominent posterior longitudinal ligament calcifications with resultant severe central canal narrowing at C3-6. There is flattening of cervical cord at these levels with very subtle cord signal abnormality at C4-5. Keith Gutierres MD Carotid Artery Ultrasound 09/27/17 0000 Signed Impressions: Service Date/Time: Wednesday, September 27, 2017 08:41 - CONCLUSION: No evidence of flow-limiting carotid stenosis. Quique Goodson MD Assessment and Plan Assessment and Plan Fevers in a spinal cord injury patient. DDx: rule out infections. Non infectious causes include DVT, inflammation from spinal cord injury, drug fever. Acute spinal cord injury related myelitis. Cervical spinal stenosis, Lumbar laminectomy with chronic right foot and leg weakness. Posterior cervical C3-6 autograft fusion; C3, C4, C5 and C6 decompressive laminectomies; posterior C3-6 lateral mass fixation; microsurgical technique (09/28/2017) Recs: Check CXR Check Procalcitonin Check Doppler UE if negative then check Doppler LE to r/o DVT as cause for fevers. Possible myelitis from spinal cord injury may be causing fevers. Clinically stable ok to observe off antibiotics. marcus patient and spouse marcus RN Lizy Shepard MD Oct 02, 2017 11:46
--- NOTE | 2017-10-02 16:53 | RADRPT ---
EXAM DATE/TIME: 10/02/2017 16:01 [facility] COMPARISON: No previous studies available for comparison. INDICATIONS : Bilateral arm swelling. MEDICAL HISTORY : Hypercholesterolemia. Arthritis. Gastroesophageal reflux disease. Diabetes. Anxiety. Paresthesia. Cla ustrophobia. SURGICAL HISTORY : Cholecystectomy.Hysterectomy. ENCOUNTER: Initial ACUITY: 1 day PAIN SCORE: 2/10 LOCATION: Bilateral arm. FINDINGS: RIGHT UPPER EXTREMITY: There is spontaneous flow documented in the brachial, basilic, cephalic, axillary, and subclavian vei ns. The vessels are compressible and augmentation response is documented. No filling defects are se en. The flow is phasic with respiration. Direction of flow in the jugular vein is caudal. LEFT UPPER EXTREMITY: There is spontaneous flow documented in the brachial, basilic, cephalic, axillary, and subclavian vei ns. The vessels are compressible and augmentation response is documented. No filling defects are se en. The flow is phasic with respiration. Direction of flow in the jugular vein is caudal. CONCLUSION: Normal examination. Nolberto Morales Jr., MD on October 02, 2017 at 16:49 Board Certified Radiologist. This report was verified electronically.
--- NOTE | 2017-10-02 20:12 | RADRPT ---
EXAM DATE/TIME: 10/02/2017 19:19 [facility] COMPARISON: No previous studies available for comparison. INDICATIONS : Bilateral leg swelling. MEDICAL HISTORY : Hypercholesterolemia. Arthritis. Gastroesophageal reflux disease. Diabetes. Anxiety. Paresthesia. Cla ustrophobia. SURGICAL HISTORY : Cholecystectomy.Hysterectomy. ENCOUNTER: Initial ACUITY: 1 day PAIN SCORE: 2/10 LOCATION: Bilateral legs. TECHNIQUE: Venous ultrasound of the left and right leg was performed from the inguinal ligament to the proximal calf. Real-time, color Doppler and spectral tracing, compression and augmentation techniques were us ed. FINDINGS: RIGHT LEG: There is normal compressibility of the deep venous system from the inguinal region to the proximal ca lf. No echogenic clot is seen in the lumen of the common femoral, femoral, popliteal, and posterior tibial veins. There is a normal response of the venous system to proximal and distal augmentation an d respiration. LEFT LEG: There is normal compressibility of the deep venous system from the inguinal region to the proximal ca lf. No echogenic clot is seen in the lumen of the common femoral, femoral, popliteal, and posterior tibial veins. There is a normal response of the venous system to proximal and distal augmentation an d respiration. CONCLUSION: 1. Negative for deep venous thrombosis bilateral lower extremity. Nolberto Benitez MD on October 02, 2017 at 20:09 Board Certified Radiologist. This report was verified electronically.
[2017-10-02] MEDS: LORazepam 2 MG/ML VIAL IV PUSH PRN (20:28)
[2017-10-02] MEDS: ZOLPIDEM TARTRATE 5 MG TAB PO PRN (22:02)
--- NOTE | 2017-10-02 23:05 | HHI.NSPN ---
History Chief Complaint: Severe weakness/paralysis s/p SCI. Interval History 66-year-old female status post C3-6 laminectomy and posterior stabilization for severe stenosis with myelopathy, spinal cord injury. Exam Results Vital Signs Date Time Temp Pulse Resp B/P (MAP) Pulse Ox O2 Delivery O2 Flow Rate FiO2 10/02/17 18:00 64 10/02/17 16:00 100.1 11 106/53 (70) 98 10/02/17 07:00 Room Air 10/01/17 20:40 21 10/01/17 10:14 3.00 Intake and Output 10/02/17 10/02/17 10/03/17 08:00 16:00 00:00 Intake Total 60 ml 600 ml Output Total 2200 ml 450 ml Balance -2140 ml 150 ml Physical Examination General: Pt awake and alert, sitting up in bed, in NAD with stable vital signs. appears comfortable in bed. Eyes: Pupils equal. Sclera anicteric. Abd: soft positive bs Skin: Wound with clean and dry [place] in place. Muscle: Dense paraparesis in upper extremities, gross movements left upper extremity. Moves bilateral lower extremities 3-/5 Neck: [place] cervical collar intact. Neuro: Pt awake and alert. Follows commands well. Speech clear and appropriate. Lab, Micro, Other Results Laboratory Tests Test 10/02/17 03:07 10/02/17 11:30 White Blood Count 8.6 TH/MM3 Red Blood Count 2.99 MIL/MM3 Hemoglobin 10.3 GM/DL Hematocrit 27.6 % Mean Corpuscular Volume 92.6 FL Mean Corpuscular Hemoglobin 34.4 PG Mean Corpuscular Hemoglobin Concent 37.2 % Red Cell Distribution Width 11.9 % Platelet Count 185 TH/MM3 Mean Platelet Volume 7.3 FL Neutrophils (%) (Auto) 67.2 % Lymphocytes (%) (Auto) 20.1 % Monocytes (%) (Auto) 12.2 % Eosinophils (%) (Auto) 0.4 % Basophils (%) (Auto) 0.1 % Neutrophils # (Auto) 5.8 TH/MM3 Lymphocytes # (Auto) 1.7 TH/MM3 Monocytes # (Auto) 1.1 TH/MM3 Eosinophils # (Auto) 0.0 TH/MM3 Basophils # (Auto) 0.0 TH/MM3 CBC Comment AUTO DIFF Differential Comment AUTO DIFF CONFIRMED Platelet Estimate NORMAL Platelet Morphology Comment NORMAL Red Cell Morphology Comment NORMAL Blood Urea Nitrogen 11 MG/DL Creatinine 0.48 MG/DL Random Glucose 100 MG/DL Calcium Level 8.4 MG/DL Sodium Level 135 MEQ/L Potassium Level 3.8 MEQ/L Chloride Level 98 MEQ/L Carbon Dioxide Level 28.8 MEQ/L Anion Gap 8 MEQ/L Estimat Glomerular Filtration Rate 129 ML/MIN Procalcitonin 0.13 ng/mL Medical Decision Making Impression and Plan Impression: 1. Stable examination postoperative period Plan: Patient is stable for transfer to the regular floor from neurosurgical standpoint. Would benefit from inpatient rehabilitation-plans in progress. Continue cervical collar Okay for Lovenox from neurosurgical standpoint Celestino Page MD Oct 02, 2017 23:05
[2017-10-03] VITALS: BP 118/64; PULSE 75; RESP 18; TEMP 97.1; O2SAT 97
[2017-10-03] MEDS: CHLORHEXIDINE GLUCONATE 2 % 1 PACK (2 CLOTHS) TOP SCH ×2 (03:57→19:51)
[2017-10-03 04:03] VITALS: BP 143/62; PULSE 71; RESP 16; TEMP 98.4; O2SAT 97
[2017-10-03] MEDS: ENOXAPARIN SODIUM 40 MG/0.4 ML SYRINGE SQ SCH (07:49)
[2017-10-03] MEDS: PARoxetine HCL 20 MG TAB PO SCH (07:49)
[2017-10-03] MEDS: SODIUM CHLORIDE 0.9% FLUSH 10 ML FLUSH IV FLUSH SCH ×2 (07:49→20:59)
[2017-10-03] MEDS: FAMOTIDINE 20 MG/2 ML VIAL IV PUSH SCH ×2 (07:49→20:58)
[2017-10-03] MEDS: DOCUSATE SODIUM 50 MG/SENNA 8.6 MG TAB PO SCH ×2 (07:49→19:51)
[2017-10-03 08:22] VITALS: BP 122/74; PULSE 66; RESP 20; TEMP 98.1; O2SAT 96
[2017-10-03] MEDS: ACETAMINOPHEN 325MG/HYDROcodone 7.5MG/15ML UDC PO PRN ×2 (08:48→16:41)
[2017-10-03 12:00] VITALS: BP 95/51; PULSE 64; RESP 20; TEMP 98.4; O2SAT 96
--- NOTE | 2017-10-03 12:32 | HHI.PR ---
Subjective Remarks in chair. felt nauseated with some dizziness earlier. better now. constipated Objective Vitals c collar heart reg lung cta abd s/nt ext no edema Vital Signs Date Time Temp Pulse Resp B/P (MAP) Pulse Ox O2 Delivery O2 Flow Rate FiO2 10/03/17 10:49 16 10/03/17 08:22 98.1 66 20 122/74 (90) 96 10/03/17 04:03 98.4 71 16 143/62 (89) 97 10/03/17 00:00 97.1 75 18 118/64 (82) 97 10/02/17 20:00 98.4 63 18 120/56 (77) 94 10/02/17 18:00 64 10/02/17 16:00 100.1 60 11 106/53 (70) 98 10/02/17 16:00 64 10/02/17 14:00 66 10/03/17 10/03/17 10/04/17 15:00 23:00 07:00 # Voids 1 Result Diagram: 10/02/17 0307 10/02/17 0307 Imaging Last Impressions Chest X-Ray 09/30/17 0000 Signed Impressions: Service Date/Time: Saturday, September 30, 2017 11:38 - CONCLUSION: Normal examination. Guy Funes MD Cervical Spine X-Ray 09/28/17 0000 Signed Impressions: Service Date/Time: September 09:11 - CONCLUSION: 1. Postsurgical changes as above. Alex Donis MD Head CT [id number]/17401 Signed Impressions: Service Date/Time: Wednesday, September 27, 2017 04:13 - CONCLUSION: 1. No acute intracranial abnormality. Keith Gutierres MD Cervical Spine CT [id number]/[id number] Signed Impressions: Service Date/Time: Wednesday, September 27, 2017 04:13 - CONCLUSION: 1. No acute fracture or subluxation. 2. 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 Keith Gutierres MD Thoracic Spine MRI 09/27/17 0000 Signed Impressions: Service Date/Time: Wednesday, September 27, 2017 05:00 - CONCLUSION: 1. Degenerative spondylosis of the mid thoracic spine most prominently at T6-9. There is effacement of the left anterior lateral recess at T6-7. Otherwise, no significant central canal stenosis or cord signal abnormality. 1. Keith Gutierres MD Pelvis X-Ray 09/27/17 0000 Signed Impressions: Service Date/Time: Wednesday, September 27, 2017 04:00 - CONCLUSION: 1. No acute fracture or dislocation. Keith Gutierres MD Lumbar Spine MRI 09/27/17 0000 Signed Impressions: Service Date/Time: Wednesday, September 27, 2017 05:00 - CONCLUSION: 1. Multilevel degenerative spondylosis of the lumbar spine most prominently at L3- 4 with moderate to severe central canal narrowing to 6 mm. 2. Please see above for detailed description of each level. Keith Gutierres MD Cervical Spine MRI 09/27/17 0000 Signed Impressions: Service Date/Time: Wednesday, September 27, 2017 05:00 - CONCLUSION: 1. No acute fracture or subluxation. 2. Prominent posterior longitudinal ligament calcifications with resultant severe central canal narrowing at C3-6. There is flattening of cervical cord at these levels with very subtle cord signal abnormality at C4-5. Keith Gutierres MD Carotid Artery Ultrasound 09/27/17 0000 Signed Impressions: Service Date/Time: Wednesday, September 27, 2017 08:41 - CONCLUSION: No evidence of flow-limiting carotid stenosis. Quique Goodson MD Procedures S/P posterior cervical C3-6 autograft fusion; C3, C4, C5 and C6 decompressive laminectomies; posterior C3-6 lateral mass fixation on 09/28/[address] Chinchilla. 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 - MRI cervical spine (09/27) revealed No acute fracture or subluxation. Prominent posterior longitudinal ligament calcifications with resultant severe central canal narrowing at C3-6. There is flattening of cervical cord at these levels with very subtle cord signal abnormality at C4-5. - MRI thoracic spine (09/27) degenerative spondylosis of the mid thoracic spine most prominently at T6-9. There is effacement of the left anterior lateral recess T6-7. Otherwise, no significant central canal stenosis or cord signal abnormality. - Patient is S/P posterior cervical C3-6 autograft fusion; C3, C4, C5 and C6 decompressive laminectomies; posterior C3-6 lateral mass fixation on 09/28/[address] Chinchilla. - PT and OT eval and treat as tolerated will plan to dc to rehab/[facility] soon when ok with nsg. Hypotension- Resolved Spinal shock with associated hypotension and bradycardia resolved - Initially patient was admitted to ICU and given IV fluid hydration and vasopressors. Patient now more stable and we have been consult to assume care. - Blood cultures NGTD - urine cultures no growth Syncope - troponin < 0.02 - Telemetry - 2-D echo 09/28/17 The left ventricular systolic function is low normal with an estimated ejection fraction in the range of 50-55%. [id number] mitral valve regurgitation. There is trace tricuspid valve regurgitation. The pulmonary valve is not well visualized. technically difficult study - Ultrasound carotids (09/27) No evidence of flow-limiting carotid stenosis Hyperglycemia - Start low SSI Fever unclear etiology. ?surgical site inflammation. no fever since 4pm yesterday..monitor blood cx ngtd WBC 15.3 (3/2) -> 8.3 (3/3) -> 8.6 (3/4) CXR 09/30 normal exam UA 09/30 no culture indicated IS Q1H while awake surgical dressing dry and intact ID was consulted benitez removed 10/02 Anxiety Paxil restarted Ativan IV as needed DVT GI prophylaxis - Teds SCDs - Lovenox - Pepcid (2) Syncope and collapse ICD Codes: R55 - Syncope and collapse Status: Acute Plan: Syncope - troponin < 0.02 - Telemetry - 2-D echo 09/28/17 The left ventricular systolic function is low normal with an estimated ejection fraction in the range of 50-55%. [id number] mitral valve regurgitation. There is trace tricuspid valve regurgitation. The pulmonary valve is not well visualized. technically difficult study - Ultrasound carotids (2/) No evidence of flow-limiting carotid stenosis Problem Qualifiers (1) Cervical spinal cord injury: Qualified Codes: S14.109A - Unspecified injury at unspecified level of cervical spinal cord, initial encounter Zay Contreras MD Oct 03, 2017 12:32
[2017-10-03] MEDS ORDERED: LACTULOSE SYRUP 20 GM/30 ML CUP PO ONE (13:00)
[2017-10-03] MEDS: POLYETHYLENE GLYCOL 17 GM PKG PO SCH (13:09)
[2017-10-03 16:00] VITALS: BP 113/56; PULSE 74; RESP 20; TEMP 98.7; O2SAT 96
[2017-10-03] MEDS: ZOLPIDEM TARTRATE 5 MG TAB PO PRN (20:58)
[2017-10-03] MEDS: LORazepam 2 MG/ML VIAL IV PUSH PRN (20:59)
[2017-10-03 21:00] VITALS: BP 102/55; PULSE 67; RESP 18; TEMP 98.3; O2SAT 96
[2017-10-04 01:47] VITALS: BP 114/56; PULSE 67; RESP 18; TEMP 98.5; O2SAT 95
[2017-10-04] MEDS: ACETAMINOPHEN 325MG/HYDROcodone 7.5MG/15ML UDC PO PRN ×3 (03:38→18:28)
[2017-10-04 06:09] VITALS: BP 106/53; PULSE 67; RESP 18; TEMP 98.4; O2SAT 92
[2017-10-04 08:21] VITALS: BP 113/56; PULSE 62; RESP 18; TEMP 98; O2SAT 94
[2017-10-04] MEDS: SODIUM CHLORIDE 0.9% FLUSH 10 ML FLUSH IV FLUSH SCH ×2 (08:59→20:01)
[2017-10-04] MEDS: PARoxetine HCL 20 MG TAB PO SCH (09:00)
[2017-10-04] MEDS: DOCUSATE SODIUM 50 MG/SENNA 8.6 MG TAB PO SCH ×2 (09:00→20:01)
[2017-10-04] MEDS: POLYETHYLENE GLYCOL 17 GM PKG PO SCH (09:00)
[2017-10-04] MEDS: ENOXAPARIN SODIUM 40 MG/0.4 ML SYRINGE SQ SCH (09:01)
[2017-10-04] MEDS: FAMOTIDINE 20 MG/2 ML VIAL IV PUSH SCH (09:13)
--- NOTE | 2017-10-04 10:02 | HHI.PR ---
Addendum to Inpatient Note Addendum Reason: Additional Documentation Additional Information dw No fevers No ID needs at present time. Will sign off please call back if any change in clinical condition or questions. Lizy Kohler MD Oct 04, 2017 10:02
--- NOTE | 2017-10-04 10:21 | HHI.PR ---
Subjective Remarks doing ok. bowels moving. c/o of some dysuria since benitez removed. Objective Vitals heart reg lung cta abd s/nt ext weak reynaldo hand rn cardiac cath c collar Vital Signs Date Time Temp Pulse Resp B/P (MAP) Pulse Ox O2 Delivery O2 Flow Rate FiO2 10/04/17 08:21 98.0 62 18 113/56 (75) 94 10/04/17 06:09 98.4 67 18 106/53 (70) 92 10/04/17 01:47 98.5 67 18 114/56 (75) 95 10/03/17 21:00 98.3 67 18 102/55 (71) 96 10/03/17 17:25 16 10/03/17 16:00 98.7 74 20 113/56 (75) 96 10/03/17 12:00 98.4 64 20 95/51 (66) 96 Result Diagram: 10/02/17 0307 10/02/17 0307 Imaging Last Impressions Chest X-Ray 09/30/17 0000 Signed Impressions: Service Date/Time: Saturday, September 30, 2017 11:38 - CONCLUSION: Normal examination. Guy Funes MD Cervical Spine X-Ray 09/28/17 0000 Signed Impressions: Service Date/Time: September 09:11 - CONCLUSION: 1. Postsurgical changes as above. Alex Donis MD Head CT 09/27/17 0402 Signed Impressions: Service Date/Time: Wednesday, September 27, 2017 04:13 - CONCLUSION: 1. No acute intracranial abnormality. Keith Gutierres MD Cervical Spine CT 09/27/17 0402 Signed Impressions: Service Date/Time: Wednesday, September 27, 2017 04:13 - CONCLUSION: 1. No acute fracture or subluxation. 2. 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 Keith Gutierres MD Thoracic Spine MRI 09/27/17 0000 Signed Impressions: Service Date/Time: Wednesday, September 27, 2017 05:00 - CONCLUSION: 1. Degenerative spondylosis of the mid thoracic spine most prominently at T6-9. There is effacement of the left anterior lateral recess at T6-7. Otherwise, no significant central canal stenosis or cord signal abnormality. 1. Keith Gutierres MD Pelvis X-Ray 09/27/17 0000 Signed Impressions: Service Date/Time: Wednesday, September 27, 2017 04:00 - CONCLUSION: 1. No acute fracture or dislocation. Keith Gutierres MD Lumbar Spine MRI 09/27/17 0000 Signed Impressions: Service Date/Time: Wednesday, September 27, 2017 05:00 - CONCLUSION: 1. Multilevel degenerative spondylosis of the lumbar spine most prominently at L3- 4 with moderate to severe central canal narrowing to 6 mm. 2. Please see above for detailed description of each level. Keith Gutierres MD Cervical Spine MRI 09/27/17 0000 Signed Impressions: Service Date/Time: Wednesday, September 27, 2017 05:00 - CONCLUSION: 1. No acute fracture or subluxation. 2. Prominent posterior longitudinal ligament calcifications with resultant severe central canal narrowing at C3-6. There is flattening of cervical cord at these levels with very subtle cord signal abnormality at C4-5. Keith Gutierres MD Carotid Artery Ultrasound 09/27/17 0000 Signed Impressions: Service Date/Time: Wednesday, September 27, 2017 08:41 - CONCLUSION: No evidence of flow-limiting carotid stenosis. Quique Goodson MD Procedures S/P posterior cervical C3-6 autograft fusion; C3, C4, C5 and C6 decompressive laminectomies; posterior C3-6 lateral mass fixation on 09/28/[address] Chinchilla. 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 - MRI cervical spine (09/27) revealed No acute fracture or subluxation. Prominent posterior longitudinal ligament calcifications with resultant severe central canal narrowing at C3-6. There is flattening of cervical cord at these levels with very subtle cord signal abnormality at C4-5. - MRI thoracic spine (09/27) degenerative spondylosis of the mid thoracic spine most prominently at T6-9. There is effacement of the left anterior lateral recess T6-7. Otherwise, no significant central canal stenosis or cord signal abnormality. - Patient is S/P posterior cervical C3-6 autograft fusion; C3, C4, C5 and C6 decompressive laminectomies; posterior C3-6 lateral mass fixation on 09/28/[address] Chinchilla. - PT and OT eval and treat as tolerated awaiting disposition to rehab when arrangements made. check u/a. rx dysuria updated family at bedside. Hypotension- Resolved Spinal shock with associated hypotension and bradycardia resolved - Initially patient was admitted to ICU and given IV fluid hydration and vasopressors. Patient now more stable and we have been consult to assume care. - Blood cultures NGTD - urine cultures no growth Syncope - troponin < 0.02 - Telemetry - 2-D echo 09/28/17 The left ventricular systolic function is low normal with an estimated ejection fraction in the range of 50-55%. Glpui-es-cjgm mitral valve regurgitation. There is trace tricuspid valve regurgitation. The pulmonary valve is not well visualized. technically difficult study - Ultrasound carotids (09/27) No evidence of flow-limiting carotid stenosis Hyperglycemia - Start low SSI Fever unclear etiology. ?surgical site inflammation. no fever since 4pm yesterday..monitor blood cx ngtd WBC 15.3 (3/2) -> 8.3 (3/3) -> 8.6 (3/4) CXR 3/ normal exam UA 3/3 no culture indicated IS Q1H while awake surgical dressing dry and intact ID was consulted benitez removed / Anxiety Paxil restarted Ativan IV as needed DVT GI prophylaxis - Teds SCDs - Lovenox - Pepcid (2) Syncope and collapse ICD Codes: R55 - Syncope and collapse Status: Acute Plan: Syncope - troponin < 0.02 - Telemetry - 2-D echo 09/28/17 The left ventricular systolic function is low normal with an estimated ejection fraction in the range of 50-55%. Araff-yh-kjym mitral valve regurgitation. There is trace tricuspid valve regurgitation. The pulmonary valve is not well visualized. technically difficult study - Ultrasound carotids (09/27) No evidence of flow-limiting carotid stenosis Problem Qualifiers (1) Cervical spinal cord injury: Qualified Codes: S14.109A - Unspecified injury at unspecified level of cervical spinal cord, initial encounter Zay Contreras MD Oct 04, 2017 10:21
[2017-10-04 11:07] LABS: BACTERIA, URINE MANY /hpf; BILIRUBIN, URINE NEG (NEG); BLOOD, URINE MOD (NEG); GLUCOSE,URINE NEG (NEG); KETONE, URINE NEG (NEG); NITRITE,URINE NEG (NEG); URINE COLOR YELLOW (YELLW/STRAW); URINE LEUKOCYTE ESTERASE LARGE (NEG); WHITE BLOOD CELL CLUMPS MANY
[2017-10-04 12:02] VITALS: BP 92/46; PULSE 63; RESP 18; TEMP 98.3; O2SAT 94
[2017-10-04] MEDS: PHENAZOPYRIDINE HCL 200 MG TAB PO SCH ×2 (14:22→22:12)
[2017-10-04] MEDS: cefTRIAXone INJ 1,000 MG in SODIUM CHLORIDE 0.9% INJ 100 ML IV SCH (15:01)
[2017-10-04 16:19] VITALS: BP 132/60; PULSE 63; RESP 18; TEMP 97.9; O2SAT 95
--- NOTE | 2017-10-04 16:35 | HHI.NSPN ---
(Souleymane Galindoalexandra DAVIDSON) History Chief Complaint: Numbness and weakness to upper extremities, some neck pain. (Souleymane Galindoalexandra DAVIDSON) Interval History This is a 66 year-old female who this morning had a syncopalepisode while she was in the bathroom urinating. She felt light-headed and dizzy prior to this and fell and lost consciousness. The next thing she remembers waking up with her screaming at her and slapping her face and she was unable to move her arms or legs with loss of complete sensation in the whole body. She also relates that she was having a difficult time exchanging air and the relates that she was very pale. Subsequently, her sensation started to improve more so in the legs than arms along with movement, although she still has numbness in her upper extremities and inability to move her upper extremities, but the lower extremity strength is improving. She was bradycardic and hypotensive en route which has improved since her admission, but she has also been placed on phenylephrine IV drip to provide hemodynamic support. She relates that she has had two syncopal episodes, one a couple years ago and one as a child, although does not relate having had any workup for this. She denies any chest pain or shortness of breath. She had a lumbar laminectomy by Dr. 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 She relate the history of cervical stenosis in the past, but this was treated conservatively. Trauma workup on presentation this morning as a trauma alert included a CT scan of the head which was negative for any intracranial abnormality. CT of the cervical spine reveals significant ossification of the posterior longitudinal ligament extending from the C3-C5 levels along with some C7-T2 ossification. Also, there is significant stenosis in the cervical spine from this. No fractures are noted. She subsequently has also had an MRI scan of the cervical and thoracic spine which reveals severe stenosis from C3-C7 levels with cord compression and cord contusion injury at the C4-5 level. Pelvis x-rays are negative. She has been admitted to the intensive care unit for close neurologic monitoring and hemodynamic support with IV fluids and vasopressors on board. She also initially received Decadron. 09/29/17: Pt underwent a posterior cervical C3-6 autograft fusion; C3, C4, C5 and C6 decompressive laminectomies; posterior C3-6 lateral mass fixation on . She complains of neck pain but doing well. She states some pain in shoulders. She denies radiculopathy in UEs. weakness in UEs more than LEs consistent with central spinal cord injury. 09/30/17: doing well, no acute events overnight, stable weakness in extremities. 10/01: no new neuro changes, nrs reports pt very anxious when trying to mobilize. she reportedly takes Paxil at home and would like this to be restarted 10/02: 66-year-old female status post C3-6 laminectomy and posterior stabilization for severe stenosis with myelopathy, spinal cord injury. 10/04: The patient is awake and alert talking on the phone when seen this afternoon. Her is present and holding the phone for her. She is awake and alert and says she doesn't feel as good as yesterday due to a UTI. She does say she has some neck pain and has decreased sensation and ability to move the upper extremities. She denies any pain to the upper extremities. She says the lower extremities are good and she denies any pain, numbness, tingling or weakness to them. She denies any saddle anaesthesia or difficulty with bowel or bladder control although she does say she is constipated. She has no evident sensorimotor deficits to the lower extremities but has decreased sensation to the upper extremities with decreased motor strength right worse than left upon examination. (Tra Galindo) Exam Results 10/02/17 10/02/17 10/03/17 10/03/17 10/04/17 10/04/17 06: 18:00 06:00 18:00 06:00 18:00 Intake Total 3727 ml 600 ml 480 ml 60 ml 560 ml Output Total 2200 ml 450 ml 1350 ml 200 ml Balance 1527 ml 150 ml -1350 ml 280 ml 60 ml 560 ml Intake Oral 60 ml 600 ml 480 ml 60 ml 560 ml IV Total 3667 ml Output Urine Total 2200 ml 450 ml 1350 ml 200 ml Bladder Scan Volume Amount 653 ml # Voids 5 4 9 # Bowel Movements 0 0 2 1 2 Vital Signs Date Time Temp Pulse Resp B/P (MAP) Pulse Ox O2 Delivery O2 Flow Rate FiO2 10/04/17 12:02 98.3 63 18 92/46 (61) 94 10/04/17 10:50 20 10/04/17 08:21 98.0 62 18 113/56 (75) 94 10/04/17 06:09 98.4 67 18 106/53 (70) 92 10/04/17 01:47 98.5 67 18 114/56 (75) 95 10/03/17 21:00 98.3 67 18 102/55 (71) 96 10/03/17 16:00 98.7 74 20 113/56 (75) 96 10/03/17 12:00 98.4 64 20 95/51 (66) 96 10/03/17 08:22 98.1 66 20 122/74 (90) 96 10/03/17 04:03 98.4 71 16 143/62 (89) 97 10/03/17 00:00 97.1 75 18 118/64 (82) 97 10/02/17 20:00 98.4 63 18 120/56 (77) 94 10/02/17 18:00 64 10/02/17 16:00 100.1 60 11 106/53 (70) 98 10/02/17 16:00 64 10/02/17 14:00 66 10/02/17 12:00 62 10/02/17 12:00 100.0 62 9 109/53 (71) 98 10/02/17 10:00 75 10/02/17 08:00 64 10/02/17 08:00 100.0 64 14 125/62 (83) 95 10/02/17 07:00 99 Room Air 10/02/17 06:15 14 10/02/17 06:00 68 10/02/17 04:00 64 10/02/17 04:00 99.3 64 18 105/54 (71) 94 10/02/17 02:00 66 10/02/17 01:20 12 10/02/17 00:00 68 10/02/17 00:00 101.1 68 12 141/63 (89) 96 10/01/17 22:00 72 10/01/17 20:40 96 21 10/01/17 20:00 68 10/01/17 20:00 100.4 68 14 118/59 (78) 96 10/01/17 19:00 98 Room Air 10/01/17 18:00 72 (Tra Galindo) Physical Examination GENERAL: Awake & alert, sitting in bed talking on the phone being held by her . Her affect is normal and she readily interacts. She is not in any apparent distress. HEENT: Normocephalic, atraumatic. NECK: Sterling J cervical collar in place. Midline cervical spine moderately TTP. Dressing dry & intact over surgical incision w/o any evident shadowing. MUSCULOSKELETAL: Moves BLE spontaneously and to command. Slight movement of BUE to command. Extremities NTTP. No evident clubbing or deformity. NEUROLOGICAL: AAOx3. Speech clear & appropriate. Follows simple commands w/o difficulty. Decreased sensation to light touch to the upper extremities but intact to the lower extremities. Trace movement of RUE to command. Able to move LUE slightly and gives partial hand squeeze w/left hand to command. Motor strength is 4+ to 5/5 to all major flexion & extension muscle groups of the lower extremities. (Tra Galindo) Lab, Micro, Other Results Recent Impressions Upper Extremity Ultrasound 10/02/17 0000 Signed Impressions: Service Date/Time: Monday, October 02, 2017 16:01 - CONCLUSION: Normal examination. Nolberto Morales Jr., MD Lower Extremity Ultrasound 10/02/17 0000 Signed Impressions: Service Date/Time: Monday, October 02, 2017 19:19 - CONCLUSION: 1. Negative for deep venous thrombosis bilateral lower extremity. Nolberto Benitez MD Chest X-Ray 10/02/17 0000 Signed Impressions: Service Date/Time: Monday, October 02, 2017 11:17 - CONCLUSION: Improved, lungs are clear Jovanny Pedraza MD FACR Laboratory Tests Test 10/02/17 03:07 10/02/17 11:30 10/04/17 10:35 White Blood Count 8.6 TH/MM3 Red Blood Count 2.99 MIL/MM3 Hemoglobin 10.3 GM/DL Hematocrit 27.6 % Mean Corpuscular Volume 92.6 FL Mean Corpuscular Hemoglobin 34.4 PG Mean Corpuscular Hemoglobin Concent 37.2 % Red Cell Distribution Width 11.9 % Platelet Count 185 TH/MM3 Mean Platelet Volume 7.3 FL Neutrophils (%) (Auto) 67.2 % Lymphocytes (%) (Auto) 20.1 % Monocytes (%) (Auto) 12.2 % Eosinophils (%) (Auto) 0.4 % Basophils (%) (Auto) 0.1 % Neutrophils # (Auto) 5.8 TH/MM3 Lymphocytes # (Auto) 1.7 TH/MM3 Monocytes # (Auto) 1.1 TH/MM3 Eosinophils # (Auto) 0.0 TH/MM3 Basophils # (Auto) 0.0 TH/MM3 CBC Comment AUTO DIFF Differential Comment AUTO DIFF CONFIRMED Platelet Estimate NORMAL Platelet Morphology Comment NORMAL Red Cell Morphology Comment NORMAL Blood Urea Nitrogen 11 MG/DL Creatinine 0.48 MG/DL Random Glucose 100 MG/DL Calcium Level 8.4 MG/DL Sodium Level 135 MEQ/L Potassium Level 3.8 MEQ/L Chloride Level 98 MEQ/L Carbon Dioxide Level 28.8 MEQ/L Anion Gap 8 MEQ/L Estimat Glomerular Filtration Rate 129 ML/MIN Procalcitonin 0.13 ng/mL Urine Color YELLOW Urine Turbidity CLOUDY Urine pH 7.0 Urine Specific [place] 1.016 Urine Protein 30 mg/dL Urine Glucose (UA) NEG mg/dL Urine Ketones NEG mg/dL Urine Occult Blood MOD Urine Nitrite NEG Urine Bilirubin NEG Urine Urobilinogen LESS THAN 2.0 MG/DL Urine Leukocyte Esterase LARGE Urine RBC 54 /hpf Urine WBC /hpf Urine WBC Clumps MANY Urine Bacteria MANY /hpf Microscopic Urinalysis Comment CULTURE INDICATED (Tra Galindo) Medical Decision Making Impression and Plan Impression: 66 y/o female 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 She has multi-level cervical stenosis in particular from C3-C6 level predominantly from osteophyte posterior longitudinal ligament along with disk osteophyte complexes with spinal cord compression and contusion. s/p posterior cervical C3-6 autograft fusion; C3, C4, C5 and C6 decompressive laminectomies; posterior C3-6 lateral mass fixation on 09/28/17 The patient is doing well. She continues to have the dense paraparesis to the upper extremities with the right being worse. She has weak gross motor movement to the LUE and trace movement of the RUE. Plan: Would benefit from inpatient rehabilitation-plans in progress. Continue cervical collar Okay for Lovenox from neurosurgical standpoint Continue with incision care jamie need to be removed 12 days post op. Continue with Decadron Continue with PT and OT rehab efforts (Tra Galindo) Attending Statement The exam, history, and the medical decision-making described in the above note were completed with the assistance of the mid-level provider. I reviewed and agree with the findings presented. I attest that I had a [id number] encounter with the patient on the same day, and personally performed and documented my assessment and findings in the medical record. Staple exam consistent with central cord injury. Stable for inpatient rehabilitation (Celestino Page MD) Tra Galindo Oct 04, 2017 16:35 Celestino Page MD Oct 04, 2017 20:56
[2017-10-04 20:00] VITALS: BP 109/53; PULSE 64; RESP 19; TEMP 98.5; O2SAT 94
[2017-10-05] VITALS: BP 125/56; PULSE 66; RESP 19; TEMP 97.9; O2SAT 94
[2017-10-05] MEDS: ZOLPIDEM TARTRATE 5 MG TAB PO PRN (02:10)
[2017-10-05] MEDS: LORazepam 2 MG/ML VIAL IV PUSH PRN (02:10)
[2017-10-05 04:00] VITALS: BP 145/65; PULSE 62; RESP 18; TEMP 97.9; O2SAT 98
[2017-10-05] MEDS: CHLORHEXIDINE GLUCONATE 2 % 1 PACK (2 CLOTHS) TOP SCH (04:12)
[2017-10-05] MEDS: PHENAZOPYRIDINE HCL 200 MG TAB PO SCH ×2 (05:58→14:40)
[2017-10-05] MEDS: HYDROmorphone HCL PF 2 MG/ML VIAL IV PRN (07:08)
[2017-10-05 08:12] VITALS: BP 140/63; PULSE 63; RESP 20; TEMP 98.2; O2SAT 96
[2017-10-05] MEDS: PARoxetine HCL 20 MG TAB PO SCH (08:43)
[2017-10-05] MEDS: DOCUSATE SODIUM 50 MG/SENNA 8.6 MG TAB PO SCH (08:43)
[2017-10-05] MEDS: SODIUM CHLORIDE 0.9% FLUSH 10 ML FLUSH IV FLUSH SCH (08:44)
[2017-10-05] MEDS: ENOXAPARIN SODIUM 40 MG/0.4 ML SYRINGE SQ SCH (08:44)
[2017-10-05] MEDS: POLYETHYLENE GLYCOL 17 GM PKG PO SCH (08:44)
[2017-10-05] MEDS ORDERED: HYDR-3288 PO (11:26)
[2017-10-05] MEDS ORDERED: PHEN-537 PO (11:26)
[2017-10-05] MEDS ORDERED: LEVA250T14 PO (11:26)
--- NOTE | 2017-10-05 11:27 | HHI.DCPOC ---
Discharge Care Plan Diagnosis: (1) UTI (urinary tract infection) (2) Syncope and collapse (3) Cervical spinal cord injury Goals to Promote Your Health * To prevent worsening of your condition and complications * To maintain your health at the optimal level Directions to Meet Your Goals Take your medications as prescribed Follow your dietary instruction Follow activity as directed Keep your appointments as scheduled Take your immunizations and boosters as scheduled If your symptoms worsen call your PCP, if no PCP go to Urgent Care Center or Emergency Room Smoking is Dangerous to Your Health. Avoid second hand smoke Call the 24-hour hour crisis hotline for domestic abuse at Zay Contreras MD Oct 05, 2017 11:27
[2017-10-05] MEDS ORDERED: ACETAMINOPHEN/HYDROcodone 325 MG/7.5 MG TAB PO PRN (11:30)
--- NOTE | 2017-10-05 11:34 | HHI.DS ---
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 Chinchilla. 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 - MRI cervical spine (09/27) revealed No acute fracture or subluxation. Prominent posterior longitudinal ligament calcifications with resultant severe central canal narrowing at C3-6. There is flattening of cervical cord at these levels with very subtle cord signal abnormality at C4-5. - MRI thoracic spine (09/27) degenerative spondylosis of the mid thoracic spine most prominently at T6-9. There is effacement of the left anterior lateral recess T6-7. Otherwise, no significant central canal stenosis or cord signal abnormality. - Patient is S/P posterior cervical C3-6 autograft fusion; C3, C4, C5 and C6 decompressive laminectomies; posterior C3-6 lateral mass fixation on 09/28/[address] Chinchilla. - PT and OT followed patient - Cont c collar and remove jamie 12days post op per nsg -Transfer to [facility] -After benitez removed pt c/o severe dysuria. u/a consistent with uti. culture pending. will give levaquin for now but might need changed at [facility] based on cx. Hypotension- Resolved Spinal shock with associated hypotension and bradycardia resolved - Initially patient was admitted to ICU and given IV fluid hydration and vasopressors. Syncope - troponin < 0.02 - Telemetry - 2-D echo 09/28/17 The left ventricular systolic function is low normal with an estimated ejection fraction in the range of 50-55%. [id number] mitral valve regurgitation. There is trace tricuspid valve regurgitation. The pulmonary valve is not well visualized. technically difficult study - Ultrasound carotids (09/27) No evidence of flow-limiting carotid stenosis Fever unclear etiology. surgical site inflammation was suspected by ID Anxiety Paxil restarted Pt Condition on Discharge: Stable Discharge Disposition: Rehab Inpatient Discharge Instructions DIET: Follow Instructions for: As Tolerated, No Restrictions Activities you can perform: Regular-No Restrictions New Medications: Hydrocodone-Acetaminophen ([place]) 7.5-325 mg Tab 1 TAB PO Q4H PRN for PAIN, #30 TAB 0 Refills Levofloxacin (Levaquin) 250 Mg Tablet 250 MG PO DAILY for Infection for 7 Days, #7 TAB 0 Refills Phenazopyridine (Phenazopyridine) 200 Mg Tab 200 MG PO Q8HR for Dysuria for 5 Days, TAB Continued Medications: Paroxetine (Paxil) 10 Mg Tab 10 MG PO DAILY, #30 TAB 0 Refills Zay Contreras MD Oct 05, 2017 11:34
[2017-10-05 12:24] VITALS: BP 102/51; PULSE 64; RESP 20; TEMP 98.3; O2SAT 95
[2017-10-05] MEDS: cefTRIAXone INJ 1,000 MG in SODIUM CHLORIDE 0.9% INJ 100 ML IV SCH (14:40)
== END 2017-10-05 16:17 | DRG 28 ==
LOC: NEPI 03:58 → NEDA 04:39 → EDBD 04:39 → N03A 05:55 → N05A 10-02 21:00
PROVIDERS: ADMIT Internal Medicine Critical Care Medicine; ATTEND Hospitalist
PROC: 00NW0ZZ Release Cervical Spinal Cord, Open Approach (ICD-10-PCS; 2017-09-28)
PROC: 4A11X4G Monitoring of Peripheral Nervous Electrical Activity, Intraoperative, External Approach (ICD-10-PCS; 2017-09-28)
PROC: 0RG207J Fusion of 2 or more Cervical Vertebral Joints with Autologous Tissue Substitute, Posterior Approach, Anterior Column, Open Approach (ICD-10-PCS; principal; 2017-09-28 08:50)
DX: S14.124A Central cord syndrome at C4 level of cervical spinal cord, initial encounter (principal); G82.52 Quadriplegia, C1-C4 incomplete; I95.9 Hypotension, unspecified; M48.02 Spinal stenosis, cervical region; N39.0 Urinary tract infection, site not specified; R55 Syncope and collapse; M25.78 Osteophyte, vertebrae; S80.212A Abrasion, left knee, initial encounter; S80.211A Abrasion, right knee, initial encounter; R00.1 Bradycardia, unspecified; D72.819 Decreased white blood cell count, unspecified; M47.816 Spondylosis without myelopathy or radiculopathy, lumbar region; M48.061 Spinal stenosis, lumbar region without neurogenic claudication; M47.814 Spondylosis without myelopathy or radiculopathy, thoracic region; F41.9 Anxiety disorder, unspecified; R73.9 Hyperglycemia, unspecified; W19.XXXA Unspecified fall, initial encounter; Y92.002 Bathroom of unspecified non-institutional (private) residence as the place of occurrence of the external cause
CPT/HCPCS: 70450; 71045; 72020; 72040; 72125; 72141; 72146; 72148; 72170; 76000; 80048; 80053; 80307; 81001; 82948; 83735; 84100; 84145; 84484; 85007; 85025; 85027; 85610; 85730; 86850; 86900; 86901; 87040; 87077; 87086; 87186; 87641; 93005; 93306; 93880; 93970; 94150; 94664; C1713; J0131; J0690; J0696; J1100; J1170; J1650; J1815; J2060; J2250; J2270; J2310; J2370; J2405; J2710; J3010; J3370; J3480; J7030; J7040; J7050; J7060; J7120; J8501; L0150; L0172

== ENCOUNTER 2017-10-31 15:45 | Inpatient (IN) | payer MEDICARE ==
[~2017-10-31] VITALS: Ht 165.1 cm; Wt 73.0 kg
[~2017-10-31 15:45] MED LIST: ACET325T15 PO; BETH10 PO; BISA10R RECTAL; COMMODE 3-IN-11 MIS; FAMO20TA2 PO; FERR325T20 PO; GETGO ROLLING W1 MI1; GNP1OIN TOPICAL; HYDR-3288 PO; LEVA250T14 PO; MIDO5TAB PO; PAXI10TA8 PO; PERI PO; PHEN-537 PO; POLY17S PO; Petrolat-Zinc Barrier Oint TOPICAL; TAMS5CAP PO; WHEEMIS3
[2017-10-31] MEDS ORDERED: SODIUM CHLOR 0.9% 1000 ML INJ 1,000 ML IV SCH (16:18)
[2017-10-31] MEDS ORDERED: fentaNYL CITRATE 250 MCG/5 ML AMP ONE (16:20)
[2017-10-31] MEDS ORDERED: SENNOSIDES 8.6 MG TAB PO PRN ×2 (16:30)
[2017-10-31] MEDS ORDERED: HYDROCORTISONE 1% OINT 30 GM TUBE TOPICAL PRN (16:30)
[2017-10-31] MEDS ORDERED: BISACODYL 10 MG SUPP RECTAL PRN ×3 (16:30)
[2017-10-31] MEDS ORDERED: MAGNESIUM HYDROXIDE SUSP 30 ML CUP PO PRN ×2 (16:30)
[2017-10-31] MEDS ORDERED: ZOLPIDEM TARTRATE 5 MG TAB PO PRN (16:30)
[2017-10-31] MEDS ORDERED: SODIUM CHLORIDE 0.9% FLUSH 10 ML FLUSH IV FLUSH PRN ×2 (16:30)
[2017-10-31] MEDS ORDERED: RESP: ALBUTEROL 2.5 MG/3 ML NEB (PRN) NEB (16:30)
[2017-10-31] MEDS ORDERED: ALUMINUM/MAGNESIUM/SIMETH 30 ML CUP PO PRN (16:30)
[2017-10-31] MEDS ORDERED: cloNIDine HCL 0.1 MG TAB PO PRN ×2 (16:30)
[2017-10-31] MEDS ORDERED: ACETAMINOPHEN/HYDROcodone 325 MG/10 MG TAB PO PRN (16:30)
[2017-10-31] MEDS ORDERED: MORPHINE SULFATE 4 MG/ML INJ IV PUSH PRN ×2 (16:30)
[2017-10-31] MEDS ORDERED: ACETAMINOPHEN 325 MG TAB PO PRN (16:30)
[2017-10-31] MEDS ORDERED: LACTULOSE SYRUP 20 GM/30 ML CUP PO PRN ×2 (16:30)
[2017-10-31] MEDS ORDERED: ceFAZolin 2 GM PREMIX 50 ML ONE (16:40)
--- NOTE | 2017-10-31 17:00 | PD.RAD ---
Post Procedure Progress Note Pre Procedure Diagnosis: (1) Status post laminectomy Post Procedure Diagnosis: (1) Status post laminectomy Procedure Date: Oct 31, 2017 Supervising Radiologist: Bhaskar Pedraza Estimated blood loss: none Anesthesia: Local, Conscious Sedation Plan of Activity Patient to Unit: Nursing Unit Patient Condition: Good Additional Comments: Lumbar drain placed at L4/L5 without difficulty. Catheter tip is at T8 Clear csf draining Full dictated report to follow See PACS Report for procedural detail/treatment Bhaskar Pedraza MD Oct 31, 2017 17:00
[2017-10-31 17:13] VITALS: BP 111/68; PULSE 58; RESP 17; TEMP 98.4; O2SAT 95
[2017-10-31 17:43] VITALS: BP 115/70; PULSE 62; RESP 18; O2SAT 96
[2017-10-31] MEDS: FERROUS SULFATE 325 MG (65 MG ELEMENTAL IRON) TAB PO SCH (18:22)
[2017-10-31] MEDS: NS + KCL 20 MEQ INJ 1,000 ML IV SCH (18:23)
[2017-10-31] MEDS: ONDANSETRON HCL 4 MG/2 ML VIAL IV PUSH PRN (18:23)
[2017-10-31 18:31] VITALS: BP 167/69; PULSE 54; RESP 20; TEMP 97; O2SAT 96
[2017-10-31 20:00] VITALS: BP 149/65; PULSE 56; RESP 16; TEMP 97.2; O2SAT 97
[2017-10-31] MEDS ORDERED: DOCUSATE SODIUM 50 MG/SENNA 8.6 MG TAB PO SCH ×2 (21:00)
[2017-10-31] MEDS: PETROLATUM 30 GM TUBE TOPICAL SCH (21:00)
[2017-10-31] MEDS: SODIUM CHLORIDE 0.9% FLUSH 10 ML FLUSH IV FLUSH SCH (21:00)
[2017-10-31] MEDS ORDERED: SODIUM CHLORIDE 0.9% FLUSH 10 ML FLUSH IV FLUSH SCH (21:00)
[2017-10-31] MEDS: DOCUSATE SODIUM 50 MG/SENNA 8.6 MG TAB PO SCH (21:15)
[2017-10-31] MEDS: TAMSULOSIN HCL 0.4 MG CAP PO SCH (21:15)
[2017-10-31] MEDS: BETHANECHOL CHL 10 MG TAB PO SCH (21:16)
[2017-10-31] MEDS: ACETAMINOPHEN/HYDROcodone 325 MG/10 MG TAB PO PRN (21:16)
[2017-10-31] MEDS: FAMOTIDINE 20 MG TAB PO SCH (21:16)
[2017-10-31] MEDS: POLYETHYLENE GLYCOL 17 GM PKG PO SCH (21:17)
[2017-11-01] VITALS: BP 146/73; PULSE 75; RESP 18; TEMP 99.1; O2SAT 96
[2017-11-01] MEDS: ACETAMINOPHEN/HYDROcodone 325 MG/10 MG TAB PO PRN (02:16)
[2017-11-01] MEDS: NS + KCL 20 MEQ INJ 1,000 ML IV SCH ×3 (03:35→23:54)
[2017-11-01 04:00] VITALS: BP 103/96; PULSE 56; RESP 16; TEMP 98; O2SAT 96
[2017-11-01] MEDS: BETHANECHOL CHL 10 MG TAB PO SCH ×3 (06:31→21:28)
[2017-11-01] MEDS: MIDODRINE 5 MG TAB PO SCH ×2 (06:31→12:32)
[2017-11-01] MEDS: PARoxetine HCL 20 MG TAB PO SCH (07:59)
[2017-11-01] MEDS: FAMOTIDINE 20 MG TAB PO SCH ×2 (07:59→20:29)
[2017-11-01] MEDS: SODIUM CHLORIDE 0.9% FLUSH 10 ML FLUSH IV FLUSH SCH ×2 (07:59→20:30)
[2017-11-01] MEDS: DOCUSATE SODIUM 50 MG/SENNA 8.6 MG TAB PO SCH ×2 (07:59→20:29)
[2017-11-01] MEDS: PETROLATUM 30 GM TUBE TOPICAL SCH ×2 (08:00→20:29)
[2017-11-01 08:10] VITALS: BP 111/64; PULSE 53; RESP 18; TEMP 98; O2SAT 96
[2017-11-01] MEDS ORDERED: PANTOPRAZOLE SOD 40 MG DELAYED RELEASE TAB PO SCH (09:00)
--- NOTE | 2017-11-01 09:57 | HHI.NSPN ---
(Simone Zavaleta) History Chief Complaint: drainage from posterior cervical incision. (Simone Zavaleta) Interval History 11/01/17: Pt awake and alert. Denies headache. Pt had more drainage from incision today. Lumbar spinal drain is in place. (Simone Zavaleta) Review of Systems General: Negative for: fever, chills, insomnia Respiratory: Negative for: shortness of breath, cough, sputum Cardiovascular: Negative for: chest pain Gastrointestinal: Negative for: nausea, vomitting, diarrhea, constipation ( Simone Zavaleta) Exam Results Vital Signs Date Time Temp Pulse Resp B/P (MAP) Pulse Ox O2 Delivery O2 Flow Rate FiO2 11/01/17 08:10 98.0 53 18 111/64 (80) 96 (Simone Zavaleta) Physical Examination General: Pt awake and alert. resting in bed. Eyes: Pupils equal. Sclera anicteric. Resp: CTA bilaterally. Heart: NSR no murmurs Abd: Soft positive bs Skin: Posterior cervical incision opening has gotten larger now approximately one cm and sutures have pulled through the skin on one side. The incision is draining clear looking fluid. No purulence is seen. Muscle: Moves all 4 extremities with good strength. Neuro: Pt awake and alert. Follows commands well. Speech clear and appropriate. Lumbar spinal drain in place. (Simone Zavaleta) Medical Decision Making Impression and Plan A: 66 y/o FM s/p C3-C6 posterior cervical laminectomy and decompression with C3 -C6 lateral mass fixation and fusion. She has developed a clear fluid drainage from her incision possibly CSF leak versus seroma. She is not complaining of headaches. She had recent percutaneous CT guided aspiration of the seroma recently. The opening was sutured closed with three sutures and held closed. She underwent a lumbar spinal drain yesterday. The incision has opened up last night and is now about a cm opening and again draining clear fluid without purulence. P: We will obtain a stat gram stain. Dr. Chinchilla is going to take pt to the OR for a posterior cervical pseudomeningocele repair tomorrow 11/02/17. Pt will be made NPO after midnight. Bandages will be changed tid and prn. (Simone Zavaleta) Attending Statement The exam, history, and the medical decision-making described in the above note were completed with the assistance of the mid-level provider. I reviewed and agree with the findings presented. I attest that I had a [id number] encounter with the patient on the same day, and personally performed and documented my assessment and findings in the medical record. Overall she is improving from her cervical spinal cord injury. Small area in the mid posterior cervical incision site with drainage noted despite placement of sutures and lumbar spinal drain. She did have a traumatic dural laceration with attempted repair during her cervical spine surgery but it appears that she has developed a pseudomeningocele. We'll proceed with the primary repair of the pseudomeningocele an incision debridement/closure. Discussed with patient and who understand and are in agreement. (Emil Chinchilla MD) Simone Zavaleta Nov 01, 2017 09:57 Emil Chinchilla MD Nov 01, 2017 13:17
--- NOTE | 2017-11-01 10:07 | RADRPT ---
EXAM DATE/TIME: 10/31/2017 16:23 [facility] COMPARISON: No previous studies available for comparison. INDICATIONS : Patient with a history of status post C3-C6 fusion, CSF leak. MEDICAL HISTORY : Migraines Arthritis Cardiovascular disease Diabetes Anxiety SURGIAL HISTORY : C3-C6 fusion Cholecystectomy ENCOUNTER: Initial ACUITY: 1 month PAIN SCORE: 3/10 LOCATION: Neck LUMBAR PUNCTURE TIME: 1650 FLUORO TIME: 2.8 minutes IMAGE SERIES: 2 LEVEL: Tip of lumbar drain was placed at T8 MEDICATION(S): 1.) 250 mcg fentanyl (Sublimaze) IV 2.) 2 g cefazolin (Ancef) IV Intra-procedural antibiotics were given as prescribed above. DEVICE(S): 1.) 5 [place] lumbar drain catheter PROCEDURE : 1. Fluoroscopically guided lumbar drain placement. 2. Conscious sedation with continuous EKG and oximetry monitoring. The risks, benefits and alternatives to the procedure were explained and verbal and written consent w as obtained. The site was prepped in sterile fashion. Full sterile technique was used, including ca p, mask, sterile gloves and gown and a large sterile sheet. Hand hygiene and 2% chlorhexidine and/or betadine/alcohol prep was utilized per protocol for cutaneous antisepsis. The skin and subcutaneous tissues were infiltrated with local anesthetic solution. With fluoroscopic guidance the lumbar thecal sac was punctured with a 14 gauge Touhy needle and a lum bar drain was placed with its tip at the level as described above and the catheter was sutured in ava ce. CSF was identified returning from the catheter at the termination of the procedure. Conscious sedation was performed with the prescribed dosages and duration as above in the presence of an independent trained radiology nurse to assist in the monitoring of the patient. EKG and oximetry remained stable throughout the procedure. The patient tolerated the procedure well and there were n o complications. The patient was sent to post anesthesia recovery in stable condition. CONCLUSION: Uncomplicated lumbar drain placement as above. Bhaskar Pedraza MD on November 01, 2017 at 10:05 Board Certified Radiologist. This report was verified electronically.
--- NOTE | 2017-11-01 10:46 | PD.CONS ---
HPI Service [facility] Hospital[facility] Consult Requested By Primary Care Physician Unknown Diagnoses: History of Present Illness Pt was admitted to [facility] 09/27 to 10/05. Pt had syncope episode. She had severe C-spine stenosis as a underlying condition and Hyperextension injury. MRI Lumbar spine (09/27) revealed Multilevel degenerative spondylosis of the lumbar spine most prominently at L3-4 with moderate to severe central canal narrowing to 6 mm. MRI cervical spine (09/27) revealed No acute fracture or subluxation. Prominent posterior longitudinal ligament calcifications with resultant severe central canal narrowing at C3-6. There is flattening of cervical cord at these levels with very subtle cord signal abnormality at C4-5. MRI thoracic spine (09/27) degenerative spondylosis of the mid thoracic spine most prominently at T6-9. There is effacement of the left anterior lateral recess T6-7. Otherwise, no significant central canal stenosis or cord signal abnormality. Patient is S/P posterior cervical C3-6 autograft fusion; C3, C4, C5 and C6 decompressive laminectomies; posterior C3-6 lateral mass fixation on 09/28/[address] Chinchilla. Transferred to [facility] on [facility] where pt reports she was getting much stronger in all 4 extremities and was due for d/c home tomorrow. On 10/25 she was brought down to CT for CT guided aspiration of what was felt to be cervical wound seroma. Then on 10/30 noted to have clear fluid drainage from the inferior aspect of the cervical incision. on 10/31 pt underwent lumbar drain placement with IR. today pt feels ok and the plan is OR for a posterior cervical pseudomeningocele repair tomorrow 11/02/17. Review of Systems Other cervical wound drainage Past Family Social History Past Medical History severe C-spine stenosis as a underlying condition and Hyperextension injury. MRI Lumbar spine (09/27) revealed Multilevel degenerative spondylosis of the lumbar spine most prominently at L3-4 with moderate to severe central canal narrowing to 6 mm. MRI cervical spine (09/27) revealed No acute fracture or subluxation. Prominent posterior longitudinal ligament calcifications with resultant severe central canal narrowing at C3-6. There is flattening of cervical cord at these levels with very subtle cord signal abnormality at C4-5. MRI thoracic spine (09/27) degenerative spondylosis of the mid thoracic spine most prominently at T6-9. There is effacement of the left anterior lateral recess T6-7. Otherwise, no significant central canal stenosis or cord signal abnormality. Patient is S/P posterior cervical C3-6 autograft fusion; C3, C4, C5 and C6 decompressive laminectomies; posterior C3-6 lateral mass fixation on 09/28/[address] Chinchilla. On 10/25 she was brought down to CT for CT guided aspiration of what was felt to be cervical wound seroma. -anxiety - 2-D echo 09/28/17 The left ventricular systolic function is low normal with an estimated ejection fraction in the range of 50-55%. [id number]-[id number] mitral valve regurgitation. There is trace tricuspid valve regurgitation. The pulmonary valve is not well visualized. technically difficult study - Ultrasound carotids (09/27) No evidence of flow-limiting carotid stenosis Reported Medications midodrine paxil flomax urecholine Allergies: Coded Allergies: No Known Allergies (Verified Allergy, Unknown, 09/27/17) Family History nc Social History no etoh/tob Physical Exam Vital Signs heart reg lung cta abd s/nt cervical collar lumbar drain noted with clear csf moves all 4 ext. right ue weaker than left. Vital Signs Date Time Temp Pulse Resp B/P (MAP) Pulse Ox O2 Delivery O2 Flow Rate FiO2 11/01/17 08:10 98.0 53 18 111/64 (80) 96 11/01/17 04:00 98.0 56 16 103/96 (98) 96 11/01/17 00:00 99.1 75 18 146/73 (97) 96 10/31/17 20:00 97.2 56 16 149/65 (93) 97 10/31/17 18:31 97.0 54 20 167/69 (101) 96 10/31/17 17:43 62 18 115/70 (85) 96 10/31/17 17:13 98.4 58 17 111/68 (82) 95 Assessment and Plan Problem List: (1) Pseudomeningocele ICD Codes: G96.19 - Other disorders of meninges, not elsewhere classified Status: Acute Plan: Pt was admitted to [facility] 09/27 to 10/05. Pt had syncope episode. She had severe C-spine stenosis as a underlying condition and Hyperextension injury. MRI Lumbar spine (09/27) revealed Multilevel degenerative spondylosis of the lumbar spine most prominently at L3-4 with moderate to severe central canal narrowing to 6 mm. MRI cervical spine (09/27) revealed No acute fracture or subluxation. Prominent posterior longitudinal ligament calcifications with resultant severe central canal narrowing at C3-6. There is flattening of cervical cord at these levels with very subtle cord signal abnormality at C4-5. MRI thoracic spine (09/27) degenerative spondylosis of the mid thoracic spine most prominently at T6-9. There is effacement of the left anterior lateral recess T6-7. Otherwise, no significant central canal stenosis or cord signal abnormality. Patient is S/P posterior cervical C3-6 autograft fusion; C3, C4, C5 and C6 decompressive laminectomies; posterior C3-6 lateral mass fixation on 09/28/[address] Chinchilla. Transferred to [facility] on 10/05 where pt reports she was getting much stronger in all 4 extremities and was due for d/c home tomorrow. On 10/25 she was brought down to CT for CT guided aspiration of what was felt to be cervical wound seroma. Then on 10/30 noted to have clear fluid drainage from the inferior aspect of the cervical incision. on 10/31 pt underwent lumbar drain placement with IR. Imp 1. cervical pseudomeningocele plan: NSG planning to the OR tomorrowf for posterior cervical pseudomeningocele repair cont supportive care dvt prophylaxis PT. Zay Contreras MD Nov 01, 2017 10:46
[2017-11-01 11:58] VITALS: BP 121/58; PULSE 56; RESP 18; TEMP 98.1; O2SAT 96
[2017-11-01] MEDS: ONDANSETRON HCL 4 MG/2 ML VIAL IV PUSH PRN (12:01)
[2017-11-01] MEDS: FERROUS SULFATE 325 MG (65 MG ELEMENTAL IRON) TAB PO SCH ×2 (12:33→17:44)
[2017-11-01] MEDS: ACETAMINOPHEN 325 MG TAB PO PRN ×2 (15:40→21:28)
[2017-11-01 16:28] VITALS: BP 131/60; PULSE 72; RESP 18; TEMP 98.2; O2SAT 96
[2017-11-01] MEDS: TAMSULOSIN HCL 0.4 MG CAP PO SCH (20:29)
[2017-11-01] MEDS: POLYETHYLENE GLYCOL 17 GM PKG PO SCH (20:30)
[2017-11-01 21:00] VITALS: BP 120/58; PULSE 68; RESP 18; TEMP 98.2; O2SAT 97
[2017-11-02] VITALS: BP 119/55; PULSE 63; RESP 18; TEMP 98.5; O2SAT 95
[2017-11-02] MEDS ORDERED: LACTATED RINGER'S 1000 ML IV PRN (04:00)
[2017-11-02] MEDS ORDERED: SODIUM CHLORID 0.9% 500 ML IV PRN (04:00)
[2017-11-02] MEDS ORDERED: CHLORHEXIDINE GLUCONATE 2 % 1 PACK (2 CLOTHS) TOPICAL PRN (04:00)
[2017-11-02] MEDS ORDERED: POVIDONE IODINE 5% (ANTISEPSIS KIT) 4 APPLICATIONS EACH NARE PRN (04:00)
[2017-11-02 05:00] VITALS: BP 117/56; PULSE 57; RESP 18; TEMP 98.2; O2SAT 97
[2017-11-02] MEDS ORDERED: THROMBIN (TOPICAL) 5,000 UNIT VIAL ONE (06:16)
[2017-11-02] MEDS ORDERED: VANCOMYCIN HCL 1000 MG VIAL ONE ×2 (06:16→09:05)
[2017-11-02] MEDS ORDERED: GELFOAM SIZE 100 ONE (06:16)
[2017-11-02] MEDS ORDERED: BUPIVACAINE/EPINEPHRINE 0.5% 50 ML VIAL ONE (06:19)
[2017-11-02] MEDS: BETHANECHOL CHL 10 MG TAB PO SCH ×2 (06:35→13:17)
[2017-11-02] MEDS ORDERED: ACETAMINOPHEN 1000 MG/100 ML 100 ML IV ONE (06:59)
[2017-11-02] MEDS: MIDODRINE 5 MG TAB PO SCH ×2 (07:00→12:09)
[2017-11-02] MEDS ORDERED: ARTIFICIAL TEARS OPTH OINT 3.5 APPLIC/3.5 GM TUBO ONE (07:00)
[2017-11-02] MEDS ORDERED: SUGAMMADEX SODIUM 200 MG/2 ML VIAL IV PUSH ONE (07:50)
[2017-11-02] MEDS ORDERED: APREPITANT 40 MG CAP ONE (08:16)
[2017-11-02] MEDS ORDERED: FAMOTIDINE 20 MG/2 ML VIAL ONE (08:16)
[2017-11-02 08:18] VITALS: BP 147/63; PULSE 52; RESP 20; TEMP 98.2; O2SAT 96
[2017-11-02] MEDS: NS + KCL 20 MEQ INJ 1,000 ML IV SCH ×2 (08:19→13:20)
[2017-11-02] MEDS: FAMOTIDINE 20 MG TAB PO SCH ×2 (08:46→20:03)
[2017-11-02] MEDS: SODIUM CHLORIDE 0.9% FLUSH 10 ML FLUSH IV FLUSH SCH ×2 (08:46→21:00)
[2017-11-02] MEDS: PETROLATUM 30 GM TUBE TOPICAL SCH ×2 (08:46→20:03)
[2017-11-02] MEDS: PARoxetine HCL 20 MG TAB PO SCH (08:46)
[2017-11-02] MEDS: DOCUSATE SODIUM 50 MG/SENNA 8.6 MG TAB PO SCH ×2 (08:46→20:03)
[2017-11-02] MEDS ORDERED: VANCOMYCIN 500 MG VIAL ONE (10:00)
--- NOTE | 2017-11-02 10:35 | PD.OP ---
Operative Report Date of Surgery: Nov 02, 2017 Preoperative Diagnosis: C3-6 posterior pseudomeningocele/CSF leak with wound dehiscence; History of cervical spinal cord injury with multilevel stenosis status posterior C3-6 laminectomy with lateral mass fixation/fusion Postoperative Diagnosis: Same Procedure: Posterior cervical C6-C7 laminectomy with primary dural repair for CSF leak/ pseudomeningocele; microsurgical technique Anesthesia: Gen. endotracheal by Christine desai Surgeon: Emil Chinchilla M.D. Oiler Bander(s): Madeleine Olivo Operation and Findings: Following administration of general endotracheal anesthesia with the neck maintained in neutral position in a [place] collar, the patient was placed in a prone position with the head secured in a horseshoe headrest in neutral position of the neck and all pressure points adequately padded. Posterior cervical region was then sterilely prepped and draped in the incision site infiltrated with 0.5% Marcaine with epinephrine solution. Less than centimeter area in the inferior portion of the incision was noted to have some intermittent clear fluid drainage. The posterior cervical incision site was then made at the previous site and underlying sutures removed and encountered this pseudomeningocele CSF fluid consistency subcutaneous fluid which extended through the fascia and the inferior portion to the epidural space. No pus or obvious infection was noted and intraoperative cultures were negative for any organisms. The fascia was also debrided and opened with removal of the sutures along the paraspinal muscles which were retracted. Further dissection and taking his microtechnique with microscope magnification. The right C7 level small dural perforation at the edge of the lamina was noted with CSF leakage. C6-7 laminectomy on the right side was widened to get decent circumferential exposure of the dura around the opening. The dural opening was then primarily repaired with 5-0 Prolene running locked stitches in a watertight fashion. This was reinforced with DuraSeal and at this point with Valsalva maneuvering no CSF leak was noted. The area was then copiously irrigated and the muscle and fascia approximated using 2-0 Vicryl stitches and the final skin closure was with 0 Prolene vertical mattress interrupted sutures. Sterile dressing was then applied in the neck immobilized in a [place] collar and she was then extubated and taken to the recovery room. She had a lumbar spinal drain in place also. There were no intraoperative complications and all sponge and needle count was correct at the end of the procedure. Estimated blood loss was around 5 cc. Emil Chinchilla MD Nov 02, 2017 10:35
[2017-11-02] MEDS ORDERED: MIDAZOLAM HCL 2 MG/2 ML VIAL ONE (10:55)
[2017-11-02] MEDS ORDERED: DO NOT ADM ANY ANTICOAGULANT DRUGS PRN (11:00)
[2017-11-02] MEDS ORDERED: *morphine SULFATE 4 MG/ML PERIprocedure ONLY ONE ×2 (11:02→11:10)
[2017-11-02 11:49] LABS: AUTOMATED NEUTROPHIL # 2.1 TH/MM3 (1.8-7.7); BASOPHIL % 1.1 % (0.0-2.0); EOSINOPHIL # 0.1 TH/MM3 (0-0.4); EOSINOPHIL % 1.9 % (0.0-4.0); HEMOGLOBIN 10.7 GM/DL (11.6-15.3); LYMPH % 26.9 % (9.0-44.0); LYMPHOCYTE # 0.8 TH/MM3 (1.0-4.8); MEAN CELL VOLUME 99.1 FL (80.0-100.0); MEAN CORPUSCULAR HEMOGLOBIN 34.3 PG (27.0-34.0); MEAN CORPUSCULAR HGB CONC 34.6 % (32.0-36.0); MEAN PLATELET VOLUME 7.1 FL (7.0-11.0); MONOCYTE # 0.1 TH/MM3 (0-0.9); NEUT % 66.1 % (16.0-70.0); PLATELET COUNT 196 TH/MM3 (150-450); RED BLOOD COUNT 3.13 MIL/MM3 (4.00-5.30); RED CELL DISTRIBUTION WIDTH 14.6 % (11.6-17.2); WHITE BLOOD COUNT 3.1 TH/MM3 (4.0-11.0)
[2017-11-02] MEDS ORDERED: ePHEDrine/NS 25 MG/5 ML SYRINGE IV ONE (12:00)
[2017-11-02] MEDS ORDERED: ONDANSETRON HCL 4 MG/2 ML VIAL IV ONE (12:00)
[2017-11-02] MEDS ORDERED: LIDOCAINE HCL 1% PF 5 ML SYRINGE OTHER ONE (12:00)
[2017-11-02] MEDS ORDERED: DEXAMETHASONE SOD PHOS 4 MG/ML VIAL IV ONE (12:00)
[2017-11-02] MEDS ORDERED: SODIUM CHLORID 0.9% 500 ML INJ 500 ML IV ONE (12:00)
[2017-11-02] MEDS ORDERED: ROCURONIUM INJ 50 MG/5 ML SYRINGE IV PUSH ONE (12:00)
[2017-11-02] MEDS ORDERED: PROPOFOL 200 MG/20 ML AMP IV ONE (12:00)
[2017-11-02] MEDS ORDERED: LACTATED RINGER'S 1000 ML INJ 2,000 ML IV ONE (12:00)
[2017-11-02] MEDS: ACETAMINOPHEN/HYDROcodone 325 MG/10 MG TAB PO PRN ×2 (12:09→16:12)
[2017-11-02] MEDS: FERROUS SULFATE 325 MG (65 MG ELEMENTAL IRON) TAB PO SCH ×2 (12:09→16:12)
[2017-11-02 12:30] LABS: BICARBONATE 23.9 MEQ/L (21.0-32.0); CALCIUM 8.5 MG/DL (8.5-10.1); CREATININE 0.72 MG/DL (0.50-1.00)
[2017-11-02 12:31] VITALS: BP 147/65; PULSE 73; RESP 20; TEMP 97.4; O2SAT 98
[2017-11-02] MEDS ORDERED: Vancomycin Consult Pharmacy 1 EA OTHER SCH (13:00)
[2017-11-02 16:43] VITALS: BP 137/63; PULSE 68; RESP 20; TEMP 98.3; O2SAT 99
[2017-11-02] MEDS: POLYETHYLENE GLYCOL 17 GM PKG PO SCH (20:03)
[2017-11-02] MEDS: TAMSULOSIN HCL 0.4 MG CAP PO SCH (20:03)
[2017-11-02 20:33] VITALS: BP 127/57; PULSE 74; RESP 18; TEMP 98.3; O2SAT 95
[2017-11-02] MEDS ORDERED: VANCOMYCIN INJ 1,000 MG in SODIUM CHLOR 0.9% 250 ML INJ 250 ML IV SCH (21:00)
[2017-11-03 00:06] VITALS: BP 157/67; PULSE 64; RESP 18; TEMP 98.1; O2SAT 95
[2017-11-03] MEDS: NS + KCL 20 MEQ INJ 1,000 ML IV SCH ×3 (00:08→22:20)
[2017-11-03] MEDS: BETHANECHOL CHL 10 MG TAB PO SCH ×3 (00:39→12:56)
[2017-11-03] MEDS: ACETAMINOPHEN/HYDROcodone 325 MG/10 MG TAB PO PRN ×3 (00:40→18:02)
[2017-11-03] MEDS: VANCOMYCIN INJ 1,250 MG in SODIUM CHLOR 0.9% 250 ML INJ 250 ML IV SCH ×2 (04:13→22:27)
[2017-11-03 04:46] VITALS: BP 124/60; PULSE 65; RESP 18; TEMP 98.7; O2SAT 95
[2017-11-03 07:49] VITALS: BP 149/65; PULSE 64; RESP 20; TEMP 98.5; O2SAT 95
[2017-11-03] MEDS: SODIUM CHLORIDE 0.9% FLUSH 10 ML FLUSH IV FLUSH SCH ×2 (07:49→21:00)
[2017-11-03] MEDS: MIDODRINE 5 MG TAB PO SCH ×2 (07:54→11:13)
[2017-11-03] MEDS: PARoxetine HCL 20 MG TAB PO SCH (07:55)
[2017-11-03] MEDS: DOCUSATE SODIUM 50 MG/SENNA 8.6 MG TAB PO SCH ×2 (07:55→20:07)
[2017-11-03] MEDS: FAMOTIDINE 20 MG TAB PO SCH ×2 (07:55→20:07)
[2017-11-03] MEDS: PETROLATUM 30 GM TUBE TOPICAL SCH (07:56)
--- NOTE | 2017-11-03 09:47 | HHI.NSPN ---
History Chief Complaint: Status post pseudomeningocele repair, doing well with mild incisional pain. Interval History 11/01/17: Pt awake and alert. Denies headache. Pt had more drainage from incision today. Lumbar spinal drain is in place. 11/03/17: Pt awake and alert. Sitting up in chair, Lumbar drain in place. She would like to have Tylenol for occasional headache rather than pain medication. She feels deconditioned and weak in UEs and LEs. Review of Systems General: Negative for: fever, chills, insomnia Respiratory: Negative for: shortness of breath, cough, sputum Cardiovascular: Negative for: chest pain Gastrointestinal: Negative for: nausea, vomitting, diarrhea, constipation Exam Results Vital Signs Date Time Temp Pulse Resp B/P (MAP) Pulse Ox O2 Delivery O2 Flow Rate FiO2 11/03/17 07:49 98.5 64 20 149/65 (93) 95 11/02/17 11:35 Nasal Cannula 2 Intake and Output 11/03/17 11/03/17 11/04/17 08:00 16:00 00:00 Intake Total 240 ml Output Total 1750 ml Balance -1510 ml Physical Examination General: Pt awake and alert. resting in bed. Eyes: Pupils equal. Sclera anicteric. Resp: CTA bilaterally. Heart: NSR no murmurs Abd: Soft positive bs Skin: Posterior cervical incision has sutures in place. Post op drainage on bandage. No active drainage from incision. New bandage placed. Muscle: She has bilateral deltoid weakness 2/5, biceps, triceps 3-/5, HI 2/5. She has right EHL weakness 2/5 strength in LEs 4/5 with feeling unsteady with standing. [place] cervical collar in place. Neuro: Pt awake and alert. Follows commands well. Speech clear and appropriate. Lumbar spinal drain in place. Lab, Micro, Other Results Last Impressions Lumbar Puncture Fluoroscopy 10/31/17 0000 Signed Impressions: Service Date/Time: Tuesday, October 31, 2017 16:23 - CONCLUSION: Uncomplicated lumbar drain placement as above. Bhaskar Pedraza MD Laboratory Tests Test 11/02/17 11:00 White Blood Count 3.1 TH/MM3 Red Blood Count 3.13 MIL/MM3 Hemoglobin 10.7 GM/DL Hematocrit 31.0 % Mean Corpuscular Volume 99.1 FL Mean Corpuscular Hemoglobin 34.3 PG Mean Corpuscular Hemoglobin Concent 34.6 % Red Cell Distribution Width 14.6 % Platelet Count 196 TH/MM3 Mean Platelet Volume 7.1 FL Neutrophils (%) (Auto) 66.1 % Lymphocytes (%) (Auto) 26.9 % Monocytes (%) (Auto) 4.0 % Eosinophils (%) (Auto) 1.9 % Basophils (%) (Auto) 1.1 % Neutrophils # (Auto) 2.1 TH/MM3 Lymphocytes # (Auto) 0.8 TH/MM3 Monocytes # (Auto) 0.1 TH/MM3 Eosinophils # (Auto) 0.1 TH/MM3 Basophils # (Auto) 0.0 TH/MM3 CBC Comment DIFF FINAL Differential Comment Blood Urea Nitrogen 6 MG/DL Creatinine 0.72 MG/DL Random Glucose 191 MG/DL Calcium Level 8.5 MG/DL Sodium Level 138 MEQ/L Potassium Level 3.7 MEQ/L Chloride Level 105 MEQ/L Carbon Dioxide Level 23.9 MEQ/L Anion Gap 9 MEQ/L Estimat Glomerular Filtration Rate 81 ML/MIN Medical Decision Making Impression and Plan A: 66 y/o FM s/p C3-C6 posterior cervical laminectomy and decompression with C3 -C6 lateral mass fixation and fusion. She has developed a clear fluid drainage from her incision possibly CSF leak versus seroma. She is not complaining of headaches. She had recent percutaneous CT guided aspiration of the seroma recently. The opening was sutured closed with three sutures and held closed. She underwent a lumbar spinal drain. The incision has opened up and was now about a cm opening and again draining clear fluid without purulence. She underwent Posterior cervical C6-C7 laminectomy with primary dural repair for CSF leak/pseudomeningocele on 11/02/17. She is sitting up in chair with lumbar spinal drain in place and complaints of weakness in UEs more than LEs. P: Bandage changed this morning and continue to monitor. Continue with lumbar spinal drain to keep pressure low for better healing. Continue with PT. Given pts deconditioning over last few days she would benefit from inpatient rehab after hospitalization. Tylenol for headache per pts request Simone Zavaleta Nov 03, 2017 9:47 am
[2017-11-03] MEDS ORDERED: ACETAMINOPHEN 500 MG CPLT PO PRN (10:00)
--- NOTE | 2017-11-03 10:36 | HHI.PR ---
Subjective Remarks Pt doing well post-operatively She is concerned about the weakness in her arms which has gotten worse since she has been out of [place] Pt still has Goldman in place Objective Vitals Vital Signs Date Time Temp Pulse Resp B/P (MAP) Pulse Ox O2 Delivery O2 Flow Rate FiO2 11/03/17 07:49 98.5 64 20 149/65 (93) 95 11/03/17 04:46 98.7 65 18 124/60 (81) 95 11/03/17 00:06 98.1 64 18 157/67 (97) 95 11/02/17 20:33 98.3 74 18 127/57 (80) 95 11/02/17 16:43 98.3 68 20 137/63 (87) 99 11/02/17 12:31 97.4 73 20 147/65 (92) 98 11/02/17 11:35 97.4 78 12 141/67 (91) 100 Nasal Cannula 2 11/02/17 11:15 79 12 133/57 (82) 100 Nasal Cannula 2 11/02/17 11:00 83 12 133/60 (84) 100 Nasal Cannula 2 11/02/17 10:48 97.4 90 12 141/63 (89) 98 Nasal Cannula 4 Result Diagram: 11/02/17 1100 11/02/17 1100 Other Results Laboratory Tests Test 11/02/17 11:00 White Blood Count 3.1 TH/MM3 Red Blood Count 3.13 MIL/MM3 Hemoglobin 10.7 GM/DL Hematocrit 31.0 % Mean Corpuscular Volume 99.1 FL Mean Corpuscular Hemoglobin 34.3 PG Mean Corpuscular Hemoglobin Concent 34.6 % Red Cell Distribution Width 14.6 % Platelet Count 196 TH/MM3 Mean Platelet Volume 7.1 FL Neutrophils (%) (Auto) 66.1 % Lymphocytes (%) (Auto) 26.9 % Monocytes (%) (Auto) 4.0 % Eosinophils (%) (Auto) 1.9 % Basophils (%) (Auto) 1.1 % Neutrophils # (Auto) 2.1 TH/MM3 Lymphocytes # (Auto) 0.8 TH/MM3 Monocytes # (Auto) 0.1 TH/MM3 Eosinophils # (Auto) 0.1 TH/MM3 Basophils # (Auto) 0.0 TH/MM3 CBC Comment DIFF FINAL Differential Comment Blood Urea Nitrogen 6 MG/DL Creatinine 0.72 MG/DL Random Glucose 191 MG/DL Calcium Level 8.5 MG/DL Sodium Level 138 MEQ/L Potassium Level 3.7 MEQ/L Chloride Level 105 MEQ/L Carbon Dioxide Level 23.9 MEQ/L Anion Gap 9 MEQ/L Estimat Glomerular Filtration Rate 81 ML/MIN Imaging Last Impressions Lumbar Puncture Fluoroscopy 10/31/17 0000 Signed Impressions: Service Date/Time: Tuesday, October 31, 2017 16:23 - CONCLUSION: Uncomplicated lumbar drain placement as above. Bhaskar Pedraza MD Objective Remarks General: NAD, AAOx3 Neck: C-Collar in place Chest: CTA Cardiac: Regular Abd: +BS, soft ND/NT : Goldman cath in place Ext: Weakness in bilateral UE and difficulty with grasping cups and pushing the buttons on the remote A/P Problem List: (1) Pseudomeningocele ICD Codes: G96.19 - Other disorders of meninges, not elsewhere classified Status: Acute Plan: Cervical pseudomeningocele - Pt was admitted to [facility] 09/27 to 10/05. Pt had syncope episode. She had severe C-spine stenosis as a underlying condition and hyperextension injury. - MRI Lumbar spine (09/27) revealed Multilevel degenerative spondylosis of the lumbar spine most prominently at L3-4 with moderate to severe central canal narrowing to 6 mm. - MRI cervical spine (09/27) revealed No acute fracture or subluxation. Prominent posterior longitudinal ligament calcifications with resultant severe central canal narrowing at C3-6. There is flattening of cervical cord at these levels with very subtle cord signal abnormality at C4-5. - MRI thoracic spine (09/27) degenerative spondylosis of the mid thoracic spine most prominently at T6-9. There is effacement of the left anterior lateral recess T6-7. Otherwise, no significant central canal stenosis or cord signal abnormality. - Patient underwent posterior cervical C3-6 autograft fusion; C3, C4, C5 and C6 decompressive laminectomies; posterior C3-6 lateral mass fixation on 09/28/[address] Chinchilla. - Transferred to [facility] where pt reports she was getting much stronger in all 4 extremities. On 10/25 she was brought down to CT for CT guided aspiration of what was felt to be cervical wound seroma. Then on 10/30 noted to have clear fluid drainage from the inferior aspect of the cervical incision. - On 10/31 pt underwent lumbar drain placement with IR. - Pt underwent Posterior cervical C6-C7 laminectomy with primary dural repair for CSF leak/pseudomeningocele repair on 11/02/[address] Chinchilla - Sadi Goldman - Cont supportive care - PT/OT - DVT prophylaxis Assessment and Plan Patient examined. Assessment and plan formulated with Arabella Beltran PA-C. I agree with the above. s/p c6/7 lami and pseudomeningocele repair she was making progress at [place]. Her arms are weaker again She would benefit greatly from transferring back to [place] early next week when cleared from NSG standpt. Lumbar drain in place d/c emmanuel. Arabella Beltran Nov 03, 2017 10:36 Zay Contreras MD Nov 03, 2017 11:18
[2017-11-03] MEDS: FERROUS SULFATE 325 MG (65 MG ELEMENTAL IRON) TAB PO SCH ×2 (11:13→17:17)
[2017-11-03 12:24] VITALS: BP 127/61; PULSE 56; RESP 20; TEMP 98.1; O2SAT 96
[2017-11-03 16:19] VITALS: BP 161/70; PULSE 62; RESP 20; TEMP 98.5; O2SAT 97
[2017-11-03] MEDS: POLYETHYLENE GLYCOL 17 GM PKG PO SCH (20:07)
[2017-11-03] MEDS: CYCLOBENZAPRINE HCL 10 MG TAB PO PRN (20:07)
[2017-11-03] MEDS: TAMSULOSIN HCL 0.4 MG CAP PO SCH (20:07)
[2017-11-03 21:00] VITALS: BP 113/68; PULSE 66; RESP 18; TEMP 98; O2SAT 96
[2017-11-04] VITALS: BP 120/59; PULSE 66; RESP 18; TEMP 98.9; O2SAT 95
[2017-11-04] MEDS: ACETAMINOPHEN/HYDROcodone 325 MG/10 MG TAB PO PRN ×4 (00:41→22:30)
[2017-11-04] MEDS: BETHANECHOL CHL 10 MG TAB PO SCH ×4 (00:41→20:39)
[2017-11-04 05:48] VITALS: BP_SYST 127; PULSE 64; RESP 18; TEMP 98.6; O2SAT 95
[2017-11-04] MEDS: MIDODRINE 5 MG TAB PO SCH ×2 (06:50→12:02)
[2017-11-04 08:00] VITALS: BP 142/65; PULSE 59; RESP 18; TEMP 98.4; O2SAT 97
[2017-11-04] MEDS: PETROLATUM 30 GM TUBE TOPICAL SCH ×2 (08:38→20:39)
[2017-11-04] MEDS: DOCUSATE SODIUM 50 MG/SENNA 8.6 MG TAB PO SCH ×2 (08:41→20:39)
[2017-11-04] MEDS: FAMOTIDINE 20 MG TAB PO SCH ×2 (08:41→20:39)
[2017-11-04] MEDS: PARoxetine HCL 20 MG TAB PO SCH (08:45)
[2017-11-04] MEDS: SODIUM CHLORIDE 0.9% FLUSH 10 ML FLUSH IV FLUSH SCH ×2 (09:00→21:00)
--- NOTE | 2017-11-04 10:55 | HHI.PR ---
Subjective Remarks in chair. no complaints Objective Vitals in chair c collar no distress oriented upper ext weakness noted right worse than left lumbar drain. clear csf Vital Signs Date Time Temp Pulse Resp B/P (MAP) Pulse Ox O2 Delivery O2 Flow Rate FiO2 11/04/17 08:00 98.4 59 18 142/65 (90) 97 11/04/17 05:48 98.6 64 18 127/ 95 11/04/17 00:00 98.9 66 18 120/59 (79) 95 11/03/17 21:00 98.0 66 18 113/68 (83) 96 11/03/17 16:19 98.5 62 20 161/70 (100) 97 11/03/17 12:24 98.1 56 20 127/61 (83) 96 11/04/17 11/04/17 11/05/17 15:00 23:00 07:00 Output Total 70 ml Balance -70 ml Drainage Total 70 ml Result Diagram: 11/02/17 1100 11/02/17 1100 Imaging Last Impressions Lumbar Puncture Fluoroscopy 10/31/17 0000 Signed Impressions: Service Date/Time: Tuesday, October 31, 2017 16:23 - CONCLUSION: Uncomplicated lumbar drain placement as above. Bhaskar Pedraza MD A/P Problem List: (1) Pseudomeningocele ICD Codes: G96.19 - Other disorders of meninges, not elsewhere classified Status: Acute Plan: Cervical pseudomeningocele - Pt was admitted to [facility] 09/27 to 10/05. Pt had syncope episode. She had severe C-spine stenosis as a underlying condition and hyperextension injury. - MRI Lumbar spine (09/27) revealed Multilevel degenerative spondylosis of the lumbar spine most prominently at L3-4 with moderate to severe central canal narrowing to 6 mm. - MRI cervical spine (09/27) revealed No acute fracture or subluxation. Prominent posterior longitudinal ligament calcifications with resultant severe central canal narrowing at C3-6. There is flattening of cervical cord at these levels with very subtle cord signal abnormality at C4-5. - MRI thoracic spine (09/27) degenerative spondylosis of the mid thoracic spine most prominently at T6-9. There is effacement of the left anterior lateral recess T6-7. Otherwise, no significant central canal stenosis or cord signal abnormality. - Patient underwent posterior cervical C3-6 autograft fusion; C3, C4, C5 and C6 decompressive laminectomies; posterior C3-6 lateral mass fixation on 09/28/[address] Chinchilla. - Transferred to [place] rehab on 10/05 where pt reports she was getting much stronger in all 4 extremities. On 10/25 she was brought down to CT for CT guided aspiration of what was felt to be cervical wound seroma. Then on 10/30 noted to have clear fluid drainage from the inferior aspect of the cervical incision. - On 10/31 pt underwent lumbar drain placement with IR. - Pt underwent Posterior cervical C6-C7 laminectomy with primary dural repair for CSF leak/pseudomeningocele repair on 11/02/[address] Chinchilla - Removed Goldman - Cont supportive care - PT/OT - DVT prophylaxis plan for return to [place] early next week when ok with Zay Crocker MD Nov 04, 2017 10:55
[2017-11-04] MEDS: NS + KCL 20 MEQ INJ 1,000 ML IV SCH ×2 (11:00→23:57)
--- NOTE | 2017-11-04 11:31 | HHI.NSPN ---
History Chief Complaint: Status post pseudomeningocele repair, doing well with mild incisional pain. Interval History 11/01/17: Pt awake and alert. Denies headache. Pt had more drainage from incision today. Lumbar spinal drain is in place. 11/03/17: Pt awake and alert. Sitting up in chair, Lumbar drain in place. She would like to have Tylenol for occasional headache rather than pain medication. She feels deconditioned and weak in UEs and LEs. 11/04/17: Pt awake and alert. She is sitting up in chair. Complains on intermittent neck pain. No radiculopathy in UEs. She has some paresthesias in fingers. Weakness in extremities persists. Review of Systems General: Negative for: fever, chills, insomnia Respiratory: Negative for: shortness of breath, cough, sputum Cardiovascular: Negative for: chest pain Gastrointestinal: Negative for: nausea, vomitting, diarrhea, constipation Exam Results Vital Signs Date Time Temp Pulse Resp B/P (MAP) Pulse Ox O2 Delivery O2 Flow Rate FiO2 11/04/17 08:00 98.4 59 18 142/65 (90) 97 11/02/17 11:35 Nasal Cannula 2 Intake and Output 11/04/17 11/04/17 11/05/17 08:00 16:00 00:00 Output Total 70 ml Balance -70 ml Physical Examination General: Pt awake and alert. resting in bed. Eyes: Pupils equal. Sclera anicteric. Resp: CTA bilaterally. Heart: NSR no murmurs Abd: Soft positive bs Skin: Posterior cervical incision has sutures in place. Post op drainage on bandage. No active drainage from incision. New bandage placed. Muscle: She has bilateral deltoid weakness 2/5, biceps, triceps 3-/5, HI 2/5. She has right EHL weakness 2/5 strength in LEs 4/5 with feeling unsteady with standing. [place] cervical collar in place. Neuro: Pt awake and alert. Follows commands well. Speech clear and appropriate. Lumbar spinal drain in place. Lab, Micro, Other Results Last Impressions Lumbar Puncture Fluoroscopy 10/31/17 0000 Signed Impressions: Service Date/Time: Tuesday, October 31, 2017 16:23 - CONCLUSION: Uncomplicated lumbar drain placement as above. Bhaskar Pedraza MD 11/04/17 11/04/17 11/05/17 15:00 23:00 07:00 Output Total 70 ml Balance -70 ml Drainage Total 70 ml Medical Decision Making Impression and Plan A: 66 y/o FM s/p C3-C6 posterior cervical laminectomy and decompression with C3 -C6 lateral mass fixation and fusion. She has developed a clear fluid drainage from her incision possibly CSF leak versus seroma. She is not complaining of headaches. She had recent percutaneous CT guided aspiration of the seroma recently. The opening was sutured closed with three sutures and held closed. She underwent a lumbar spinal drain. The incision has opened up and was now about a cm opening and again draining clear fluid without purulence. She underwent Posterior cervical C6-C7 laminectomy with primary dural repair for CSF leak/pseudomeningocele on 11/02/17. She is sitting up in chair with lumbar spinal drain in place and complaints of weakness in UEs more than LEs. P: Bandage changed this morning and continue to monitor. Continue with lumbar spinal drain to keep pressure low for better healing. Continue with PT. Given pts deconditioning over last few days she would benefit from inpatient rehab after hospitalization. Simone Zavaleta Nov 04, 2017 11:31 am
[2017-11-04 12:00] VITALS: BP 114/58; PULSE 58; RESP 18; TEMP 99.1; O2SAT 98
[2017-11-04] MEDS: CYCLOBENZAPRINE HCL 10 MG TAB PO PRN (12:02)
[2017-11-04] MEDS: FERROUS SULFATE 325 MG (65 MG ELEMENTAL IRON) TAB PO SCH ×2 (12:02→17:24)
[2017-11-04] MEDS ORDERED: PHARMACY ORDERED LAB ONE (15:45)
[2017-11-04 16:00] VITALS: BP 140/63; PULSE 62; RESP 18; TEMP 98; O2SAT 98
[2017-11-04] MEDS: VANCOMYCIN INJ 1,250 MG in SODIUM CHLOR 0.9% 250 ML INJ 250 ML IV SCH (17:26)
[2017-11-04 20:00] VITALS: BP 122/57; PULSE 76; RESP 18; TEMP 98.9; O2SAT 93
[2017-11-04] MEDS: POLYETHYLENE GLYCOL 17 GM PKG PO SCH (20:39)
[2017-11-04] MEDS: TAMSULOSIN HCL 0.4 MG CAP PO SCH (20:39)
[2017-11-05] VITALS: BP 113/74; PULSE 84; RESP 20; TEMP 97.9; O2SAT 95
[2017-11-05 04:00] VITALS: BP 101/44; PULSE 66; RESP 18; TEMP 97.8; O2SAT 93
[2017-11-05] MEDS: BETHANECHOL CHL 10 MG TAB PO SCH ×3 (04:45→23:19)
[2017-11-05] MEDS: ACETAMINOPHEN/HYDROcodone 325 MG/10 MG TAB PO PRN ×3 (04:45→21:47)
[2017-11-05] MEDS: NS + KCL 20 MEQ INJ 1,000 ML IV SCH ×2 (07:00→15:44)
[2017-11-05 07:35] VITALS: BP 127/59; PULSE 69; RESP 18; TEMP 98; O2SAT 92
[2017-11-05] MEDS: SODIUM CHLORIDE 0.9% FLUSH 10 ML FLUSH IV FLUSH SCH ×2 (09:00→21:00)
[2017-11-05] MEDS: PETROLATUM 30 GM TUBE TOPICAL SCH ×2 (09:00→21:00)
[2017-11-05] MEDS: FAMOTIDINE 20 MG TAB PO SCH ×2 (09:57→23:20)
[2017-11-05] MEDS: DOCUSATE SODIUM 50 MG/SENNA 8.6 MG TAB PO SCH ×2 (09:57→23:20)
[2017-11-05] MEDS: PARoxetine HCL 20 MG TAB PO SCH (09:57)
[2017-11-05] MEDS: VANCOMYCIN INJ 1,250 MG in SODIUM CHLOR 0.9% 250 ML INJ 250 ML IV SCH (09:58)
--- NOTE | 2017-11-05 10:52 | HHI.NSPN ---
(Simone Zavaleta) History Chief Complaint: Status post pseudomeningocele repair, doing well with mild incisional pain. (Simone Zavaleta) Interval History 11/01/17: Pt awake and alert. Denies headache. Pt had more drainage from incision today. Lumbar spinal drain is in place. 11/03/17: Pt awake and alert. Sitting up in chair, Lumbar drain in place. She would like to have Tylenol for occasional headache rather than pain medication. She feels deconditioned and weak in UEs and LEs. 11/04/17: Pt awake and alert. She is sitting up in chair. Complains on intermittent neck pain. No radiculopathy in UEs. She has some paresthesias in fingers. Weakness in extremities persists. 11/05/17: Pt awake and alert. Sitting up in chair. Complains of intermittent neck pain controlled with pain medication. No radiculopathy in UEs. Left hand numbness. Weakness in extremities with deconditioning. (Simone Zavaleta) Review of Systems General: Negative for: fever, chills, insomnia Respiratory: Negative for: shortness of breath, cough, sputum Cardiovascular: Negative for: chest pain Gastrointestinal: Negative for: nausea, vomitting, diarrhea, constipation ( Simone Zavaleta) Exam Results Vital Signs Date Time Temp Pulse Resp B/P (MAP) Pulse Ox O2 Delivery O2 Flow Rate FiO2 11/05/17 07:35 98.0 69 18 127/59 (81) 92 11/02/17 11:35 Nasal Cannula 2 Intake and Output 11/05/17 11/05/17 11/06/17 08:00 16:00 00:00 Output Total 70 ml Balance -70 ml (Simone Zavaleta) Physical Examination General: Pt awake and alert. resting in bed. Eyes: Pupils equal. Sclera anicteric. Resp: CTA bilaterally. Heart: NSR no murmurs Abd: Soft positive bs Skin: Posterior cervical incision has sutures in place. Post op drainage on bandage. No active drainage from incision. New bandage placed. Muscle: She has bilateral deltoid weakness 2/5, biceps, triceps 3-/5, HI 2/5. She has right EHL weakness 2/5 strength in LEs 4/5 with feeling unsteady with standing. [place] cervical collar in place. Neuro: Pt awake and alert. Follows commands well. Speech clear and appropriate. Lumbar spinal drain in place. (Simone Zavaleta) Lab, Micro, Other Results Last Impressions Lumbar Puncture Fluoroscopy 10/31/17 0000 Signed Impressions: Service Date/Time: Tuesday, October 31, 2017 16:23 - CONCLUSION: Uncomplicated lumbar drain placement as above. Bhaskar Pedraza MD Laboratory Tests Test 11/04/17 16:03 Vancomycin Level Trough 13.4 MCG/ML 11/05/17 11/05/17 11/06/17 15:00 23:00 07:00 Output Total 70 ml Balance -70 ml Drainage Total 70 ml (Simone Zavaleta) Medical Decision Making Impression and Plan A: 66 y/o FM s/p C3-C6 posterior cervical laminectomy and decompression with C3 -C6 lateral mass fixation and fusion. She has developed a clear fluid drainage from her incision possibly CSF leak versus seroma. She is not complaining of headaches. She had recent percutaneous CT guided aspiration of the seroma recently. The opening was sutured closed with three sutures and held closed. She underwent a lumbar spinal drain. The incision has opened up and was now about a cm opening and again draining clear fluid without purulence. She underwent Posterior cervical C6-C7 laminectomy with primary dural repair for CSF leak/pseudomeningocele on 11/02/17. She is sitting up in chair with lumbar spinal drain in place and complaints of weakness in UEs more than LEs. P: Bandage changed this morning and continue to monitor. Continue with lumbar spinal drain to keep pressure low for better healing. Continue with PT. Given pts deconditioning over last few days she would benefit from inpatient rehab after hospitalization. (Simone Zavaleta) Attending Statement The exam, history, and the medical decision-making described in the above note were completed with the assistance of the mid-level provider. I reviewed and agree with the findings presented. I attest that I had a [id number] encounter with the patient on the same day, and personally performed and documented my assessment and findings in the medical record. No drainage from the cervical incision site and wound cultures are negative. We'll continue with the lumbar spinal drainage still tomorrow and subsequent to drain removal and rehabilitation placement. Discussed with patient and at bedside. (Emil Chinchilla MD) Simone Zavaleta Nov 05, 2017 10:51 Emil Chinchilla MD Nov 05, 2017 15:45
[2017-11-05 11:33] VITALS: BP 118/59; PULSE 57; RESP 18; TEMP 98.3; O2SAT 96
[2017-11-05] MEDS: FERROUS SULFATE 325 MG (65 MG ELEMENTAL IRON) TAB PO SCH ×2 (12:41→16:41)
[2017-11-05] MEDS: MIDODRINE 5 MG TAB PO SCH (12:42)
[2017-11-05 16:00] VITALS: BP 133/63; PULSE 75; RESP 18; TEMP 98.3; O2SAT 95
[2017-11-05 20:22] VITALS: BP 143/63; PULSE 76; RESP 18; TEMP 98.6; O2SAT 95
[2017-11-05] MEDS: POLYETHYLENE GLYCOL 17 GM PKG PO SCH (23:19)
[2017-11-05] MEDS: TAMSULOSIN HCL 0.4 MG CAP PO SCH (23:19)
[2017-11-06] VITALS: BP 123/86; PULSE 93; RESP 20; TEMP 98; O2SAT 94
[2017-11-06] MEDS: ACETAMINOPHEN/HYDROcodone 325 MG/10 MG TAB PO PRN ×3 (02:15→22:12)
[2017-11-06 04:00] VITALS: BP 139/60; PULSE 62; RESP 18; TEMP 98.2; O2SAT 92
[2017-11-06] MEDS: NS + KCL 20 MEQ INJ 1,000 ML IV SCH ×3 (04:40→22:27)
[2017-11-06] MEDS: VANCOMYCIN INJ 1,250 MG in SODIUM CHLOR 0.9% 250 ML INJ 250 ML IV SCH ×2 (04:41→22:12)
[2017-11-06] MEDS: BETHANECHOL CHL 10 MG TAB PO SCH ×3 (05:40→22:11)
[2017-11-06] MEDS: MIDODRINE 5 MG TAB PO SCH ×2 (05:49→12:10)
[2017-11-06 08:10] VITALS: BP 140/64; PULSE 61; RESP 18; TEMP 98.1; O2SAT 95
[2017-11-06] MEDS: PARoxetine HCL 20 MG TAB PO SCH (08:11)
[2017-11-06] MEDS: DOCUSATE SODIUM 50 MG/SENNA 8.6 MG TAB PO SCH ×2 (08:11→22:11)
[2017-11-06] MEDS: FAMOTIDINE 20 MG TAB PO SCH ×2 (08:11→22:11)
[2017-11-06] MEDS: PETROLATUM 30 GM TUBE TOPICAL SCH ×2 (08:12→21:00)
[2017-11-06] MEDS: SODIUM CHLORIDE 0.9% FLUSH 10 ML FLUSH IV FLUSH SCH ×2 (08:13→21:00)
--- NOTE | 2017-11-06 09:41 | HHI.NSPN ---
History Chief Complaint: Status post pseudomeningocele repair, doing well with mild incisional pain. Interval History 11/01/17: Pt awake and alert. Denies headache. Pt had more drainage from incision today. Lumbar spinal drain is in place. 11/03/17: Pt awake and alert. Sitting up in chair, Lumbar drain in place. She would like to have Tylenol for occasional headache rather than pain medication. She feels deconditioned and weak in UEs and LEs. 11/04/17: Pt awake and alert. She is sitting up in chair. Complains on intermittent neck pain. No radiculopathy in UEs. She has some paresthesias in fingers. Weakness in extremities persists. 11/05/17: Pt awake and alert. Sitting up in chair. Complains of intermittent neck pain controlled with pain medication. No radiculopathy in UEs. Left hand numbness. Weakness in extremities with deconditioning. 11/06/17: Pt awake and alert. Laying in bed. No complaints. lumbar drain in place. Review of Systems General: Negative for: fever, chills, insomnia Respiratory: Negative for: shortness of breath, cough, sputum Cardiovascular: Negative for: chest pain Gastrointestinal: Negative for: nausea, vomitting, diarrhea, constipation Exam Results Vital Signs Date Time Temp Pulse Resp B/P (MAP) Pulse Ox O2 Delivery O2 Flow Rate FiO2 11/06/17 08:10 98.1 61 18 140/64 (89) 95 11/02/17 11:35 Nasal Cannula 2 Intake and Output 11/06/17 11/06/17 11/07/17 08:00 16:00 00:00 Intake Total 1250 ml Balance 1250 ml Physical Examination General: Pt awake and alert. resting in bed. Eyes: Pupils equal. Sclera anicteric. Resp: CTA bilaterally. Heart: NSR no murmurs Abd: Soft positive bs Skin: Posterior cervical incision has sutures in place. Post op drainage on bandage. No active drainage from incision. New bandage placed. Muscle: She has bilateral deltoid weakness 2/5, biceps, triceps 3-/5, HI 2/5. She has right EHL weakness 2/5 strength in LEs 4/5 with feeling unsteady with standing. [place] cervical collar in place. Neuro: Pt awake and alert. Follows commands well. Speech clear and appropriate. Lumbar spinal drain in place. Lab, Micro, Other Results Last Impressions Lumbar Puncture Fluoroscopy 10/31/17 0000 Signed Impressions: Service Date/Time: Tuesday, October 31, 2017 16:23 - CONCLUSION: Uncomplicated lumbar drain placement as above. Bhaskar Pedraza MD Medical Decision Making Impression and Plan A: 66 y/o FM s/p C3-C6 posterior cervical laminectomy and decompression with C3 -C6 lateral mass fixation and fusion. She has developed a clear fluid drainage from her incision possibly CSF leak versus seroma. She is not complaining of headaches. She had recent percutaneous CT guided aspiration of the seroma recently. The opening was sutured closed with three sutures and held closed. She underwent a lumbar spinal drain. The incision has opened up and was now about a cm opening and again draining clear fluid without purulence. She underwent Posterior cervical C6-C7 laminectomy with primary dural repair for CSF leak/pseudomeningocele on 11/02/17. P: Bandage changed this morning and continue to monitor. Lumbar drain removed by me. Pt tolerated well. Encouraged her to lay on her sides. She will be on bedrest for 6 hours. Given pts deconditioning over last few days she would benefit from inpatient rehab after hospitalization. Simone Zavaleta Nov 06, 2017 9:41 am
[2017-11-06] MEDS: FERROUS SULFATE 325 MG (65 MG ELEMENTAL IRON) TAB PO SCH ×2 (10:55→16:24)
[2017-11-06 12:03] VITALS: BP 133/58; PULSE 57; RESP 17; TEMP 98.5; O2SAT 95
[2017-11-06 16:12] VITALS: BP 156/63; PULSE 56; RESP 17; TEMP 97.8; O2SAT 97
[2017-11-06 20:00] VITALS: BP 135/66; PULSE 65; RESP 18; TEMP 98.9; O2SAT 97
[2017-11-06] MEDS ORDERED: PHARMACY ORDERED LAB ONE (21:45)
[2017-11-06] MEDS: TAMSULOSIN HCL 0.4 MG CAP PO SCH (22:11)
[2017-11-06] MEDS: POLYETHYLENE GLYCOL 17 GM PKG PO SCH (22:12)
[2017-11-07] VITALS: BP 113/70; PULSE 62; RESP 18; TEMP 98.9; O2SAT 93
[2017-11-07 04:00] VITALS: BP 107/51; PULSE 65; RESP 18; TEMP 98.8; O2SAT 93
[2017-11-07] MEDS: BETHANECHOL CHL 10 MG TAB PO SCH (05:48)
[2017-11-07] MEDS: MIDODRINE 5 MG TAB PO SCH ×2 (05:48→11:19)
[2017-11-07] MEDS: ACETAMINOPHEN 325 MG TAB PO PRN ×2 (05:53→05:55)
[2017-11-07] MEDS: FAMOTIDINE 20 MG TAB PO SCH (07:46)
[2017-11-07] MEDS: DOCUSATE SODIUM 50 MG/SENNA 8.6 MG TAB PO SCH (07:46)
[2017-11-07] MEDS: PARoxetine HCL 20 MG TAB PO SCH (07:46)
[2017-11-07] MEDS: NS + KCL 20 MEQ INJ 1,000 ML IV SCH (07:47)
[2017-11-07] MEDS: PETROLATUM 30 GM TUBE TOPICAL SCH (07:47)
[2017-11-07] MEDS: SODIUM CHLORIDE 0.9% FLUSH 10 ML FLUSH IV FLUSH SCH (07:48)
[2017-11-07 08:16] VITALS: BP 136/63; PULSE 53; RESP 17; TEMP 97.6; O2SAT 95
[2017-11-07] MEDS ORDERED: ENOXAPARIN SODIUM 40 MG/0.4 ML SYRINGE SQ SCH (09:00)
[2017-11-07] MEDS: ACETAMINOPHEN/HYDROcodone 325 MG/10 MG TAB PO PRN (09:31)
--- NOTE | 2017-11-07 10:16 | HHI.NSPN ---
History Chief Complaint: Status post pseudomeningocele repair, doing well with mild incisional pain. Interval History 11/01/17: Pt awake and alert. Denies headache. Pt had more drainage from incision today. Lumbar spinal drain is in place. 11/03/17: Pt awake and alert. Sitting up in chair, Lumbar drain in place. She would like to have Tylenol for occasional headache rather than pain medication. She feels deconditioned and weak in UEs and LEs. 11/04/17: Pt awake and alert. She is sitting up in chair. Complains on intermittent neck pain. No radiculopathy in UEs. She has some paresthesias in fingers. Weakness in extremities persists. 11/05/17: Pt awake and alert. Sitting up in chair. Complains of intermittent neck pain controlled with pain medication. No radiculopathy in UEs. Left hand numbness. Weakness in extremities with deconditioning. 11/06/17: Pt awake and alert. Laying in bed. No complaints. lumbar drain in place. 11/07/17: Pt awake and alert. Sitting up in chair. No radiculopathy in UEs. No spinal headaches. Weakness in UEs persists, she states she is going to have outpatient rehab. Review of Systems General: Negative for: fever, chills, insomnia Respiratory: Negative for: shortness of breath, cough, sputum Cardiovascular: Negative for: chest pain Gastrointestinal: Negative for: nausea, vomitting, diarrhea, constipation Exam Results Vital Signs Date Time Temp Pulse Resp B/P (MAP) Pulse Ox O2 Delivery O2 Flow Rate FiO2 11/07/17 08:16 97.6 53 17 136/63 (87) 95 Intake and Output 11/07/17 11/07/17 11/08/17 08:00 16:00 00:00 Intake Total 120 ml Balance 120 ml Physical Examination General: Pt awake and alert. Sitting up in chair. Eyes: Pupils equal. Sclera anicteric. Resp: CTA bilaterally. Heart: NSR no murmurs Abd: Soft positive bs Skin: Posterior cervical incision has sutures in place. Post op drainage on bandage. No active drainage from incision. New bandage placed. Lumbar bandage dry no drainage. New bandage changed. Muscle: She has bilateral deltoid weakness 2/5, biceps, triceps 3-/5, HI 2/5. She has right EHL weakness 2/5 strength in LEs 4/5 with feeling unsteady with standing. [place] cervical collar in place. Neuro: Pt awake and alert. Pupils equal. Follows commands well. Speech clear and appropriate. No drainage from lumbar spinal drain exit site. Lab, Micro, Other Results Last Impressions Lumbar Puncture Fluoroscopy 10/31/17 0000 Signed Impressions: Service Date/Time: Tuesday, October 31, 2017 16:23 - CONCLUSION: Uncomplicated lumbar drain placement as above. Bhaskar Pedraza MD Laboratory Tests Test 11/06/17 22:00 Vancomycin Level Trough 13.4 MCG/ML Medical Decision Making Impression and Plan A: 66 y/o FM s/p C3-C6 posterior cervical laminectomy and decompression with C3 -C6 lateral mass fixation and fusion. She has developed a clear fluid drainage from her incision possibly CSF leak versus seroma. She is not complaining of headaches. She had recent percutaneous CT guided aspiration of the seroma recently. The opening was sutured closed with three sutures and held closed. She underwent a lumbar spinal drain. The incision has opened up and was now about a cm opening and again draining clear fluid without purulence. She underwent Posterior cervical C6-C7 laminectomy with primary dural repair for CSF leak/pseudomeningocele on 11/02/17. Lumbar drain removed 11/06/17, no drainage noted. P: Follow up AP and Lateral cervical x-ray this morning. D/C home today with outpatient rehab. Remove sutures 11/14/17. Simone Zavaleta Nov 07, 2017 10:16 am
[2017-11-07 10:36] VITALS: RESP 16
[2017-11-07] MEDS: FERROUS SULFATE 325 MG (65 MG ELEMENTAL IRON) TAB PO SCH (11:19)
--- NOTE | 2017-11-07 11:54 | HHI.FF ---
Face to Face Verification Diagnosis: (1) Pseudomeningocele (2) Post surgical seroma; post laminectomy (3) Impaired mobility and activities of daily living Home Health Nursing Order: Wound care and dressing changes Nursing assessment with vital signs I have seen patient Tanisha Gonzalez on 11/07/17. My clinical findings support the need for the requested home health care services because: Deconditioned w/ increased weakness High risk of falls I certify that my clinical findings support that this patient is homebound because: Post-op weakness Unsteady gait/balance Unable to use public transportation Simone Zavaleta Nov 07, 2017 11:54 am
--- NOTE | 2017-11-07 12:11 | RADRPT ---
EXAM DATE/TIME: 11/07/2017 10:52 [facility] COMPARISON: [facility] ([facility]), October 13, 2017, 13:00. INDICATIONS : Post cervical spine fusion. MEDICAL HISTORY : Cardiovascular disease. Diabetes mellitus type II. migraines, arthritis, SURGICAL HISTORY : Cholecystectomy. C3-C6 fusion ENCOUNTER: Subsequent ACUITY: 1 month PAIN SCORE: 0/10 LOCATION: neck FINDINGS: Posterior cervical fusion hardware is noted from C3 through C6. Cervical spondylosis is noted at C2-3 and C5-6. There is no acute fracture or prevertebral soft tissue swelling. The bony relationship and alignment between C1 and C2 is well maintained. CONCLUSION: Stable posterior cervical fusion from C3 through C6. No acute fracture or subluxation . Cervical spondylosis at C2-3 and C5-6. Drew Crystal MD on November 07, 2017 at 12:07 Board Certified Radiologist. This report was verified electronically.
== END 2017-11-07 12:49 | disposition home health service (06) | DRG 29 ==
LOC: HRIP 15:45 → N05A 18:15
PROVIDERS: ADMIT Neurological Surgery; ATTEND Neurological Surgery
PROC: 009U30Z Drainage of Spinal Canal with Drainage Device, Percutaneous Approach (ICD-10-PCS; 2017-10-31)
PROC: 0JD70ZZ Extraction of Back Subcutaneous Tissue and Fascia, Open Approach (ICD-10-PCS; 2017-11-02)
PROC: 00QT0ZZ Repair Spinal Meninges, Open Approach (ICD-10-PCS; principal; 2017-11-02 08:27)
DX: G97.82 Other postprocedural complications and disorders of nervous system (principal); G96.0 Cerebrospinal fluid leak; T81.30XA Disruption of wound, unspecified, initial encounter; G96.19 Other disorders of meninges, not elsewhere classified; F41.9 Anxiety disorder, unspecified; M47.816 Spondylosis without myelopathy or radiculopathy, lumbar region; M47.814 Spondylosis without myelopathy or radiculopathy, thoracic region; R51 Headache; Z98.1 Arthrodesis status; R53.1 Weakness; S14.12 Central cord syndrome of cervical spinal cord; Y83.8 Other surgical procedures as the cause of abnormal reaction of the patient, or of later complication, without mention of misadventure at the time of the procedure; W19.XXXS Unspecified fall, sequela
CPT/HCPCS: 63741; 72040; 77003; 80048; 80202; 85025; 87015; 87070; 87102; 87116; 87205; 87206; 94150; 99152; 99153; C1713; C1755; J0131; J0690; J1100; J1650; J2250; J2270; J2405; J3010; J3370; J3480; J7040; J7050; J7120; J8501